=== PATIENT | male | born 1960 | race Caucasian/White ===

== ENCOUNTER 2019-06-30 16:23 | Emergency (ER) | payer MEDICARE, MEDICAID, SELFPAY ==
[2019-06-30 16:25] VITALS: BP 150/78; PULSE 73; RESP 16; TEMP 36.4; O2SAT 96; BMI 36.7
--- NOTE | 2019-06-30 16:35 | ED_ITS ---
Entered by Rodrigue Willis LPN, acting as scribe for Livia Dugan DO HPI - SOB/Dyspnea General: Chief Complaint: Shortness of Breath/Dyspnea Stated Complaint: SOB Time Seen by Provider: 06/30/19 16:34 Source: patient and family (spouse) Mode of arrival: ambulatory Limitations: no limitations History of Present Illness: HPI Narrative: 58 yo male with h/o Asthma presents with c/o SOB that started this am and has worsened. He does have an inhaler to use at home, without a spacer. Spouse could hear he was having increased sob when they were sitting at the table this afternoon. He also reports back pain in the mid to upper back this afternoon. He denies chest pain. Pt is Diabetic, has not checked his sugar today. MD elicited complaint: shortness of breath Pertinent past history: asthma Onset (ago): day(s) (onset today, this am) Timing: progressively worsening Exacerbating factors: exertion and talking Relieving factors: rest (some improvement with rest. ) Associated symptoms: Deny abdominal pain, chest pain, extremity pain, fever(s), hemoptysis, nausea, polydipsia, polyuria or vomiting Review of Systems Const: Denies: fever, chills, change in appetite or malaise Eyes: Denies: change in vision, blurry vision, eye discharge or eye redness ENMT: Denies: throat pain, uvular edema, painful swallowing, mouth pain, d ental pain, nasal congestion or facial/sinus pain Card: Denies: chest pain, irregular heart rhythm or leg pain with exertion Resp: Reports: shortness of breath; Denies: productive cough, wheezing or coughing up blood GI: Denies: abdominal pain, nausea, vomiting, diarrhea, constipation or fecal incontinence : Denies: flank pain, painful urination, urinary frequency, urinary urgency or urinary hesitancy Musc: Reports: back pain; Denies: neck pain, extremity pain or extremity swelling Skin/Breast: Denies: rash, itching, redness, yellow skin or dry skin Neuro: Denies: headache, numbness in extremities, weakness in extremities, changes in sensation, lack of coordination or difficulty walking Psych: Denies: anxiety, depression, mood swings, panic attacks, sleeping less, suicidal ideation or homicidal ideation Endo: Denies: excessive urination, excessive thirst or tired all the time Jose/Lymph: Denies: easy bruising, petechiae or enlarged lymph nodes All/Imm: Denies: hives, throat swelling, facial swelling, acute wheezing or seasonal allergies PFSH ED PFSH: Statuses (acute, chronic, etc) shown below reflect problem list status as previously entered and may not be historically accurate Social History Smoking and tobacco status: current every day smoker Physical Exam Const: COMMON NORMALS: no apparent distress, oriented x3, no limitations, healthy appearing, alert and well nourished GENERAL APPEARANCE: cooperative, comfortable, well kempt and well developed ORIENTATION/CONSCIOUSNESS: Yes awake, Yes oriented to person, Yes oriented to place and Yes oriented to time HENMT: COMMON NORMALS: normocephalic, head/scalp atraumatic, hearing grossly normal bilaterally, external ears normal, EAC's normal, TM's normal bilaterally, external nose normal, nasal mucous membranes and turbinates normal, moist oral mucous membranes, oropharynx normal, dentition normal and gingiva normal HEAD & SCALP: normal to inspection, normocephalic and atraumatic FACE & SINUS: normal facial exam NOSE: external nose normal and nasal mucous membranes and turbinates normal EXTERNAL EAR: Yes external ears normal EXTERNAL AUDITORY CANAL: EAC's normal TYMPANIC MEMBRANE: TM's normal bilaterally MOUTH: oral and palatal mucosa normal, lip normal and tongue normal THROAT: no uvular edema Eye: COMMON NORMALS: PERRL, EOMs intact bilaterally, conjunctivae normal, no scleral icterus and normal visual lawson by confrontation GENERAL EYE: normal appearance of both eyes and normal light reflex VISUAL ACUITY: Yes acuity normal ALIGNMENT: Yes alignment normal PERIORBITAL: periorbital findings normal EYELID: eyelids normal CONJUNCTIVA: Yes conjunctivae normal SCLERA: sclerae normal PUPIL: Yes PERRL and Yes accommodation reflex normal DIRECT OPHTHALMOSCOPY: Yes normal light reflex Neck/C-Spine: COMMON NORMALS: full ROM, no lymphadenopathy, supple, no meningeal signs and no JVD GENERAL: Yes normal visual inspection CAROTIDS: Yes normal carotid upstroke CERVICAL SPINE: Yes cervical ROM normal Lymph: LYMPHATIC: no lymphadenopathy noted Chest: COMMONS NORMALS: inspection of chest normal CHEST: Yes symmetrical chest wall rise Resp: COMMON NORMALS: normal respiratory effort, no retractions and no use of accessory muscles EFFORT & INSPECTION: Yes able to speak in complete sentences and Yes symmetric chest movement AUSCULTATION: no rales, no rhonchi, no wheezes and diminished lung sounds diffuse Cardio: COMMON NORMALS: no JVD, regular rate, regular rhythm, S1 normal heart sound, S2 normal heart sound, no murmurs and peripheral pulses 2+ throughout RATE: regular rate RHYTHM: regular rhythm HEART SOUNDS: S1 normal and S2 normal PERIPHERAL PULSES: pulses 2+ throughout GI: COMMON NORMALS: normal to inspection, nondistended, normoactive bowel sounds and non-tender : COMMON NORMALS: Yes no CVA tenderness BLADDER/KIDNEY EXAM: Yes no CVA tenderness Back/Pelvis: COMMON NORMALS: no CVA tenderness, thoracic and lumbar spine normal to inspection, no thoracic nor lumbar tenderness and thoraco-lumbar ROM normal Extremity: COMMON NORMALS: normal to inspection, full ROM, normal capillary refill, no calf tenderness and no pedal edema Neuro: COMMON NORMALS: oriented x3, CN's II-XII intact bilaterally, moves all extremities, no focal motor deficits, no sensory deficits noted and gait normal SENSORIUM/ORIENTATION: Yes alert, Yes oriented to person, Yes oriented to place and Yes oriented to time MENINGEAL SIGNS: Yes no meningeal signs SPEECH: speech normal GAIT: Yes normal gait MOTOR EXAM: strength 5/5 throughout, no pronator drift and no tremor noted Psych: COMMON NORMALS: mental status grossly normal, thought process normal, cooperative, affect normal, speech normal and activity/motor behavior normal APPEARANCE: Yes well kempt SPEECH: Yes normal speech THOUGHT PROCESS: normal thought process THOUGHT CONTENT: Yes normal thought content INSIGHT: insight good Skin: COMMON NORMALS: no rashes or lesions noted, no wounds, skin turgor normal and no jaundice GENERAL SKIN EXAM: no rashes or lesions noted and turgor normal Course ED course: Patient is feeling better after meds and mag. Ambulated around the department without issue. WIll provide aerochamber for MDI and dc home with short steroid burst due to DM history, and doxycycline, pt agrees, will follow up with PCP next week. Vital Signs: Vital signs: Vital Signs Temperature 97.6 F 06/30/19 16:25 Pulse Rate 72 06/30/19 17:13 Respiratory Rate 16 06/30/19 17:13 Blood Pressure 116/72 06/30/19 16:47 Pulse Oximetry 94 06/30/19 17:13 MDM - SOB/Dyspnea Lab Data: Labs: Lab Results 06/30/19 Range/Units 16:52 POC Glucose 143 (70-110) mg/dL Imaging Data^: CXR: Attestation: I personally reviewed and interpreted this imaging study as follows: My impression: nad EKG Data^: EKG 1: Computer Generated Interpretation: Measurements Intervals [place] Rate: 64 P: 39 DE: 227 QRS: 5 QRSD: 122 T: 29 QT: 404 QTc: 418 SINUS RHYTHM WITH FIRST DEGREE AV BLOCK INFERIOR MYOCARDIAL INFARCTION , PROBABLY OLD [40+ ms Q WAVE AND/OR ST/T AB ABNORMALITY IN II/aVF] No previous ECG available for comparison [id number] Dictated By:INTERFACE,USER Signed By:Signed Date/Time: DD/ 1705 Discharge Plan Discharge Patient Disposition: Home, Self-Care Clinical Impression: Acute exacerbation of chronic obstructive airways disease Condition: Stable Prescriptions: New doxycycline monohydrate 100 mg capsule 100 mg PO BID 7 Days Qty: 14 RF: 0 prednisone 50 mg tablet 50 mg PO DAILY 7 Days RF: 0 Discharge Diet: Usual diet Discharge Activity: Resume usual activity Patient Instructions: COPD Coding Level of Care Code ED Payment Rep for Chg Fwd Exam Problem Focused The documentation recorded by the Alba soliman Dani Elizabeth, LPN, accurately reflects the service I personally performed and the decisions made by Ritchie garrett Amanda, DO Jun 30, 2019 16:23
[2019-06-30 16:47] VITALS: BP 116/72; PULSE 72; RESP 17; O2SAT 94
--- NOTE | 2019-06-30 16:47 | ECG_ITS ---
Measurements Intervals [place] Rate: 64 P: 39 [place]: 227 QRS: 5 QRSD: 122 T: 29 QT: 404 QTc: 418 SINUS RHYTHM WITH FIRST DEGREE AV BLOCK INFERIOR MYOCARDIAL INFARCTION , PROBABLY OLD [40+ ms Q WAVE AND/OR ST/T AB ABNORMALITY IN II/aVF] No previous ECG available for comparison Electronically Signed On 07-01-2019 19:12:31 CAREER INFORMATION SPECIALIST by Senait Hartman M.D. [id number] f
--- NOTE | 2019-06-30 16:47 | XRR_ITS ---
PROCEDURE INFORMATION: Exam: XR Chest, 1 View Exam date and time: 06/30/2019 5:13 PM Age: 58 years old Clinical indication: Shortness of breath; Patient HX: PT denies HX of surgery, SOB increased last 2-3 days, PT is a current smoker; Additional info: SOA TECHNIQUE: Imaging protocol: XR of the chest Views: 1 view. COMPARISON: CR Chest 2 views* [id number] 08/07/2016 1:15 PM FINDINGS: Lungs: Unremarkable. No consolidation. Unchanged granulomas and mild fibrosis. Pleural space: Unremarkable. No pleural effusion. No pneumothorax. Heart/Mediastinum: Upper limits of normal. Bones/joints: Unremarkable. XR/XR chest 1V portable [id number] IMPRESSION: No acute findings.
[2019-06-30 16:55] LABS: Glucose Point of Care 143 mg/dL (70-110)
[2019-06-30] MEDS: magnesium sulfate premix 2 GM/50 ML PIGGYBACK IV (16:55)
[2019-06-30 17:05] VITALS: PULSE 74; RESP 16; O2SAT 94
[2019-06-30] MEDS: ipratropium-albuterol 3 mL Neb INHALATION (17:07)
[2019-06-30 17:13] VITALS: PULSE 72; RESP 16; O2SAT 94
[2019-06-30 18:28] VITALS: BP 132/76; PULSE 83; RESP 17; O2SAT 97
== END 2019-06-30 18:32 | disposition home or self-care (01) ==
PROVIDERS: Emergency Provider Emergency Medicine
DX: J44.1 Chronic obstructive pulmonary disease with (acute) exacerbation (principal); F17.210 Nicotine dependence, cigarettes, uncomplicated
CPT/HCPCS: 36416; 71045; 82962; 93005; 94640; 96365; 96374; 99282; J2930; J3475

== ENCOUNTER 2019-07-12 23:14 | Emergency (ER) | payer MEDICARE, MEDICAID, SELFPAY ==
[2019-07-12 23:19] VITALS: BP 135/88; PULSE 71; RESP 20; TEMP 36.4; O2SAT 99; BMI 36.7
--- NOTE | 2019-07-12 23:21 | ED_ITS ---
Entered by Priscilla Gerard, acting as scribe for Teresa Edwards Jul 12, 2019 23:14 HPI - SOB/Dyspnea General: Chief Complaint: Shortness of Breath/Dyspnea Stated Complaint: sob Time Seen by Provider: 07/12/19 23:17 History of Present Illness: HPI Narrative: 58 yo m came to the er pov with family for shortness of breath. Onset was tonight. Pt states that he has asthma and was having some chest tightness. Pt also states that he has a productive cough. MD elicited complaint: shortness of breath and cough Pertinent past history: asthma Onset (ago): day(s) (today) Timing: improved Severity: mild Exacerbating factors: nothing Relieving factors: nothing Associated symptoms: Reports cough; Deny abdominal pain, chest congestion, chest pain, diaphoresis, dizziness, e xtremity pain, fever(s), hemoptysis, nausea, orthopnea, palpitations, polydipsia, syncope or vomiting Treatment prior to arrival: none Review of Systems General: Reports: other (negative unless marked) Const: Denies: fever, chills, body aches, fatigue, malaise or diaphoresis Eyes: Denies: change in vision or blurry vision ENMT: Denies: throat pain, painful swallowing, hoarseness, ear pain, ear discharge, Change in hearing or nasal discharge Card: Denies: chest pain, palpitations, irregular heart rhythm, syncope, pre- syncope, shortness of breath on exertion or shortness of breath when lying down Resp: Reports: productive cough; Denies: shortness of breath, non-productive cough, wheezing, coughing up blood or chest congestion GI: Denies: abdominal pain, nausea, vomiting, vomiting blood, coffee grounds in vomit, diarrhea, constipation, cramping, blood in stool or black tarry stool : Denies: flank pain, difficulty urinating, painful urination, urinary frequency, urinary urgency, decreased urine ouput, urinary incontinence or blood in urine Musc: Denies: neck pain, back pain, extremity pain, extremity swelling, joint pain, joint swelling, joint warmth or joint stiffness Skin/Breast: Denies: rash, skin tenderness or yellow skin Neuro: Denies: headache, numbness in extremities, weakness in extremities, changes in sensation, lack of coordination, difficulty walking, dizziness, vertigo or confusion Endo: Denies: excessive thirst, tired all the time, cold intolerance, excessive sweating, flushing or hot flashes Jose/Lymph: Denies: easy bruising, easy bleeding, petechiae or enlarged lymph nodes All/Imm: Denies: acute wheezing PFSH ED PFSH: Statuses (acute, chronic, etc) shown below reflect problem list status as previously entered and may not be historically accurate Medical History (Updated 07/13/19 @ 01:29 by Teresa Edwards) Hypercholesteremia (Acute) Hypertension (Acute) Myocardial infarction (Acute) Social History Smoking and tobacco status: current every day smoker Physical Exam Const: COMMON NORMALS: no apparent distress, oriented x3, no limitations, healthy appearing and well nourished EXAM LIMITATIONS: no altered mental status GENERAL APPEARANCE: cooperative, well kempt and well developed ORIENTATION/CONSCIOUSNESS: Yes awake HENMT: COMMON NORMALS: normocephalic, head/scalp atraumatic, hearing grossly normal bilaterally, external ears normal, EAC's normal, external nose normal and moist oral mucous membranes HEAD & SCALP: normal to inspection, normocephalic and atraumatic FACE & SINUS: normal facial exam and face symmetric NOSE: external nose normal and nares normal EXTERNAL EAR: Yes external ears normal EXTERNAL AUDITORY CANAL: EAC's normal MOUTH: oral and palatal mucosa normal and tongue normal Eye: COMMON NORMALS: PERRL, EOMs intact bilaterally, conjunctivae normal and no scleral icterus GENERAL EYE: normal appearance of both eyes and normal light reflex CONJUNCTIVA: Yes conjunctivae normal SCLERA: sclerae normal CORNEA: Yes corneas normal PUPIL: Yes PERRL DIRECT OPHTHALMOSCOPY: Yes normal light reflex Neck/C-Spine: COMMON NORMALS: full ROM, no lymphadenopathy, supple, no meningeal signs and no JVD GENERAL: Yes normal visual inspection and Yes trachea midline CERVICAL SPINE: Yes cervical ROM normal Chest: COMMONS NORMALS: inspection of chest normal and palpation of chest normal Resp: COMMON NORMALS: normal respiratory effort, no retractions, no use of accessory muscles and clear to auscultation bilaterally EFFORT & INSPECTION: Yes able to speak in complete sentences AUSCULTATION: clear to auscultation bilaterally Cardio: COMMON NORMALS: no JVD, regular rate, regular rhythm, S1 normal heart sound, S2 normal heart sound, no gallops, no clicks, no murmurs and no rub JUGULAR VENOUS DISTENTION: no JVD RATE: regular rate RHYTHM: regular rhythm HEART SOUNDS: S1 normal and S2 normal GI: COMMON NORMALS: soft to palpation, non-tender, no hepatosplenomegaly and no masses INSPECTION: Yes normal to inspection PALPATION: Yes soft and Yes no hepatosplenomegaly : COMMON NORMALS: Yes no CVA tenderness BLADDER/KIDNEY EXAM: Yes no CVA tenderness Back/Pelvis: COMMON NORMALS: no CVA tenderness, thoracic and lumbar spine normal to inspection, no thoracic nor lumbar tenderness and thoraco-lumbar ROM normal Extremity: COMMON NORMALS: normal to inspection, full ROM, normal capillary refill, no joint enlargement, no clubbing, cyanosis or edema and no calf tenderness Neuro: COMMON NORMALS: oriented x3, CN's II-XII intact bilaterally, moves all extremities, no focal motor deficits and no sensory deficits noted MENINGEAL SIGNS: Yes no meningeal signs Psych: COMMON NORMALS: mental status grossly normal, thought process normal, cooperative, affect normal, speech normal and activity/motor behavior normal APPEARANCE: Yes well kempt SPEECH: Yes normal speech THOUGHT PROCESS: normal thought process Skin: COMMON NORMALS: no rashes or lesions noted, skin turgor normal, no jaundice, no petechiae and no mottling GENERAL SKIN EXAM: no rashes or lesions noted and turgor normal Course Vital Signs: Vital signs: Vital Signs Temperature 97.6 F 07/12/19 23:19 Pulse Rate 70 07/13/19 00:22 Respiratory Rate 18 07/13/19 00:04 Blood Pressure 118/84 07/13/19 00:33 Pulse Oximetry 94 07/13/19 00:22 MDM - SOB/Dyspnea MDM Narrative: Medical decision making narrative: Isiah comes in complaining of cough congestion but also chest tightness. There is questionable history whether he has had a heart attack in the past. He has had 3 EKGs here all of which have showed a sinus rhythm but no acute ST segment changes. His cough is productive of yellow and green sputum. He has had a subjective fever and chills. His flu is unremarkable and his chest x-ray is clear. He declined staying for any further cardiac evaluation. He does agree to return should his symptoms change or worsen but at this time he would like to be discharged. Lab Data: Attestation: I reviewed the patient's lab results. Labs: Lab Results 07/12/19 07/12/19 07/12/19 Range/Units 23:35 23:35 23:35 WBC 10.1 H (4.0-10.0) 10^3/ uL RBC 5.35 H (4.1-5.3) 10^6/u L Hgb 15.1 (11.7-16.6) g/dL Hct 46.8 (42.0-52.0) % MCV 87.5 (80-94) fL MCH 28.2 (28.0-34.0) pg MCHC 32.3 (30.0-36.0) g/dL RDW 13.0 (12.1-15.1) % Plt Count 348 (130-400) 10^3/c mm MPV 9.9 (7.4-10.4) fL Neut % (Auto) 60.7 % Lymph % (Auto) 27.1 % [place] % (Auto) 10.3 % Eos % (Auto) 1.0 % Baso % (Auto) 0.5 % Neut # (Auto) 6.1 (1.8-7.7) 10^3/u L Lymph # (Auto) 2.7 (0.8-4.8) 10^3/u L [place] # (Auto) 1.0 H (0.2-0.9) 10^3/u L Eos # (Auto) 0.1 (0.0-0.8) 10^3/u L Baso # (Auto) 0.1 (0.0-0.1) 10^3/u L Nucleated RBC % (a uto) 0 % Nucleated RBCs # 0.0 /100WBC D-Dimer (0-0.59) ug/mIFE U Sodium 137 (136-145) mmol/L Potassium 3.6 (3.5-5.1) mmol/L Chloride 97 L (98-107) mmol/L Carbon Dioxide 28 (22-29) mmol/L Anion Gap 15.6 (5-19) BUN 10 (6-20) mg/dL Creatinine 0.8 (0.7-1.2) mg/dL GFR Calculation 100.0 (90-130) mL/min Glucose 122 H (74-109) mg/dL Calcium 9.8 (8.5-10.5) mg/dL Total Bilirubin 0.9 (0.15-1.2) mg/dL AST 16 (0-40) U/L ALT 22 (0-41) U/L Alkaline Phosphata se 130 (40-130) IU/L Troponin T Baselin e 12 (0-15) ng/mL Troponin T 120 Min ree (0-15) ng/mL NT-Pro-B Natriuret Pep 29 (0-125) pg/mL Total Protein 6.7 (6.6-8.7) g/dL Albumin 4.1 (3.5-5.2) g/dL Globulin 2.6 (1.3-4.6) g/dL 07/13/19 07/13/19 Range/Units 00:00 01:30 WBC (4.0-10.0) 10^3/ uL RBC (4.1-5.3) 10^6/u L Hgb (11.7-16.6) g/dL Hct (42.0-52.0) % MCV (80-94) fL MCH (28.0-34.0) pg MCHC (30.0-36.0) g/dL RDW (12.1-15.1) % Plt Count (130-400) 10^3/c mm MPV (7.4-10.4) fL Neut % (Auto) % Lymph % (Auto) % [place] % (Auto) % Eos % (Auto) % Baso % (Auto) % Neut # (Auto) (1.8-7.7) 10^3/u L Lymph # (Auto) (0.8-4.8) 10^3/u L [place] # (Auto) (0.2-0.9) 10^3/u L Eos # (Auto) (0.0-0.8) 10^3/u L Baso # (Auto) (0.0-0.1) 10^3/u L Nucleated RBC % (a uto) % Nucleated RBCs # /100WBC D-Dimer 0.31 (0-0.59) ug/mIFE U Sodium (136-145) mmol/L Potassium (3.5-5.1) mmol/L Chloride (98-107) mmol/L Carbon Dioxide (22-29) mmol/L Anion Gap (5-19) BUN (6-20) mg/dL Creatinine (0.7-1.2) mg/dL GFR Calculation (90-130) mL/min Glucose (74-109) mg/dL Calcium (8.5-10.5) mg/dL Total Bilirubin (0.15-1.2) mg/dL AST (0-40) U/L ALT (0-41) U/L Alkaline Phosphata se (40-130) IU/L Troponin T Baselin e (0-15) ng/mL Troponin T 120 Min ree 11.96 (0-15) ng/mL NT-Pro-B Natriuret Pep (0-125) pg/mL Total Protein (6.6-8.7) g/dL Albumin (3.5-5.2) g/dL Globulin (1.3-4.6) g/dL Imaging Data^: CXR: My impression: No acute cardiopulmonary findings. Discharge Plan Discharge Patient Disposition: Home, Self-Care Clinical Impression: Bronchitis Asthma with exacerbation Qualifiers: Asthma severity: unspecified severity Asthma persistence: intermittent Qualified Code(s): J45.21 - Mild intermittent asthma with (acute) exacerbation Condition: Stable Prescriptions: New doxycycline hyclate 100 mg capsule 100 mg PO BID 10 Days Qty: 20 RF: 0 prednisone 10 mg tablets,dose pack See Rx Instructions .ROUTE .COMPLEX Qty: 21 RF: 0 doxycycline hyclate 100 mg tablet 100 mg PO BID 10 Days Qty: 20 RF: 0 albuterol sulfate 90 mcg/actuation HFA aerosol inhaler 2 inh INHALATION Q6H PRN (Reason: shortness of breath or wheezing) Qty: 6.7 RF: 0 Discharge Orders: Discharge Order (Routine); Ordered 07/13/19 Ordered By: Teresa Edwards Referrals: Emma Uribe DO [Referring] - 4-7 days Discharge Diet: Usual diet Discharge Activity: Increase activity as tolerated Patient Instructions: Acute Bronchitis (ED), Chronic Bronchitis (ED) Activity Restrictions/Additional Instructions: Please return to the ER immediately for any of the signs or symptoms listed on your discharge instruction sheets, worsening/changing of your symptoms, you are not getting better as quickly as expected, or for ANY other cause or concerns. Coding Level of Care Code ED Air Conditioning Coil Assembler for Eliana Boyce Exam Problem Focused The documentation recorded by the Moustapha soliman Stephanie Lyn, accurately reflects the service I personally performed and the decisions made by me, Teresa Edwards Jul 12, 2019 23:14
--- NOTE | 2019-07-12 23:25 | ECG_ITS ---
Measurements Intervals [place] Rate: 65 P: 40 [place]: 229 QRS: 3 QRSD: 122 T: 37 QT: 392 QTc: 410 SINUS RHYTHM WITH FIRST DEGREE AV BLOCK POSSIBLE RIGHT VENTRICULAR CONDUCTION DELAY [RSR (QR) IN V1/V2] MINIMAL VOLTAGE CRITERIA FOR LVH, CONSIDER NORMAL VARIANT [MEETS CRITERIA IN ONE OF: R(aVL), S(V1), R(V5), R(V5/V6)+S(V1)] POSSIBLE SEPTAL MYOCARDIAL INFARCTION , PROBABLY OLD [30 ms Q WAVE IN V1/V2] INFERIOR MYOCARDIAL INFARCTION , PROBABLY OLD [40+ ms Q WAVE AND/OR ST/T AB ABNORMALITY IN II/aVF] Compared to ECG 06/30/2019 17:05:35 No significant changes Electronically Signed On 07-13-2019 15:33:33 ENGINEER STEAM by Senait Hartman M.D. [id number]
--- NOTE | 2019-07-12 23:25 | XRR_ITS ---
PROCEDURE INFORMATION: Exam: XR Chest, 1 View Exam date and time: 07/13/2019 12:05 AM Age: 58 years old Clinical indication: Cough and shortness of breath; Additional info: Cough, shortness of breath, chest pain TECHNIQUE: Imaging protocol: XR of the chest Views: 1 view. COMPARISON: CR XR chest 1V portable [id number] 06/30/2019 5:04 PM FINDINGS: Lungs: The lungs are well expanded with no consolidation. Incidental note is again made of 10 mm calcified granuloma left lung base laterally. Pleural space: No pleural effusion or pneumothorax. Heart/Mediastinum: Unremarkable. No cardiomegaly. Bones/joints: Unremarkable. XR/XR chest 1V portable [id number] IMPRESSION: No acute findings.
[2019-07-12 23:47] LABS: Basophils # 0.1 10^3/uL (0.0-0.1); Basophils % 0.5 %; Eosinophils # 0.1 10^3/uL (0.0-0.8); Hematocrit 46.8 % (42.0-52.0); Hemoglobin 15.1 g/dL (11.7-16.6); Lymphocytes # 2.7 10^3/uL (0.8-4.8); Lymphocytes % 27.1 %; Mean Corpuscular HGB Conc 32.3 g/dL (30.0-36.0); Mean Corpuscular Hemoglobin 28.2 pg (28.0-34.0); Mean Corpuscular Volume 87.5 fL (80-94); Mean Platelet Volume 9.9 fL (7.4-10.4); Monocytes % 10.3 %; Neutrophils # 6.1 10^3/uL (1.8-7.7); Neutrophils % 60.7 %; Nucleated Red Blood Cells % 0 %; Platelet Count 348 10^3/cmm (130-400); Red Blood Count 5.35 10^6/uL (4.1-5.3); White Blood Count 10.1 10^3/uL (4.0-10.0)
[2019-07-13 00:03] LABS: Troponin(5th) Baseline 12 ng/mL (0-15)
[2019-07-13] MEDS: ipratropium-albuterol 3 mL Neb 9 ML INHALATION (00:03)
[2019-07-13 00:04] VITALS: PULSE 64; RESP 18; O2SAT 95
[2019-07-13 00:11] LABS: Alanine Aminotransferase 22 U/L (0-41); Albumin Level 4.1 g/dL (3.5-5.2); Alkaline Phosphatase 130 IU/L (40-130); Anion Gap 15.6 (5-19); Aspartate Amino Transferase 16 U/L (0-40); Blood Urea Nitrogen 10 mg/dL (6-20); Calcium 9.8 mg/dL (8.5-10.5); Carbon Dioxide 28 mmol/L (22-29); Chloride 97 mmol/L (98-107); Globulin 2.6 g/dL (1.3-4.6); Glucose 122 mg/dL (74-109); NT Pro B Type Natriuretic Pept 29 pg/mL (0-125); Potassium 3.6 mmol/L (3.5-5.1); Sodium 137 mmol/L (136-145); Total Bilirubin 0.9 mg/dL (0.15-1.2); Total Protein 6.7 g/dL (6.6-8.7)
[2019-07-13 00:22] VITALS: PULSE 70; O2SAT 94
[2019-07-13 00:33] VITALS: BP 118/84
[2019-07-13 00:57] LABS: D Dimer 0.31 ug/mIFEU (0-0.59)
--- NOTE | 2019-07-13 01:25 | ECG_ITS ---
Measurements Intervals [place] Rate: 67 P: 44 NM: 224 QRS: 7 QRSD: 117 T: 40 QT: 407 QTc: 431 SINUS RHYTHM WITH FIRST DEGREE AV BLOCK POSSIBLE INFERIOR MYOCARDIAL INFARCTION , PROBABLY OLD [30 ms Q WAVE IN II/aVF] Compared to ECG 06/30/2019 17:05:35 No significant changes Electronically Signed On 07-13-2019 15:36:52 IMPREGNATOR by Senait Hartman M.D. [id number]
[2019-07-13] MEDS: doxycycline 100 mg Tablet 200 MG PO (01:30)
[2019-07-13] MEDS: predniSONE 20 mg Tablet 60 MG PO (01:30)
[2019-07-13 01:53] LABS: Troponin 5 2HR 11.96 ng/mL (0-15)
[2019-07-13 01:56] VITALS: BP 149/88; O2SAT 94
[2019-07-13 02:00] LABS: Troponin 5 2HR Delta -0.04 ABS# (0-10)
[2019-07-13 02:00] LABS: Influenza A by IFA Negative (Negative); Influenza B by IFA Negative (Negative)
== END 2019-07-13 02:00 | disposition home or self-care (01) ==
PROVIDERS: Emergency Provider Emergency Medicine
DX: J45.21 Mild intermittent asthma with (acute) exacerbation (principal); J40 Bronchitis, not specified as acute or chronic; I10 Essential (primary) hypertension; I25.2 Old myocardial infarction; F17.210 Nicotine dependence, cigarettes, uncomplicated
CPT/HCPCS: 36415; 71045; 80053; 83880; 84484; 85025; 85378; 87040; 87804; 93005; 94640; 96374; 99282; J2930; J3535; J7512

== ENCOUNTER → 2019-07-24 12:57 | Outpatient (BNVA) | payer MEDICARE, MEDICAID, SELFPAY | PROVIDERS: Referring Provider Family Medicine; Visit Provider Otolaryngology | DX: J32.9 Chronic sinusitis, unspecified (principal); J34.2 Deviated nasal septum; J34.3 Hypertrophy of nasal turbinates; J34.89 Other specified disorders of nose and nasal sinuses; F17.210 Nicotine dependence, cigarettes, uncomplicated | CPT/HCPCS: 99203; 99214 ==

== ENCOUNTER 2019-07-26 19:13 | Emergency (ER) | payer MEDICARE, MEDICAID, SELFPAY ==
[2019-07-26 19:18] VITALS: BP 159/74; PULSE 67; RESP 18; TEMP 36.9; O2SAT 96; BMI 35.6
--- NOTE | 2019-07-26 19:22 | ED_ITS ---
HPI - SOB/Dyspnea General: Chief Complaint: Shortness of Breath/Dyspnea Stated Complaint: sob Time Seen by Provider: 07/26/19 19:22 Source: patient and family Mode of arrival: ambulatory Limitations: no limitations History of Present Illness: HPI Narrative: Patient is a 58-year-old male who presents to ED today with complaints of shortness of breath that has been present for approximately 2 months now. Patient has been seen here at our facility twice as well as by his PCP. Patient is an every day smoker. He tells me he has been diagnosed with asthma previously but denies history of COPD/emphysema. Patient reports he is supposed to be taking 3 separate inhalers however is only been doing his rescue inhaler. He was recently placed on prednisone and Levaquin through primary care. He also has a complaint of chronic sinusitis. Patient was recently diagnosed with ENT Dr. Richardson who is scheduling patient for an outpatient CT sinus for further examination. Patient does not complain of chest pain or productive cough. Denies hemoptysis. No fever/chills. Patient tells me symptoms today are the same as they have been previously. MD elicited complaint: shortness of breath Pertinent past history: asthma Onset (ago): month(s) Timing: constant Relieving factors: nothing Known history of: asthma Associated symptoms: Reports no associated symptoms; Deny abdominal pain, chest congestion, chest pain, fever(s), hemoptysis, lightheadedness, nausea, orthopnea, palpitations, syncope or vomiting Treatment prior to arrival: other (Prednisone, Levaquin) Review of Systems Const: Denies: fever, chills, body aches or fatigue Eyes: Denies: change in vision or blurry vision ENMT: Reports: nasal congestion and facial/sinus pain; Denies: throat pain, enlarged tonsils or painful swallowing Card: Reports: shortness of breath on exertion; Denies: chest pain, palpitations, irregular heart rhythm, edema, swelling of feet/ankles, lightheadedness, syncope, pre-syncope or shortness of breath when lying down Resp: Reports: shortness of breath; Denies: productive cough, non-productive cough, wheezing, pain on inspiration, change in phlegm color, coughing up blood or chest congestion GI: Denies: abdominal pain, nausea, vomiting, heartburn/indigestion or diarrhea : Denies: difficulty urinating or painful urination Musc: Denies: neck pain, back pain or joint pain Skin/Breast: Denies: rash PFSH ED PFSH: Statuses (acute, chronic, etc) shown below reflect problem list status as previously entered and may not be historically accurate Medical History (Updated 07/26/19 @ 21:20 by SHAY Smith) Chronic sinusitis (Acute) Hypercholesteremia (Acute) Hypertension (Acute) Myocardial infarction (Acute) Nasal obstruction (Acute) Nasal septal deformity (Acute) Nasal turbinate hypertrophy (Acute) Surgical History (Updated 07/25/19 @ 09:59 by Carlo Richardson MD) H/O sinus surgery (Acute) Social History Smoking and tobacco status: current every day smoker Physical Exam Const: COMMON NORMALS: no apparent distress, oriented x3, no limitations and alert NUTRITIONAL APPEARANCE: obese HENMT: COMMON NORMALS: normocephalic, head/scalp atraumatic, EAC's normal and TM's normal bilaterally HEAD & SCALP: normocephalic and atraumatic EXTERNAL AUDITORY CANAL: EAC's normal TYMPANIC MEMBRANE: TM's normal bilaterally Eye: COMMON NORMALS: PERRL and EOMs intact bilaterally PUPIL: Yes PERRL Chest: COMMONS NORMALS: inspection of chest normal and palpation of chest normal Resp: COMMON NORMALS: normal respiratory effort and clear to auscultation bilaterally AUSCULTATION: clear to auscultation bilaterally Cardio: COMMON NORMALS: regular rate and regular rhythm RATE: regular rate RHYTHM: regular rhythm Neuro: COMMON NORMALS: oriented x3 SENSORIUM/ORIENTATION: Yes alert Skin: COMMON NORMALS: no rashes or lesions noted GENERAL SKIN EXAM: no rashes or lesions noted Course ED course: pt reports feeling better after duoneb tx Vital Signs: Vital signs: Vital Signs Temperature 98.4 F 07/26/19 19:18 Pulse Rate 78 07/26/19 21:33 Respiratory Rate 18 07/26/19 21:33 Blood Pressure 139/81 07/26/19 21:33 Pulse Oximetry 96 07/26/19 21:33 MDM - SOB/Dyspnea MDM Narrative: Medical decision making narrative: Patient has been an every day smoker since the age of 15. I do suspect he has a component of COPD instead of the asthma that he states he has been diagnosed with. He needs to begin using his maintenance inhalers as prescribed. I will have case management set him up with Dr. Lopez/pulmonology for further evaluation. Patient's vitals have been completely stable throughout his stay. Lab Data: Labs: Lab Results 07/26/19 07/26/19 Range/Units 20:05 20:05 WBC 12.4 H (4.0-10.0) 10^3/ uL RBC 5.66 H (4.1-5.3) 10^6/u L Hgb 16.5 (11.7-16.6) g/dL Hct 50.5 (42.0-52.0) % MCV 89.2 (80-94) fL MCH 29.2 (28.0-34.0) pg MCHC 32.7 (30.0-36.0) g/dL RDW 13.4 (12.1-15.1) % Plt Count 334 (130-400) 10^3/c mm MPV 9.7 (7.4-10.4) fL Neut % (Auto) 66.9 % Lymph % (Auto) 24.1 % [place] % (Auto) 7.4 % Eos % (Auto) 0.6 % Baso % (Auto) 0.4 % Neut # (Auto) 8.3 H (1.8-7.7) 10^3/u L Lymph # (Auto) 3.0 (0.8-4.8) 10^3/u L [place] # (Auto) 0.9 (0.2-0.9) 10^3/u L Eos # (Auto) 0.1 (0.0-0.8) 10^3/u L Baso # (Auto) 0.1 (0.0-0.1) 10^3/u L Nucleated RBC % (a uto) 0 % Nucleated RBCs # 0.0 /100WBC Sodium 138 (136-145) mmol/L Potassium 3.6 (3.5-5.1) mmol/L Chloride 100 (98-107) mmol/L Carbon Dioxide 26 (22-29) mmol/L Anion Gap 15.6 (5-19) BUN 15 (6-20) mg/dL Creatinine 1.0 (0.7-1.2) mg/dL GFR Calculation 77.3 L (90-130) mL/min Glucose 187 H (65-115) mg/dL Calcium 9.7 (8.5-10.5) mg/dL Total Bilirubin 0.5 (0.15-1.2) mg/dL AST 16 (0-40) U/L ALT 21 (0-41) U/L Alkaline Phosphata se 138 H (40-130) IU/L NT-Pro-B Natriuret Pep 41 (0-125) pg/mL Total Protein 7.2 (6.6-8.7) g/dL Albumin 4.1 (3.5-5.2) g/dL Globulin 3.1 (1.3-4.6) g/dL Imaging Data^: CXR: My impression: NAD Discharge Plan Discharge Patient Disposition: Home, Self-Care Clinical Impression: COPD (chronic obstructive pulmonary disease) Qualifiers: COPD type: chronic bronchitis Chronic bronchitis type: unspecified Qualified Code(s): J42 - Unspecified chronic bronchitis Condition: Stable Prescriptions: No Action atorvastatin 40 mg tablet 40 mg PO DAILY RF: 0 montelukast 10 mg tablet 10 mg PO DAILY RF: 0 allopurinol 300 mg tablet 150 mg PO DAILY RF: 0 hydrochlorothiazide 25 mg tablet 25 mg PO DAILY RF: 0 benazepril 20 mg tablet 20 mg PO DAILY RF: 0 amlodipine 10 mg tablet 10 mg PO DAILY RF: 0 metformin 500 mg tablet 250 mg PO DAILY RF: 0 metoprolol succinate 100 mg capsule,sprinkle,ER 24hr 100 mg PO .twice daily RF: 0 omeprazole 20 mg capsule,delayed release(DR/EC) 20 mg PO DAILY RF: 0 prednisone 10 mg tablets,dose pack See Rx Instructions .ROUTE .COMPLEX Qty: 21 RF: 0 albuterol sulfate 90 mcg/actuation HFA aerosol inhaler 2 inh INHALATION Q6H PRN (Reason: shortness of breath or wheezing) Qty: 6.7 RF: 0 Discharge Orders: Discharge Order (Routine); Ordered 07/26/19 Ordered By: Jinny Tovar Discharge Diet: Usual diet Discharge Activity: Increase activity as tolerated Activity Restrictions/Additional Instructions: As discussed begin taking your maintenance inhalers as prescribed. Continue your current course of steroids and Levaquin. You should be hearing from case management tomorrow or Tuesday to have your appointment with Dr. Lopez/pulmonology set up. Discharge Date/Time: 07/26/19 21:31 Coding Level of Care Code ED Coremaking Machine Setter for Eliana Boyce
--- NOTE | 2019-07-26 19:38 | XR_ITS ---
WS: [id number] Portable AP upright chest, 07/26/2019 Clinical Data: cough/congestion Comparison: Portable chest, 07/12/2019 Findings: No nodules, masses or effusions are seen. The heart is normal. The pulmonary vascularity is not increased. No pneumonia or pneumothorax is seen. The left lateral lung granuloma is noted again. XR/XR chest 1V portable [id number] Impression: Negative chest.
[2019-07-26 20:06] VITALS: BP 123/89; PULSE 71; RESP 16; O2SAT 93
[2019-07-26 20:14] LABS: Basophils # 0.1 10^3/uL (0.0-0.1); Basophils % 0.4 %; Eosinophils # 0.1 10^3/uL (0.0-0.8); Eosinophils % 0.6 %; Hematocrit 50.5 % (42.0-52.0); Hemoglobin 16.5 g/dL (11.7-16.6); Lymphocytes % 24.1 %; Mean Corpuscular HGB Conc 32.7 g/dL (30.0-36.0); Mean Corpuscular Hemoglobin 29.2 pg (28.0-34.0); Mean Corpuscular Volume 89.2 fL (80-94); Mean Platelet Volume 9.7 fL (7.4-10.4); Monocytes # 0.9 10^3/uL (0.2-0.9); Monocytes % 7.4 %; Neutrophils # 8.3 10^3/uL (1.8-7.7); Neutrophils % 66.9 %; Nucleated Red Blood Cells % 0 %; Platelet Count 334 10^3/cmm (130-400); Red Blood Count 5.66 10^6/uL (4.1-5.3); Red Cell Distribution Width 13.4 % (12.1-15.1); White Blood Count 12.4 10^3/uL (4.0-10.0)
[2019-07-26 20:35] VITALS: PULSE 87; RESP 18; O2SAT 95
[2019-07-26] MEDS: ipratropium-albuterol 3 mL Neb INHALATION (20:35)
[2019-07-26 20:42] VITALS: PULSE 82; O2SAT 98
[2019-07-26 20:45] LABS: Alanine Aminotransferase 21 U/L (0-41); Albumin Level 4.1 g/dL (3.5-5.2); Alkaline Phosphatase 138 IU/L (40-130); Anion Gap 15.6 (5-19); Aspartate Amino Transferase 16 U/L (0-40); Blood Urea Nitrogen 15 mg/dL (6-20); Calcium 9.7 mg/dL (8.5-10.5); Carbon Dioxide 26 mmol/L (22-29); Chloride 100 mmol/L (98-107); Globulin 3.1 g/dL (1.3-4.6); Glomerular Filtration Rate 77.3 mL/min (90-130); Glucose 187 mg/dL (65-115); NT Pro B Type Natriuretic Pept 41 pg/mL (0-125); Potassium 3.6 mmol/L (3.5-5.1); Sodium 138 mmol/L (136-145); Total Bilirubin 0.5 mg/dL (0.15-1.2); Total Protein 7.2 g/dL (6.6-8.7)
[2019-07-26 21:33] VITALS: BP 139/81; PULSE 78; RESP 18; O2SAT 96
--- NOTE | 2019-07-30 09:34 | DCPLANNER ---
civil engineering project manager had message to scheduled a follow up appointment for patient at [facility], with Dr. Lopez. civil engineering project manager called [facility], spoke with Ela a follow up appointment is scheduled for patient for Wednesday, August 14, 2019 at 9:[address] Lopez. Clinic will call patient with appointment information.
--- NOTE | 2019-08-28 14:22 | DCPLANNER ---
Patient did attend appointment scheduled for 08.09.19 with [facility].
== END 2019-07-26 21:31 | disposition home or self-care (01) ==
PROVIDERS: Emergency Provider Physician Assistant
DX: J44.9 Chronic obstructive pulmonary disease, unspecified (principal); E78.00 Pure hypercholesterolemia, unspecified; I10 Essential (primary) hypertension; I25.2 Old myocardial infarction; F17.200 Nicotine dependence, unspecified, uncomplicated
CPT/HCPCS: 71045; 80053; 83880; 85025; 94640; 99281; 99283

== ENCOUNTER 2019-08-09 14:02 | Outpatient (CLI) | payer MEDICARE, MEDICAID, SELFPAY ==
--- NOTE | 2019-08-09 14:30 | CT_ITS ---
WS: [id number] CT SINUSES TECHNIQUE: Noncontrast CT of the paranasal sinuses with coronal and sagittal reformatted images. CLINICAL INFORMATION: sinuses COMPARISON: None. DLP: 566.[address] scans at [facility] use at least one of these dose optimization techniques: automat ed exposure control; mA and/or kV adjustment per patient size (includes targeted exams where dose is matched to clinical indication); or iterative reconstruction. FINDINGS: Prior extensive postoperative changes endoscopic sinus surgery. Postoperative changes bilateral maxil nick antrostomies with uncinectomies. Bilateral turbinate reduction. Ethmoidectomies. Septoplasty wit h minimal nasal septal deviation. Complete opacification of the left frontal sinus with inspissated secretions. Opacification left fron toethmoidal recess with fluid in the left anterior ethmoid air cells. Right frontal sinus is well aer ated. Findings compatible with sinusitis. Maxillary sinuses are well aerated. Ethmoid air cells are otherwise well aerated with trace mucosal t hickening. Sphenoid sinuses are well aerated. Opacification of the right greater than left sphenoid s inus ostia with mucosal thickening. Right sphenoid sinus ostia is occluded. Partially visualized mastoid air cells appear well aerated. Normal posterior nasopharynx. Normal para pharyngeal fat. Partially visualized intracranial contents are unremarkable. CT/CT sinus wo con* [id number] IMPRESSION: 1. Prior extensive postoperative changes sinus surgery with bilateral maxillar y antrostomies and uncinectomies. Bilateral turbinate reduction with ethmoidect omies. 2. Complete opacification of the left frontal sinus and frontal ethmoidal rece ss consistent with sinusitis. Right frontal sinus is well aerated. 3. Sphenoid sinuses are well aerated with occlusion of the right sphenoid sinu s ostia. 4. Maxillary sinuses are well aerated. Trace mucosal thickening in the ethmoid air cells. 5. Visualized mastoid air cells well aerated. 6. Minimal residual nasal septal deviation post septoplasty.
== END 2019-08-09 14:03 | disposition home or self-care (01) ==
LOC: CT 14:07
PROVIDERS: PCP Family Medicine; Visit Provider Otolaryngology
DX: J32.9 Chronic sinusitis, unspecified (principal)
CPT/HCPCS: 70486

== ENCOUNTER 2019-08-17 01:26 | Emergency (ER) | payer MEDICARE, MEDICAID, SELFPAY ==
[2019-08-17 01:41] VITALS: BP 140/81; PULSE 69; RESP 16; TEMP 36.6; O2SAT 97; BMI 34.5
[2019-08-17 01:43] VITALS: BP 138/88; PULSE 69; RESP 18; O2SAT 95
--- NOTE | 2019-08-17 01:48 | XRR_ITS ---
PROCEDURE INFORMATION: Exam: XR Chest, 1 View Exam date and time: 08/17/2019 3:21 AM Age: 58 years old Clinical indication: Shortness of breath; Additional info: SOB TECHNIQUE: Imaging protocol: XR of the chest Views: 1 view. COMPARISON: CR XR chest 1V portable [id number] 07/26/2019 8:29 PM FINDINGS: Lungs: Calcified granuloma left lower lobe. Lungs are well aerated without a focal area of consolidation. Pleural space: Unremarkable. No pleural effusion. No pneumothorax. Heart/Mediastinum: Unremarkable. No cardiomegaly. Bones/joints: Unremarkable. XR/XR chest 1V portable [id number] IMPRESSION: Lungs are well aerated without a focal area of consolidation.
--- NOTE | 2019-08-17 01:48 | ECG_ITS ---
Measurements Intervals [place] Rate: 65 P: 46 AR: 245 QRS: 8 QRSD: 118 T: 45 QT: 398 QTc: 415 SINUS RHYTHM WITH FIRST DEGREE AV BLOCK POSSIBLE INFERIOR MYOCARDIAL INFARCTION , OF INDETERMINATE AGE [30 ms Q WAVE IN II/aVF] Compared to ECG 07/13/2019 00:58:13 No significant changes Electronically Signed On 08-17-2019 11:10:07 BUSINESS AFFAIRS MANAGER by Pearl Connelly M.D. [email or web address]
--- NOTE | 2019-08-17 01:49 | ED_ITS ---
HPI - General Adult General: Chief complaint: Shortness of Breath/Dyspnea Stated complaint: shortness of breath Time Seen by Provider: 08/17/19 01:39 History of Present Illness: HPI narrative: Patient complains about shortness of breath started this morning. Denies chest pain. Is currently being treated for a sinus infection start antibiotics today. Was supposed get a nebulizer from the pharmacy this morning. Inhaler was changed by ordnance handler here than last week. Patient has cough. MD complaint: Cough and shortness of breath Onset (ago): hour(s) Associated symptoms: Reports cough and dyspnea; Deny chest pain, fevers/chills, headache(s), nausea, rash or vomiting Review of Systems Const: Denies: fever, chills or body aches Eyes: Denies: change in vision or blurry vision ENMT: Reports: nasal congestion; Denies: throat pain Card: Denies: chest pain Resp: Reports: shortness of breath and non-productive cough; Denies: productive cough GI: Denies: abdominal pain, nausea or vomiting : Denies: difficulty urinating Musc: Denies: extremity pain Skin/Breast: Denies: rash Neuro: Denies: headache Psych: Denies: anxiety or depression Jose/Lymph: Denies: easy bruising PFSH ED PFSH: Social History Smoking and tobacco status: current every day smoker cigarettes Packs smoked per day: 1 Years cigarettes smoked: 40 Quit status (tobacco): considering quitting Smoking risk assessment/counseling performed?: Yes Alcohol intake: current Alcohol intake frequency: holidays/special occasions only Lives independently: Yes Household members: significant other Marital status: Single Current occupational status: disabled History of recent travel: No Current gender identity: Male Physical Exam Const: COMMON NORMALS: no apparent distress, average body habitus and oriented x3 HENMT: COMMON NORMALS: normocephalic HEAD & SCALP: normal to inspection and normocephalic FACE & SINUS: normal facial exam Eye: COMMON NORMALS: conjunctivae normal GENERAL EYE: normal appearance of both eyes CONJUNCTIVA: Yes conjunctivae normal Neck/C-Spine: COMMON NORMALS: no JVD Chest: COMMONS NORMALS: inspection of chest normal Resp: COMMON NORMALS: normal respiratory effort and clear to auscultation bilaterally EFFORT & INSPECTION: Yes able to speak in complete sentences AUSCULTATION: clear to auscultation bilaterally OTHER: Has mild wheezing scattered throughout Cardio: COMMON NORMALS: no JVD, regular rate and regular rhythm RATE: regular rate RHYTHM: regular rhythm GI: COMMON NORMALS: normal to inspection, nondistended, normoactive bowel sounds Extremity: COMMON NORMALS: normal to inspection and full ROM Neuro: COMMON NORMALS: oriented x3 Course Vital Signs: Vital signs: Vital Signs Temperature 97.8 F 08/17/19 01:41 Pulse Rate 69 08/17/19 02:14 Respiratory Rate 18 08/17/19 02:14 Blood Pressure 128/79 08/17/19 02:14 Pulse Oximetry 96 08/17/19 02:14 MDM - General Adult MDM Narrative: Medical decision making narrative: xray no infiltrates Patient has had no shortness of breath since being here he does come complain about sinus congestion and drainage coming down he just had a CT done yesterday showed large amount of sinusitis. Breathing treatment has helped him he states feels much better EKG Data^: EKG 1: EKG interpretation date: 08/17/19 EKG interpretation time: 02:12 Interpretation: NSR with 1st degree av block, 65 bpm, pr 245ms Discharge Plan Discharge Patient Disposition: Home, Self-Care Clinical Impression: COPD exacerbation Sinusitis Qualifiers: Sinusitis location: maxillary Chronicity: acute Recurrence: non-recurrent Qualified Code(s): J01.00 - Acute maxillary sinusitis, unspecified Condition: Stable Prescriptions: New Medrol (Cameron) 4 mg tablets,dose pack See Rx Instructions .ROUTE .COMPLEX Qty: 21 RF: 0 No Action aspirin [Adult Aspirin Regimen] 81 mg tablet,delayed release (DR/EC) 81 mg PO DAILY RF: 0 Trelegy Ellipta 100-62.5-25 mcg blister with device 1 inh INHALATION Q24H 60 Days Qty: 60 RF: 2 azelastine 137 mcg (0.1 %) aerosol,spray 2 spray INTRANASAL BID 60 Days Qty: 30 RF: 2 fluticasone propionate [Flonase Allergy Relief] 50 mcg/actuation spray,suspension 1 spray INTRANASAL BID 60 Days Qty: 18.2 RF: 3 atorvastatin 40 mg tablet 40 mg PO DAILY RF: 0 allopurinol 300 mg tablet 150 mg PO DAILY RF: 0 hydrochlorothiazide 25 mg tablet 25 mg PO DAILY RF: 0 benazepril 20 mg tablet 20 mg PO DAILY RF: 0 amlodipine 10 mg tablet 10 mg PO DAILY RF: 0 metformin 500 mg tablet 250 mg PO DAILY RF: 0 metoprolol succinate 100 mg capsule,sprinkle,ER 24hr 100 mg PO .twice daily RF: 0 omeprazole 20 mg capsule,delayed release(DR/EC) 20 mg PO DAILY RF: 0 albuterol sulfate 90 mcg/actuation HFA aerosol inhaler 2 inh INHALATION Q6H PRN (Reason: shortness of breath or wheezing) Qty: 6.7 RF: 0 Discharge Orders: Discharge Order (Routine); Ordered 08/17/19 Ordered By: Ross Hernandez Referrals: Emma Uribe DO [Primary Care Provider] - Discharge Diet: Usual diet Discharge Activity: Increase activity as tolerated Patient Instructions: Sinusitis (ED), Chronic Obstructive Pulmonary Disease (ED) Activity Restrictions/Additional Instructions: Follow-up with medical provider as directed. Take medications as prescribed. Return to the ER or your medical provider if condition worsens. Please read and understand discharge instructions. If any questions ask please. Coding Level of Care Code ED Ncqa Specialist for Eliana 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
--- NOTE | 2019-08-17 02:10 | PC.NURSE ---
Introduced self to patient and initiated vital signs. Patient presents A&O x 4. NAD, ABCs intact, MAEW and agreeable to treatment. Respirations are even and unlabored. Pt states medications taken before coming to ER was albuterol to no avail. Pt states that the chief complaint for the ER visit today is due to shortness of breath. Pt denies any vision disturbances or lightheadedness. Bed left in lowest position in semi-fowlers with side rails up.Reassured patient of needs and will continue to monitor.
[2019-08-17 02:14] VITALS: BP 128/79; PULSE 69; RESP 18; O2SAT 96
[2019-08-17] MEDS: ipratropium-albuterol 3 mL Neb INHALATION (02:24)
[2019-08-17 02:25] VITALS: PULSE 63; RESP 17; O2SAT 95
[2019-08-17 02:30] VITALS: PULSE 66; O2SAT 94
[2019-08-17 03:55] VITALS: BP 125/72; PULSE 67; RESP 16; O2SAT 16
== END 2019-08-17 03:57 | disposition home or self-care (01) ==
PROVIDERS: Emergency Provider Nurse Practitioner Family; PCP Family Medicine
DX: J44.1 Chronic obstructive pulmonary disease with (acute) exacerbation (principal); J32.9 Chronic sinusitis, unspecified; F17.210 Nicotine dependence, cigarettes, uncomplicated; Z79.51 Long term (current) use of inhaled steroids
CPT/HCPCS: 71045; 93005; 94640; 96374; 99283; J2930

== ENCOUNTER → 2019-08-21 14:26 | Outpatient (BNVA) | payer MEDICARE, MEDICAID, SELFPAY | PROVIDERS: PCP Family Medicine; Visit Provider Otolaryngology | DX: J32.9 Chronic sinusitis, unspecified (principal); J34.2 Deviated nasal septum; J34.3 Hypertrophy of nasal turbinates; J34.89 Other specified disorders of nose and nasal sinuses; F17.210 Nicotine dependence, cigarettes, uncomplicated | CPT/HCPCS: 99213; 99214 ==

== ENCOUNTER 2019-08-27 14:51 | Outpatient (CLI) | payer MEDICARE, MEDICAID, SELFPAY ==
--- NOTE | 2019-08-27 15:25 | PFTS_ITS ---
Date of Study:08/27/2019 Date of Dictation: MECHANICS: Forced vital capacity (FVC) is normal. Forced expiratory volume in one second (FEV1) is normal. FEV1/FVC is normal. FLOW VOLUME LOOP: Normal. LUNG VOLUMES: Normal inspiratory capacity and reduced expiratory reserve volume. DIFFUSING CAPACITY FOR CARBON MONOXIDE: Normal. INTERPRETATION: The pulmonary function tests are normal. Gas exchange (DLCO) is normal. MTDD
== END 2019-08-27 14:52 | disposition home or self-care (01) ==
LOC: RT 14:56
PROVIDERS: PCP Family Medicine; Visit Provider Internal Medicine Critical Care Medicine
DX: J44.9 Chronic obstructive pulmonary disease, unspecified (principal)
CPT/HCPCS: 94010; 94729

== ENCOUNTER 2019-08-29 09:25 | Outpatient (CLI) | payer MEDICARE, MEDICAID, SELFPAY ==
--- NOTE | 2019-08-29 09:29 | CT_ITS ---
WS: [id number] LDCT LUNG CANCER SCREENING TECHNIQUE: Noncontrast CT of the chest with coronal and sagittal reformatted images. CLINICAL INFORMATION: NICOTINE DEPENDENCE,CIGARETTES,UNCOMPLICATED COMPARISON: None. DLP: 82.35 mGy.cm DIvol: 2.[address] scans at [facility] use at least one of these dose optimization techniques: automat ed exposure control; mA and/or kV adjustment per patient size (includes targeted exams where dose is matched to clinical indication); or iterative reconstruction. FINDINGS: Calcified granuloma left lower lobe. No suspicious pulmonary opacities. No noncalcified pulmonary nod ules. No acute pulmonary infiltrates. Aortic calcification. Coronary calcification. Calcified hilar nodes. Adrenal glands are normal. Small esophageal hiatal hernia. OTHER FINDINGS (S MODIFIER): None. CT/CT lung screening [id number] IMPRESSION: LUNG-RADS: 1-Negative FOLLOW UP: 12 Month: Continue annual screening with LDCT
== END 2019-08-29 09:26 | disposition home or self-care (01) ==
LOC: CT 09:26
PROVIDERS: Family Provider Family Medicine; PCP Family Medicine; Visit Provider Internal Medicine Critical Care Medicine
DX: Z12.2 Encounter for screening for malignant neoplasm of respiratory organs (principal); F17.210 Nicotine dependence, cigarettes, uncomplicated
CPT/HCPCS: G0297

== ENCOUNTER → 2019-10-11 09:28 | Outpatient (BNVA) | payer MEDICARE, MEDICAID, SELFPAY | PROVIDERS: PCP Family Medicine; Visit Provider Internal Medicine Critical Care Medicine | DX: R06.02 Shortness of breath (principal); J30.9 Allergic rhinitis, unspecified; J42 Unspecified chronic bronchitis; F17.200 Nicotine dependence, unspecified, uncomplicated | CPT/HCPCS: 36415; 82785; 86003 ==

== ENCOUNTER 2019-10-17 16:20 | Outpatient (CLI) | payer MEDICARE, MEDICAID, SELFPAY ==
--- NOTE | 2019-10-17 16:30 | USCV_ITS ---
Isiah Knowles Age: 58 Gender: M : 1960 Exam Date: 10/17/2019 16:22 Ordering Phys: Jenelle Lopez MD Technologist: Deb Demarco Exam Location: [facility] [place] Indication: SOB BP: 120 / 80 HR: 59 Rhythm: Sinus Technical Quality: Adequate MEASUREMENTS (Male / Female) Normal Values 2D ECHO LV Diastolic Diameter PLAX 4.9 cm 4.2 - 5.9 / 3.9 - 5.3 cm LV Systolic Diameter PLAX 3.6 cm LV Chamber Size 4.0 cm IVS Diastolic Thickness 1.5 cm 0.6 - 1.0 / 0.6 - 0.9 cm IVS Systolic Thickness 2.1 cm LVPW Diastolic Thickness 1.4 cm 0.6 - 1.0 / 0.6 - 0.9 cm LVPW Systolic Thickness 1.9 cm RV Chamber Size 3.2 cm LVOT Diameter 2.1 cm LV Ejection Fraction 2D Teich 51.3 % LV Ejection Fraction MOD 2C 55.9 % LV Ejection Fraction 2C AL 57.1 % LA Diameter 3.9 cm LA Width 3.1 cm LA Height 3.8 cm RA Width 3.5 cm RA Height 4.2 cm Aorta at Sinotubular Diameter 2.9 cm M-MODE LV Diastolic Diameter MM 5.6 cm 4.2 - 5.9 / 3.9 - 5.3 cm LV Systolic Diameter MM 4.0 cm LV Ejection Fraction MM Teich 54.0 % IVS Diastolic Thickness MM 1.3 cm 0.6 - 1.0 / 0.6 - 0.9 cm IVS Systolic Thickness MM 1.4 cm LVPW Diastolic Thickness MM 1.5 cm 0.6 - 1.0 / 0.6 - 0.9 cm LVPW Systolic Thickness MM 1.9 cm RV Diastolic Diameter MM 1.5 cm Aortic Annulus Diameter 3.6 cm LA Ao Ratio MM 1.1 MV E Point Septal Separation 0.9 cm DOPPLER AV Peak Velocity 121.0 cm/s LVOT Peak Velocity 93.0 cm/s AV Area Cont Eq vti 2.6 cm squared AV Area Cont Eq pk 2.8 cm squared MV Area PHT 3.4 cm squared Mitral E to A Ratio 0.9 MV E' Velocity 10.0 cm/s Mitral E to MV E' Ratio 7.4 Mitral E to LV E' Lateral Ratio 6.3 Mitral E to LV E' Septal Ratio 9.1 TR Peak Velocity 113.8 cm/s TR Peak Gradient 5.2 mmHg TR Mean Velocity 75.5 cm/s TR Mean Gradient 2.6 mmHg TR Velocity Time Integral 29.9 cm TV Peak E Velocity 60.0 cm/s Right Atrial Pressure 3.0 mmHg Pulmonary Artery Systolic Pressu 8.2 mmHg PV Peak Velocity 63.0 cm/s RV Acceleration Time 0.1 s RV Ejection Time 0.3 s RV AcT/ET 0.5 FINDINGS Left Ventricle Normal left ventricular cavity size. Normal left ventricular systolic function. No regional wall motion abnormalities. Left ventricular ejection fraction is estimated at 55 %. Normal diastolic function. Right Ventricle The right ventricle is normal in size and function. Right Atrium The right atrium is normal in size. Left Atrium The left atrium is normal in size. Mitral Valve Structurally normal mitral valve without significant stenosis or prolapse. There is no mitral regurgitation. Aortic Valve Mild aortic valve calcification. No aortic valve stenosis. No aortic valve regurgitation. Tricuspid Valve Mild tricuspid valve regurgitation. Pulmonic Valve Structurally normal pulmonic valve without significant stenosis. There is no pulmonic regurgitation. Pericardium Normal pericardium without effusion. Aorta Normal ascending aorta dimension. CONCLUSIONS 1-Normal left ventricular cavity size. Normal left ventricular systolic function. No regional wall motion abnormalities. Left ventricular ejection fraction is estimated at 55 %. Normal diastolic function. 2-Mild aortic valve calcification. No aortic valve stenosis. No aortic valve regurgitation. 3-Structurally normal mitral valve without significant stenosis or prolapse. There is no mitral regurgitation. 4-Mild tricuspid valve regurgitation. 5-There is no pericardial effusion. 6-Right atrial pressure is around 5 mm of mercury. 7-There are no prior echocardiogram studies to compare. Andrzej Ng MD (Electronically Signed) Final Date: 17 October 2019 17:38 S
== END 2019-10-17 16:21 | disposition home or self-care (01) ==
LOC: RAD 16:26
PROVIDERS: Family Provider Family Medicine; PCP Family Medicine; Visit Provider Internal Medicine Critical Care Medicine
DX: R06.02 Shortness of breath (principal); I70.0 Atherosclerosis of aorta; I07.1 Rheumatic tricuspid insufficiency
CPT/HCPCS: 93306

== ENCOUNTER 2020-01-06 02:54 | Emergency (ER) | payer MEDICARE, MEDICAID, SELFPAY ==
--- NOTE | 2020-01-06 02:58 | XRR_ITS ---
PROCEDURE INFORMATION: Exam: XR Chest, 1 View Exam date and time: 01/06/2020 2:59 AM Age: 59 years old Clinical indication: Cough TECHNIQUE: Imaging protocol: XR of the chest Views: 1 view. COMPARISON: CR XR chest 1V portable [id number] 08/17/2019 3:12 AM FINDINGS: Lungs: The lungs are clear bilaterally. Pulmonary vasculature within normal limits. Pleural space: No visible pneumothorax or pleural effusion. Heart/Mediastinum: Cardiomediastinal silhouette contour within normal limits. Bones/joints: No emergent findings identified. XR/XR chest 1V portable [id number] IMPRESSION: 1. No radiographic findings of acute cardiopulmonary disease.
[2020-01-06 03:14] VITALS: BP 143/84; PULSE 94; RESP 17; TEMP 36.4; O2SAT 94; BMI 36.8
--- NOTE | 2020-01-06 03:23 | W.ED.URI ---
HPI - URI/Sore Throat General: Chief Complaint: Upper Respiratory Infection Stated Complaint: coughing Time Seen by Provider: 01/06/20 03:13 Source: patient Mode of arrival: ambulatory Limitations: no limitations History of Present Illness: HPI Narrative: 59-year-old male he states he had a cough along with nasal congestion and sinus pain for last month. He states he has a difficulty time sleeping sick he is having a very large amount of a postnasal drip. He denies any fever. He states [facility] and stated he does not have COPD or any pulmonary issues. He denies any shortness of breath. He denies any fever. Denies any worsening or improving factors. Associated symptoms: Reports nasal congestion; Deny abdominal pain, chills, chest pain, diarrhea, fever(s), headache(s), nausea or vomiting Review of Systems Const: Denies: fever(s), chills, body aches or change in appetite Eyes: Denies: blurry vision or eye discomfort ENMT: Reports: nasal discharge, nasal congestion and post nasal drip Card: Denies: chest pain Resp: Reports: non-productive cough GI: Denies: abdominal pain, nausea, vomiting or diarrhea : Denies: dysuria Musc: Denies: neck pain or back pain Skin/Breast: Denies: rash Neuro: Denies: headache(s) Psych: Denies: depression Jose/Lymph: Denies: easy bruising All/Imm: Denies: urticaria PFSH ED PFSH: Medical History (Updated 01/06/20 @ 03:42 by Mariah Simmons MD) Chronic sinusitis Hypercholesteremia Hypertension Myocardial infarction Nasal obstruction Nasal septal deformity Nasal turbinate hypertrophy Surgical History H/O sinus surgery Family History Brother , Age 51 Heart attack Social History Smoking and tobacco status: current every day smoker cigarettes Packs smoked per day: 1 Years cigarettes smoked: 40 Smoking risk assessment/counseling performed?: Yes Alcohol intake: current Alcohol intake frequency: holidays/special occasions only Lives independently: Yes Household members: significant other Marital status: Single Current occupational status: disabled History of recent travel: No Current gender identity: Male Physical Exam Const: COMMON NORMALS: no acute distress, patient oriented x3 and healthy appearing HENMT: COMMON NORMALS: normocephalic and atraumatic HEAD & SCALP: normocephalic and atraumatic Eye: COMMON NORMALS: Equal, round and reactive pupils present and EOMs intact bilaterally PUPIL: Yes Equal, round and reactive pupils present Neck/C-Spine: COMMON NORMALS: full ROM and supple Chest: COMMONS NORMALS: normal inspection of the chest and normal palpation of entire chest wall Resp: COMMON NORMALS: normal respiratory effort, No retractions, No use of accessory muscles and clear to auscultation bilaterally AUSCULTATION: clear to auscultation bilaterally Cardio: COMMON NORMALS: regular rate, regular rhythm and No murmurs present (Cardio) RATE: regular rate RHYTHM: regular rhythm GI: COMMON NORMALS: Normal to inspection, nondistended, normoactive bowel sounds present, Soft to palpation, non-tender and no masses PALPATION: Yes Soft to palpation Extremity: COMMON NORMALS: normal to inspection and full ROM Neuro: COMMON NORMALS: patient oriented x3, moves all extremities and no focal motor deficits Psych: COMMON NORMALS: mental status grossly normal, Normal thought process present and cooperative THOUGHT PROCESS: Normal thought process present Skin: COMMON NORMALS: no rashes or lesions noted and no wounds GENERAL SKIN EXAM: no rashes or lesions noted Course Vital Signs: Vital signs: Vital Signs Temperature 97.5 F L 01/06/20 03:14 Pulse Rate 94 01/06/20 03:14 Respiratory Rate 17 01/06/20 03:14 Blood Pressure 143/84 01/06/20 03:14 Pulse Oximetry 94 01/06/20 03:14 MDM - URI/Sore Throat MDM Narrative: Medical decision making narrative: Patient presents with chronic cough along with sinusitis. Did instruct him to stop smoking. Patient is also to take a decongestant will place him on amoxicillin. He has no signs of pneumonia. Patient is stable for discharge is to follow-up with his primary care doctor in 3 to 5 days return if worsening. Imaging Data^: CXR: Attestation: I personally reviewed and interpreted this imaging study as follows: My impression: No acute abnormality Discharge Plan Discharge Patient Disposition: Home, Self-Care Clinical Impression: Sinusitis Qualifiers: Sinusitis location: unspecified location Chronicity: acute Recurrence: recurrent Qualified Code(s): J01.91 - Acute recurrent sinusitis, unspecified Condition: Stable Prescriptions: New amoxicillin 875 mg tablet 875 mg PO Q12H Qty: 20 RF: 0 No Action aspirin [Adult Aspirin Regimen] 81 mg tablet,delayed release (DR/EC) 81 mg PO DAILY RF: 0 azelastine 137 mcg (0.1 %) aerosol,spray 2 spray INTRANASAL BID 60 Days Qty: 30 RF: 2 atorvastatin 40 mg tablet 40 mg PO DAILY RF: 0 allopurinol 300 mg tablet 150 mg PO DAILY RF: 0 hydrochlorothiazide 25 mg tablet 25 mg PO DAILY RF: 0 benazepril 20 mg tablet 20 mg PO DAILY RF: 0 amlodipine 10 mg tablet 10 mg PO DAILY RF: 0 metformin 500 mg tablet 250 mg PO DAILY RF: 0 metoprolol succinate 100 mg capsule,sprinkle,ER 24hr 100 mg PO .twice daily RF: 0 omeprazole 20 mg capsule,delayed release(DR/EC) 20 mg PO DAILY RF: 0 albuterol sulfate 90 mcg/actuation HFA aerosol inhaler 2 inh INHALATION Q6H PRN (Reason: shortness of breath or wheezing) Qty: 6.7 RF: 0 Discharge Orders: Discharge Order (Routine); Ordered 01/06/20 Ordered By: Mariah Simmons Referrals: Emma Uribe DO [Primary Care Provider] - 4-7 days Discharge Diet: Advance as tolerated Discharge Activity: Resume usual activity Patient Instructions: Sinusitis (ED) Coding Level of Care Code 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
[2020-01-06] MEDS: dexamethasone 10 mg/mL INJ IM (03:37)
[2020-01-06 04:00] VITALS: BP 150/85; PULSE 88; RESP 22; O2SAT 94
--- NOTE | 2020-01-06 04:09 | PC.NURSE ---
assessment reviewed and agreed with
== END 2020-01-06 04:00 | disposition home or self-care (01) ==
PROVIDERS: Emergency Provider Emergency Medicine; PCP Family Medicine
DX: J01.91 Acute recurrent sinusitis, unspecified (principal); Z79.82 Long term (current) use of aspirin; I10 Essential (primary) hypertension; I25.2 Old myocardial infarction; F17.210 Nicotine dependence, cigarettes, uncomplicated
CPT/HCPCS: 12345; 71045; 96372; 99281; 99283; J1100

== ENCOUNTER 2020-01-09 15:38 | Emergency (ER) | payer MEDICARE, MEDICAID, SELFPAY ==
[2020-01-09 15:44] VITALS: BP 131/79; PULSE 73; RESP 18; TEMP 36.6; O2SAT 96; BMI 38.0
[2020-01-09 17:47] VITALS: RESP 18
--- NOTE | 2020-01-09 17:48 | XR_ITS ---
WS: [id number] LEFT RIBS, MULTIPLE VIEWS WITH PA CHEST HISTORY: fall from ladder COMPARISON: 01/06/2020 Lungs and mediastinum: Benign granuloma LEFT lower lung field measures 10 mm. Otherwise lungs are subhash ar. Normal vasculature. Ribs: No rib fractures or bone destruction identified. XR/XR ribs LT mn 3V w CXR1V [id number] IMPRESSION: No LEFT rib fractures identified.
--- NOTE | 2020-01-09 17:48 | XR_ITS ---
WS: [id number] LEFT KNEE: 3 VIEW(S) TECHNIQUE: AP, oblique(s) and lateral. HISTORY: fall from ladder COMPARISON: None available. No fracture or dislocation. No joint space narrowing or osteophytes. Enthesopathy at the quadriceps tendon attachment to the sanders lla. No joint effusion. No soft tissue abnormality. XR/XR knee LT 3V* [id number] IMPRESSION: Normal LEFT knee.
--- NOTE | 2020-01-09 18:25 | XR_ITS ---
WS: [id number] LEFT WRIST: 3 VIEW(S) TECHNIQUE: PA, oblique and lateral. HISTORY: trauma COMPARISON: None available. Acute avulsion fracture along the dorsal surface of the wrist. May be from the triquetrum. Scaphoid a ppears to be intact. No joint space abnormality. Significant soft tissue edema around the wrist. XR/XR wrist LT min 3V* [id number] IMPRESSION: Avulsion fracture from the dorsal wrist, probably from the triquetrum.
--- NOTE | 2020-01-09 18:25 | XR_ITS ---
WS: [id number] RIGHT KNEE: 3 VIEW(S) TECHNIQUE: AP, oblique(s) and lateral. HISTORY: fall COMPARISON: None available. No fracture or dislocation. No joint space narrowing or osteophytes. No joint effusion. No soft tissue abnormality. XR/XR knee RT 3V* [id number] IMPRESSION: Normal RIGHT knee.
--- NOTE | 2020-01-09 18:28 | W.ED.FALL ---
HPI - Fall General: Chief Complaint: Fall Stated Complaint: fell 20 feet from ladder Time Seen by Provider: 01/09/20 18:20 History of Present Illness: HPI Narrative: Patient complains about a fall from a ladder from about 6 to 8 foot line on a plywood floor. Has pain left rib area both knees and his left wrist. This happened about 2 hours ago.Said he landed flat on top of a ladder. MD complaint: fall Onset (ago): hour(s) Fall from: from height (distance) (8 foot) Fall witnessed: yes, by family Place fall occurred: home Loss of consciousness: None Symptoms prior to fall: none Location of injury: chest and other Location of injury - extremities: Left: forearm and Right: knee Severity: moderate Severity scale (1-10): 5 Quality: aching Associated symptoms-after fall: Reports no associated symptoms; Denies abdominal pain, chest pain or headache(s) Review of Systems Const: Denies: fever(s), chills or body aches Eyes: Denies: change in vision or blurry vision ENMT: Denies: throat pain or nasal congestion Card: Denies: chest pain or dyspnea on exertion Resp: Denies: dyspnea, productive cough or non-productive cough GI: Denies: abdominal pain, nausea or vomiting : Denies: difficulty urinating Musc: Reports: extremity pain (Bilateral knees left wrist and left-sided chest a fall off a ladder today) Skin/Breast: Denies: rash Neuro: Denies: headache(s) Psych: Denies: anxiety or depression Jose/Lymph: Denies: easy bruising PFS ED PFSH: Medical History (Updated 01/09/20 @ 18:54 by BELEM Stone) Chronic sinusitis Hypercholesteremia Hypertension Myocardial infarction Nasal obstruction Nasal septal deformity Nasal turbinate hypertrophy Surgical History H/O sinus surgery Family History Brother , Age 51 Heart attack Social History Smoking and tobacco status: current every day smoker cigarettes Packs smoked per day: 1 Years cigarettes smoked: 40 Smoking risk assessment/counseling performed?: Yes Alcohol intake: current Alcohol intake frequency: holidays/special occasions only Lives independently: Yes Household members: significant other Marital status: Single Current occupational status: disabled History of recent travel: No Current gender identity: Male Physical Exam Const: COMMON NORMALS: no acute distress, average body habitus and patient oriented x3 HENMT: COMMON NORMALS: normocephalic HEAD & SCALP: normal to inspection and normocephalic FACE & SINUS: normal facial exam Eye: COMMON NORMALS: conjunctivae normal GENERAL EYE: appearance normal, both eyes and all related structures CONJUNCTIVA: Yes conjunctivae normal Neck/C-Spine: COMMON NORMALS: full ROM and no JVD Chest: OTHER: Tenderness left side upper chest near the armpit no bruising swelling noted. Resp: COMMON NORMALS: normal respiratory effort and clear to auscultation bilaterally AUSCULTATION: clear to auscultation bilaterally Cardio: COMMON NORMALS: no JVD, regular rate and regular rhythm RATE: regular rate RHYTHM: regular rhythm GI: COMMON NORMALS: Normal to inspection, nondistended, normoactive bowel sounds present Extremity: COMMON NORMALS: normal to inspection and full ROM LEFT UPPER EXTREMITY: Yes wrist (Tender with range of motion mild swelling distal neuro intact) Neuro: COMMON NORMALS: patient oriented x3 Skin: NARRATIVE SKIN EXAM: No bruising noted to the chest area does have 2 abrasions to his knees each knee. Course Vital Signs: Vital signs: Vital Signs Temperature 97.9 F 01/09/20 15:44 Pulse Rate 73 01/09/20 15:44 Respiratory Rate 18 01/09/20 17:47 Blood Pressure 131/79 01/09/20 15:44 Pulse Oximetry 96 01/09/20 15:44 MDM - Fall MDM Narrative: Medical decision making narrative: Discussed wrist x-ray with Dr. Dixon. Treat patient for left wrist contusion rib contusion left side and bilateral knee contusion and abrasion. Discharge Plan Discharge Patient Disposition: Home, Self-Care Clinical Impression: Fall (on) (from) other stairs and steps, initial encounter Condition: Stable Prescriptions: No Action aspirin [Adult Aspirin Regimen] 81 mg tablet,delayed release (DR/EC) 81 mg PO DAILY RF: 0 azelastine 137 mcg (0.1 %) aerosol,spray 2 spray INTRANASAL BID 60 Days Qty: 30 RF: 2 atorvastatin 40 mg tablet 40 mg PO DAILY RF: 0 allopurinol 300 mg tablet 150 mg PO DAILY RF: 0 hydrochlorothiazide 25 mg tablet 25 mg PO DAILY RF: 0 benazepril 20 mg tablet 20 mg PO DAILY RF: 0 amlodipine 10 mg tablet 10 mg PO DAILY RF: 0 metformin 500 mg tablet 250 mg PO DAILY RF: 0 metoprolol succinate 100 mg capsule,sprinkle,ER 24hr 100 mg PO .twice daily RF: 0 omeprazole 20 mg capsule,delayed release(DR/EC) 20 mg PO DAILY RF: 0 albuterol sulfate 90 mcg/actuation HFA aerosol inhaler 2 inh INHALATION Q6H PRN (Reason: shortness of breath or wheezing) Qty: 6.7 RF: 0 amoxicillin 875 mg tablet 875 mg PO Q12H Qty: 20 RF: 0 Discharge Orders: Discharge Order (Routine); Ordered 01/09/20 Ordered By: Simba Hernandez Referrals: Emma Uribe DO [Primary Care Provider] - Discharge Diet: Usual diet Discharge Activity: Increase activity as tolerated Patient Instructions: Contusion in Adults (ED) Activity Restrictions/Additional Instructions: Wear splint for next few days. Can ice areas that hurt. Can take Tylenol or ibuprofen for discomfort. If wrist is not better in a week follow-up with your family medical provider. 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
[2020-01-09 19:00] VITALS: RESP 18
[2020-01-09 19:02] VITALS: RESP 18
--- NOTE | 2020-01-14 10:08 | PC.SOCIAL ---
Spoke with Pat at [facility] regarding referral. She will review with provider and follow up with patient or this nurse if unable to schedule.
--- NOTE | 2020-01-23 10:38 | DCPLANNER ---
Patient had a follow up appointment scheduled for 01.16.20 at the ortho clinic with Dr. Hamilton. Patient did attend the appointment.
== END 2020-01-09 19:03 | disposition home or self-care (01) ==
PROVIDERS: Emergency Provider Nurse Practitioner Family; PCP Family Medicine
DX: R07.81 Pleurodynia (principal); W11.XXXA Fall on and from ladder, initial encounter; Z79.82 Long term (current) use of aspirin; F17.210 Nicotine dependence, cigarettes, uncomplicated; I10 Essential (primary) hypertension; I25.2 Old myocardial infarction
CPT/HCPCS: 12345; 29125; 71101; 73110; 73562; 99281; 99283

== ENCOUNTER → 2020-01-16 08:07 | Outpatient (BNVA) | payer MEDICARE, MEDICAID, SELFPAY | PROVIDERS: PCP Family Medicine; Referring Provider Nurse Practitioner Family; Visit Provider Specialist | DX: S62.102A Fracture of unspecified carpal bone, left wrist, initial encounter for closed fracture (principal); X58.XXXA Exposure to other specified factors, initial encounter | CPT/HCPCS: 73110 ==

== ENCOUNTER 2020-01-16 11:03 | Outpatient (CLI) | payer MEDICARE, MEDICAID, SELFPAY | END 2020-01-16 11:04 | disposition home or self-care (01) | LOC: SPT 11:04 | PROVIDERS: PCP Family Medicine; Visit Provider Specialist | DX: Z46.89 Encounter for fitting and adjustment of other specified devices (principal); S62.112D Displaced fracture of triquetrum [cuneiform] bone, left wrist, subsequent encounter for fracture with routine healing; X58.XXXD Exposure to other specified factors, subsequent encounter; S62.102A Fracture of unspecified carpal bone, left wrist, initial encounter for closed fracture; X58.XXXA Exposure to other specified factors, initial encounter | CPT/HCPCS: 73110; 97760; L3984 ==

== ENCOUNTER → 2020-02-06 08:27 | Outpatient (BNVA) | payer MEDICARE, MEDICAID, SELFPAY | PROVIDERS: PCP Family Medicine; Visit Provider Specialist | DX: S62.102D Fracture of unspecified carpal bone, left wrist, subsequent encounter for fracture with routine healing (principal); S62.112D Displaced fracture of triquetrum [cuneiform] bone, left wrist, subsequent encounter for fracture with routine healing; X58.XXXD Exposure to other specified factors, subsequent encounter | CPT/HCPCS: 73110 ==

== ENCOUNTER 2020-02-11 16:17 | Outpatient (RCR) | payer MEDICARE, MEDICAID, SELFPAY | END 2020-02-18 23:59 | disposition home or self-care (01) | LOC: MOT 16:17 | PROVIDERS: PCP Family Medicine; Referring Provider Specialist; Visit Provider Specialist | DX: S62.122D Displaced fracture of lunate [semilunar], left wrist, subsequent encounter for fracture with routine healing (principal) | CPT/HCPCS: 97110; 97140; 97165 ==

== ENCOUNTER 2020-08-19 06:26 | Emergency (ER) | payer MEDICARE, MEDICAID, SELFPAY ==
[2020-08-19 06:32] VITALS: BP 143/86; PULSE 69; RESP 18; TEMP 36.8; O2SAT 97; BMI 36.7
[2020-08-19 06:36] VITALS: BP 143/86; PULSE 69; RESP 17; O2SAT 96
--- NOTE | 2020-08-19 07:05 | ED_ITS ---
HPI - URI/Sore Throat General: Chief Complaint: Upper Respiratory Infection Stated Complaint: Nasal Drainage Time Seen by Provider: 08/19/20 06:36 History of Present Illness: HPI Narrative: 59-year-old male presents complaining of sinus drainage which has been chronic for the last several months. He seen his primary care doctor he is also seen pulmonology. He states been worse the last 5 days he was seen for this as well and is currently on Claritin Levaquin and fluticasone nasal spray. MD elicited complaint: rhinorrhea Onset (ago): week(s) Consistency: constant and progressively worsening Description of mucous: clear and watery Exacerbating factors: supine positioning Relieving factors: nothing Associated symptoms: Reports congestion, nasal congestion and rhinorrhea; Deny abdominal pain, change in voice, chills, chest pain, cough, diarrhea, epistaxis, ear or mastoid pain, fever(s), headache(s), myalgias, nausea, rash, short of breath, sinus pain, stiffness, sore throat or vomiting Treatments prior to arrival: none Review of Systems Const: Denies: fever(s) or chills ENMT: Reports: nasal congestion; Denies: ear or mastoid pain, epistaxis or sinus pain Card: Denies: chest pain Resp: Denies: dyspnea, productive cough or non-productive cough GI: Denies: abdominal pain, nausea, vomiting or diarrhea : Denies: flank pain, dysuria, urinary frequency or urinary urgency Skin/Breast: Denies: rash or pruritus Neuro: Denies: headache(s) PFSH ED PFSH: Medical History Chronic sinusitis Hypercholesteremia Hypertension Myocardial infarction Nasal obstruction Nasal septal deformity Nasal turbinate hypertrophy Surgical History H/O sinus surgery Family History Brother , Age 51 Heart attack Social History Smoking and tobacco status: current every day smoker cigarettes Packs smoked per day: 1 Years cigarettes smoked: 40 Smoking risk assessment/counseling performed?: Yes Alcohol intake: current Alcohol intake frequency: holidays/special occasions only Lives independently: Yes Household members: significant other Marital status: Single Current occupational status: disabled History of recent travel: No Current gender identity: Male Physical Exam Const: COMMON NORMALS: no acute distress GENERAL APPEARANCE: cooperative and comfortable ORIENTATION/CONSCIOUSNESS: Yes awake, Yes oriented to person, Yes oriented to place and Yes oriented to time HENMT: COMMON NORMALS: normocephalic, atraumatic, hearing grossly normal bilaterally, external ears normal, EAC's normal, TM's normal bilaterally, Normal nasal mucous membranes and turbinates present, moist oral mucous membranes and oropharynx normal HEAD & SCALP: normocephalic and atraumatic NOSE: Normal nasal mucous membranes and turbinates present EXTERNAL EAR: Yes external ears normal EXTERNAL AUDITORY CANAL: EAC's normal TYMPANIC MEMBRANE: TM's normal bilaterally Eye: COMMON NORMALS: Equal, round and reactive pupils present, EOMs intact bilaterally, conjunctivae normal and no scleral icterus CONJUNCTIVA: Yes conjunctivae normal PUPIL: Yes Equal, round and reactive pupils present Neck/C-Spine: COMMON NORMALS: full ROM, no lymphadenopathy, supple and no JVD Lymph: LYMPHATIC: no lymphadenopathy noted and no lymphedema noted Resp: COMMON NORMALS: normal respiratory effort, No retractions, No use of accessory muscles and clear to auscultation bilaterally AUSCULTATION: clear to auscultation bilaterally Cardio: COMMON NORMALS: no JVD, regular rate, regular rhythm and No murmurs present (Cardio) RATE: regular rate RHYTHM: regular rhythm Neuro: SENSORIUM/ORIENTATION: Yes oriented to person, Yes oriented to place and Yes oriented to time Skin: COMMON NORMALS: no rashes or lesions noted GENERAL SKIN EXAM: no rashes or lesions noted Course Vital Signs: Vital signs: Vital Signs Temperature 98.2 F 08/19/20 06:32 Pulse Rate 69 08/19/20 06:36 Respiratory Rate 17 08/19/20 06:36 Blood Pressure 143/86 08/19/20 06:36 Pulse Oximetry 96 08/19/20 06:36 MDM - URI/Sore Throat MDM Narrative: Medical decision making narrative: DC loratadine instead use fexofenadine. Increase fluticasone to 2 sprays twice daily. Continue Levaquin. Follow-up with ENT which will arrange for through case management. Discharge Plan Discharge Patient Disposition: Home Clinical Impression: Chronic rhinitis Condition: Stable Prescriptions: New Litzy Allergy 180 mg tablet 180 mg PO DAILY Qty: 30 RF: 0 Changed Flonase Allergy Relief 50 mcg/actuation spray,suspension 2 spray INTRANASAL BID 30 Days Qty: 16 RF: 3 No Action aspirin [Adult Aspirin Regimen] 81 mg tablet,delayed release (DR/EC) 81 mg PO DAILY RF: 0 budesonide-formoterol [Symbicort] 80-4.5 mcg/actuation HFA aerosol inhaler 2 puff INHALATION Q12H 30 Days Qty: 10.2 RF: 3 Spiriva Respimat 1.25 mcg/actuation mist 2 puff inhalation DAILY 30 Days Qty: 4 RF: 4 azelastine 137 mcg (0.1 %) aerosol,spray 2 spray INTRANASAL BID 60 Days Qty: 30 RF: 2 azelastine 137 mcg (0.1 %) aerosol,spray 2 spray INTRANASAL BID 60 Days Qty: 30 RF: 3 fluticasone propionate [Flonase Allergy Relief] 50 mcg/actuation spray,suspension 1 spray INTRANASAL BID 30 Days Qty: 16 RF: 3 atorvastatin 40 mg tablet 40 mg PO DAILY RF: 0 allopurinol 300 mg tablet 150 mg PO DAILY RF: 0 hydrochlorothiazide 25 mg tablet 25 mg PO DAILY RF: 0 benazepril 20 mg tablet 20 mg PO DAILY RF: 0 amlodipine 10 mg tablet 10 mg PO DAILY RF: 0 metformin 500 mg tablet 250 mg PO DAILY RF: 0 metoprolol succinate 100 mg capsule,sprinkle,ER 24hr 100 mg PO .twice daily RF: 0 omeprazole 20 mg capsule,delayed release(DR/EC) 20 mg PO DAILY RF: 0 (DME) Fast Form Cock up Splint See Rx Instructions .ROUTE .MEDSUPPLY Qty: 1 RF: 0 albuterol sulfate 90 mcg/actuation HFA aerosol inhaler 2 inh INHALATION Q6H PRN (Reason: shortness of breath or wheezing) Qty: 6.7 RF: 0 Discharge Orders: Discharge ED (Routine); Ordered 08/19/20 Ordered By: Kranthi Madrid Referrals: Emma Uribe DO [Primary Care Provider] - Discharge Diet: Usual diet Discharge Activity: Resume usual activity Patient Instructions: Opioid Safety Activity Restrictions/Additional Instructions: Stop loratadine, take fexofenadine instead. Increase fluticasone nasal spray to 2 sprays twice daily. Case management will call with a appointment for the survey research center director. 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
--- NOTE | 2020-08-19 11:00 | DCPLANNER ---
commercial construction project manager had message to schedule a follow up appointment for patient with ENT. commercial construction project manager emailed patients information to both Praveena and Judy at [facility] General Surgery. Patients information will be printed and reviewed. Clinic will call patient with appointment information.
--- NOTE | 2020-08-21 11:39 | DCPLANNER ---
Patient has a follow up appointment scheduled for Saturday, August 22, 2020 at 3:[address] Cummins. Clinic will call patient with appointment information.
--- NOTE | 2020-09-04 14:34 | DCPLANNER ---
Patient had a follow up appointment scheduled for 08.22.[address] Ding at [facility] ENT - patient did attend appointment.
== END 2020-08-19 07:05 | disposition home or self-care (01) ==
PROVIDERS: Emergency Provider Family Medicine; PCP Family Medicine
DX: J31.0 Chronic rhinitis (principal); Z79.82 Long term (current) use of aspirin; Z79.84 Long term (current) use of oral hypoglycemic drugs; I10 Essential (primary) hypertension; I25.2 Old myocardial infarction; F17.210 Nicotine dependence, cigarettes, uncomplicated
CPT/HCPCS: 99281

== ENCOUNTER 2020-09-15 13:37 | Outpatient (CLI) | payer MEDICARE, MEDICAID, SELFPAY ==
--- NOTE | 2020-09-15 14:45 | CT_ITS ---
WS: [id number] CT SINUSES TECHNIQUE: Noncontrast CT of the paranasal sinuses with coronal and sagittal reformatted images. CLINICAL INFORMATION: CHRONIC SINUSITIS COMPARISON: CT August 09, 2019 DLP: 361.[address] scans at [facility] use at least one of these dose optimization techniques: automat ed exposure control; mA and/or kV adjustment per patient size (includes targeted exams where dose is matched to clinical indication); or iterative reconstruction. FINDINGS: Prior extensive postoperative changes sinus surgery with bilateral maxillary antrostomies and uncinec tomies. Bilateral turbinate reduction with ethmoidectomies. Minimal residual nasal septal deviation p ost septoplasty. Complete opacification left frontal sinus and frontal ethmoidal recess. Right frontal sinus is well a erated. Mild mucosal thickening ethmoid air cells. Maxillary sinuses are well aerated. Normal sphenoi d sinus. Mucosal thickening with narrowing of the sphenoid sinus ostia. 7 mm retention cyst right max illary sinus. Mild mucosal thickening in the mastoid tips bilaterally. CT/CT sinus wo con* [id number] IMPRESSION: 1. Paranasal sinus opacification similar to previous 2. Complete opacification left frontal sinus and frontoethmoidal recess is unc hanged. 3. Mild mucosal thickening in the ethmoid air cells and sphenoid sinus ostia. 4. Small right maxillary retention cyst measuring 7 mm. 5. Mild mucosal thickening mastoid tips. 6. Minimal residual nasal septal deviation post septoplasty. 7. Prior extensive postoperative changes sinus surgery with bilateral maxillar y antrostomies and uncinectomies. Bilateral turbinate reduction with ethmoidect omies.
== END 2020-09-15 13:38 | disposition home or self-care (01) ==
LOC: RADWPI 13:45
PROVIDERS: PCP Family Medicine; Visit Provider Otolaryngology
DX: J32.9 Chronic sinusitis, unspecified (principal); M27.40 Unspecified cyst of jaw; J34.2 Deviated nasal septum
CPT/HCPCS: 70486

== ENCOUNTER → 2020-11-20 09:50 | Outpatient (BNVA) | payer MEDICARE, MEDICAID, SELFPAY | PROVIDERS: PCP Family Medicine; Visit Provider Otolaryngology | DX: J32.1 Chronic frontal sinusitis (principal) | CPT/HCPCS: 87635 ==

== ENCOUNTER 2020-11-26 07:03 | Day surgery (SDC) | payer MEDICARE, MEDICAID, SELFPAY ==
[2020-11-25 13:19] VITALS: BMI 37.3
[2020-11-26] VITALS (8 sets, daily range): BP systolic 130–160; BP diastolic 75–107; PULSE 59–76; RESP 15–20; TEMP 36.2–36.9; O2SAT 95–97
--- NOTE | 2020-11-26 07:25 | ECG_ITS ---
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 Measurements Intervals [place] Rate: 61 P: 40 NC: 220 QRS: 8 QRSD: 120 T: 37 QT: 410 QTc: 415 Interpretive Statements SINUS RHYTHM WITH FIRST DEGREE AV BLOCK INFERIOR MYOCARDIAL INFARCTION [40+ ms Q WAVE AND/OR ST/T ABNORMALITY IN II/aVF], PROBABLY OLD Compared to ECG 08/17/2019 02:12:22 No significant changes Electronically Signed On 11-26-2020 16:33:24 CDT by Pearl Connelly M.D. [id number]
[2020-11-26 07:39] LABS: Glucose Point of Care 120 mg/dL (70-110)
[2020-11-26] MEDS: sodium chloride 0.9% 1,000 ML 30 ML IV (07:41)
--- NOTE | 2020-11-26 08:04 | ANES.PREANE2 ---
Pre-Anesthetic Assessment Pre-Anesthetic Assessment: Height/Weight: Height 1.78 m Weight 117.934 kg Temp Pulse Resp BP Pulse Ox 98.4 F 73 18 151/92 97 11/26/20 07:17 11/26/20 07:17 11/26/20 07:17 11/26/20 07:17 11/26/20 07:17 Preop Diagnosis: Chronic left frontal sinusitis Proposed Procedure: Operation Date: 11/26/20 08:40 Proposed Procedures p left frontal sinusectomy with endoscopic approach 39048 J32.1(Left) - Stephan Cummins MD Familial anesthetic complications: None Was Beta Yaneth taken within 24 hours: Yes Was Clonidine taken within 24 hours: N/A Last intake: Intake Last Liquid Date 11/26/20 Last Liquid Time 06:45 Last Solid Date 11/25/20 Last Solid Time 17:00 Social: Social History: Tobacco and No alcohol Exam: Pre-Anes Outpt Exam: alert, oriented x 3, clear to auscultation bilaterally and regular rate & rhythm Airway: Cervical ROM: WNL MP: 3 Dentition: False Pulmonary: Pulmonary: Asthma, COPD, Cough (d/t sinus drainage (chronic)) and Sleep apnea CV/HEM: CV/HEM: HTN and CO Comments: 10/07 echo EF 55%, otherwise normal. Able to achieve > 4 METS Metabolic: Metabolic: DM, Hyperlipidemia and Morbid obesity Anesthetic Plan: ASA status: 3 Anesthesia: General Risk of > 500 ml blood loss (7ml/kg in children): No Meds/Allergies Current Medications: Current Medications Generic Name Dose Route Start Last Admin Trade Name Freq PRN Reason Stop Dose Admin Sodium Chloride 1,000 mls @ 30 ml s/hr 11/26/20 07:15 11/26/20 07:41 Sodium Chloride 0.9% IV 11/27/20 07:14 30 mls/hr .Q24H JORY Administration PFSH Anesthesia PFSH: Medical History Chronic sinusitis Hypercholesteremia Hypertension Myocardial infarction Nasal obstruction Nasal septal deformity Nasal turbinate hypertrophy Surgical History H/O sinus surgery Family History Brother , Age 51 Heart attack Social History Smoking and tobacco status: current every day smoker cigarettes Packs smoked per day: 1 Years cigarettes smoked: 40 Smoking risk assessment/counseling performed?: Yes Alcohol intake: current Alcohol intake frequency: holidays/special occasions only Lives independently: Yes Household members: significant other Marital status: Single Current occupational status: disabled History of recent travel: No Current gender identity: Male Data Anesthesia Other Labs: Laboratory Results - last 48 hr 11/26/20 07:35 POC Glucose 120 H Cardiac Studies: No Data to Display
--- NOTE | 2020-11-26 08:09 | W.PM.OPSUD ---
Surgery/Procedure H&P Update DATE OF PROCEDURE: November 26, 2020 DATE H&P PERFORMED: 10/24/20 H&P UPDATE INFORMATION: I have reviewed H&P completed within last 30 days, I have examined patient prior to procedure and No changes to prior documentation CHANGES TO PREVIOUS DOCUMENTATION: None PREOP DIAGNOSIS: Chronic left frontal sinusitis PRIMARY INDICATION FOR PROCEDURE: Chronic left frontal sinusitis PLANNED PROCEDURE: Operation Date: 11/26/20 08:40 Proposed Procedures p left frontal sinusectomy with endoscopic approach 52691 J32.1(Left) - Stephan Cummins MD
[2020-11-26] MEDS: oxymetazoline 0.05% Nasal Spray 15 mL 15 SPRAY XX (09:00)
[2020-11-26] MEDS: neomycin-poly-bacitracin oint 28 gm 2 APPLIC TOPICAL (09:45)
--- NOTE | 2020-11-26 09:45 | P.OP_ITS ---
Operative Report Date of procedure: November 26, 2020 Pre-op Diagnosis: Chronic left frontal sinusitis Post-op diagnosis: same Post-op Findings: Purulent material flushed from left frontal sinus. No solid material in sinus. Procedure Done: Endoscopic left frontal sinusotomy with removal of contents of frontal sinus Pathology: none sent Surgeon: Stephan Cummins Anesthesia: General and Local Estimated blood loss (mL): 25 Complications: No complications Findings: Thick mucopurulent material flushed from left frontal sinus. Condition: stable Disposition: PACU Brief History: 60-year-old male patient has had chronic sinusitis for many years in the past. He has had previous nasal and sinus surgery. However he continues to have left frontal region headache pain and on CT scan was found to have an opacified frontal sinus. This was refractory to time and medical therapy antibiotics and steroid sprays. As result he is being brought to the operating room to undergo an endoscopic left frontal sinusotomy with removal of frontal sinus contents. The procedure risks and complications were explained in detail to the patient in the office setting. These risks included bleeding infection numbness scarring swelling bruising recurrence need for additional treatment potential injury to orbit and orbital contents including loss of vision or blurred vision potential injury to the frontal sinus posterior wall creating possible CSF leak meningitis brain abscess heart attack stroke or not surviving the surgery. With these things understood informed consent was granted. Procedure: Description of procedure: The patient was placed on the operating table in the supine position. Adequate general endotracheal tube anesthesia was obtained. He was repositioned into a semirecumbent position. He previously received Ancef IV for prophylaxis. His nose was packed with cottonoids bilaterally soaked in Afrin. Nasal hairs were trimmed with scissors bilaterally. The Afrin packs removed from the left side of the nose and the superior region of the nose on the left side was infiltrated with local. This included the anterior face of the ethmoid region the middle meatus the middle turbinate and the superior septum as well as inferior turbinate. A total of 6 mL of 2% Xylocaine with 1-100,000 epinephrine was utilized. Afrin packs were reapplied to the nose and the patient was prepped and draped in usual fashion. Timeout was accomplished identifying the patient date of plan procedure allergies fire risk and medications given. With all in agreement procedure continued. The Afrin cottonoids were once again removed from both sides of the nose. Viewing with direct and endoscopic visualization the middle meatus area the middle turbinate and the anterior ethmoid region was identified. The middle turbinate was infractured with a Hallie elevator. The patient had had a previous anterior and posterior ethmoidectomy. There was soft tissue however obstructing the anterior ethmoid area and the frontal recess. This was removed with up-bit ing through-cutting forceps. Then a small sinus seeker was passed finding the frontal recess up into the frontal sinus with ease. This was done under direct visualization with the endoscope. Then a larger size seeker was passed dilating the area. Then the curved suction tip with the largest bulbous tip was passed and fracturing of the frontal recess and ostia was accomplished. This was done only anteriorly. Then suctioning was accomplished. Frontal sinus cup forceps were passed through this created opening and repeated attempts to take specimens from this area that would be solid such as polyps or edematous tissue came out empty. Then I placed the irrigation tip back into the frontal sinus and irrigated with copious amounts of saline. Initially it came out as purulent and mucoid secretions. I did his repeatedly until it returned clear. Once that was accomplished the cottonoids were placed back into that region for a few minutes. They were then removed. There was still a little bit of ooze from that area and therefore I felt it best to pack that area. I used Telfa with Neosporin ointment on it packed up into the middle meatus and ethmoid area and the frontal sinus region. I did not pack the frontal recess. After that there was no further bleeding evident. The mouth and oropharynx were irrigated and suctioned. The face was cleansed. Drip pad was applied. The patient was then returned to the anesthesiologist for wake-up and extubation. The patient tolerated the procedure well had an estimated blood loss of 25 mL
--- NOTE | 2020-11-26 15:34 | ANE.PACU2 ---
Inpatient post-anesthesia follow up: Airway intact: Yes Vital signs: Temperature 97.8 F Pulse Rate 65 Respiratory Rate 18 Blood Pressure 160/93 Pulse Oximetry 96 Oxygen Delivery Me thod Room Air Oxygen Flow Rate 6 Fraction of Inspir ed Oxygen Hydration adequate: Yes Nausea and vomiting: No Pain level: 2 Mental status: Baseline
== END 2020-11-26 11:24 | disposition home or self-care (01) ==
PROVIDERS: PCP Family Medicine; Visit Provider Otolaryngology
PROC: (CPT 31231; principal; 2020-11-26 08:30)
DX: J32.1 Chronic frontal sinusitis (principal); J44.9 Chronic obstructive pulmonary disease, unspecified; G47.30 Sleep apnea, unspecified; I10 Essential (primary) hypertension; I25.2 Old myocardial infarction; E11.9 Type 2 diabetes mellitus without complications; E78.5 Hyperlipidemia, unspecified; E66.01 Morbid (severe) obesity due to excess calories; Z68.37 Body mass index [BMI] 37.0-37.9, adult; E78.00 Pure hypercholesterolemia, unspecified; F17.210 Nicotine dependence, cigarettes, uncomplicated
CPT/HCPCS: 31276; 36416; 82962; 93005; J0690; J1100; J2250; J2405; J2704; J2710; J3010; J3490; J7030

== ENCOUNTER 2021-01-16 10:03 | Outpatient (CLI) | payer MEDICARE, MEDICAID, SELFPAY ==
--- NOTE | 2021-01-16 10:15 | CT_ITS ---
WS: [id number] LDCT LUNG CANCER SCREENING TECHNIQUE: Noncontrast CT of the chest with coronal and sagittal reformatted images. CLINICAL INFORMATION: Nicotine Dependence COMPARISON: CT August 29, 2019 . DLP: 60.13 mGy.cm DIvol: 1.[address] scans at [facility] use at least one of these dose optimization techniques: automat ed exposure control; mA and/or kV adjustment per patient size (includes targeted exams where dose is matched to clinical indication); or iterative reconstruction. FINDINGS: Calcific granuloma left lower lobe is unchanged. No new suspicious pulmonary parenchymal opacities. N o acute pulmonary infiltrates. No focal pneumonia or pleural fluid. Calcified hilar nodes. Prominent anterior mediastinal and peribronchial lymph nodes nonspecific but l ikely reactive slightly progressed from previous. Largest lymph node measures 10 mm. Some of these ar e calcified. Adrenal glands are normal. Small esophageal hiatal hernia. Calcified granuloma left hepatic lobe. No axillary lymphadenopathy. Aortic calcification. Coronary calcification CT/CT lung screening [id number] IMPRESSION: LUNG-RADS: 2-Benign Appearance or Behavior FOLLOW UP: 12 Month: Continue annual screening with LDCT
== END 2021-01-16 10:04 | disposition home or self-care (01) ==
PROVIDERS: PCP Family Medicine; Visit Provider Internal Medicine Critical Care Medicine
DX: Z12.2 Encounter for screening for malignant neoplasm of respiratory organs (principal); F17.210 Nicotine dependence, cigarettes, uncomplicated
CPT/HCPCS: 71271

== ENCOUNTER 2021-01-17 12:53 | Observation (INO) | payer MEDICARE, MEDICAID, SELFPAY ==
[2021-01-17] VITALS (9 sets, daily range): BP systolic 121–148; BP diastolic 68–93; PULSE 60–74; RESP 10–19; TEMP 36.7; O2SAT 95–96; BMI 37.7
--- NOTE | 2021-01-17 13:03 | XRR_ITS ---
PROCEDURE INFORMATION: Exam: XR Chest Exam date and time: 01/17/2021 1:03 PM Age: 60 years old Clinical indication: Chest wall pain pain. Chest pain. TECHNIQUE: Imaging protocol: XR of the chest. Views: 1 view. COMPARISON: CR XR ribs LT mn 3V w CXR1V [id number] 01/09/2020 6:36 PM FINDINGS: Lungs: A calcified granuloma is noted in the lower lateral left chest. No pulmonary consolidation. Pleural spaces: No pleural effusion.; No pneumothorax. Heart/Mediastinum: The cardiac silhouette appears slightly more prominent than on the prior study; this may reflect differences in pulmonary inflation/positioning. No gross evidence of pneumomediastinum. Diaphragm: Elevation of the right hemidiaphragm. Bones/joints: No gross fracture. XR/XR chest 1V portable [id number] IMPRESSION: The cardiac silhouette appears slightly more prominent than on the prior study; this may reflect differences in pulmonary inflation/positioning.
--- NOTE | 2021-01-17 14:32 | ED_ITS ---
HPI - Chest Pain General: Chief Complaint: Chest Pain Stated Complaint: chest pain Time Seen by Provider: 01/17/21 14:12 History of Present Illness: MD complaint: chest pain Onset (ago): hour(s) (4.5) Timing of current episode: constant Prior episodes: No Onset: during rest Pain location: left chest Pain radiation: none Severity: mild Quality: tightness and heaviness Relieving factors: nothing Exacerbating factors: nothing Associated symptoms: Deny abdominal pain, diaphoresis, dyspnea, fever(s), leg edema, nausea, palpitations, sense of impending doom, syncope or vomiting Treatment prior to arrival: none Review of Systems Const: Denies: fever(s) or diaphoresis ENMT: Denies: throat pain, ear or mastoid pain, nasal discharge or nasal congestion Card: Denies: palpitations or syncope Resp: Denies: dyspnea GI: Denies: abdominal pain, nausea or vomiting : Denies: flank pain, dysuria, urinary frequency or urinary urgency Skin/Breast: Denies: rash or pruritus PFSH ED PFSH: Medical History (Updated 01/19/21 @ 08:04 by Kranthi Madrid DO) Allergic rhinosinusitis Allergic rhinosinusitis Chronic bronchitis Chronic frontal sinusitis Chronic sinusitis Chronic vasomotor rhinitis Fracture of triquetrum of left wrist Hypercholesteremia Hypertension Nasal obstruction Nasal septal deformity Nasal turbinate hypertrophy Nicotine addiction Obstructive sleep apnea Type 2 diabetes mellitus Surgical History (Updated 01/17/21 @ 18:50 by Twan Baxter MD) H/O sinus surgery History of sinus surgery Family History Brother , Age 51 Heart attack Social History Smoking and tobacco status: current every day smoker cigarettes Packs smoked per day: 0.5 Years cigarettes smoked: 40 [ Other cigarette details: Hx of 1 PPD x 40 years ] Smoking risk assessment/counseling performed?: Yes Alcohol intake: current Alcohol intake frequency: holidays/special occasions only Lives independently: Yes Household members: significant other Marital status: Single Current occupational status: disabled History of recent travel: No Current gender identity: Male Physical Exam Const: COMMON NORMALS: no acute distress GENERAL APPEARANCE: cooperative and comfortable ORIENTATION/CONSCIOUSNESS: Yes awake, Yes oriented to person, Yes oriented to place and Yes oriented to time Neck/C-Spine: COMMON NORMALS: no JVD Resp: COMMON NORMALS: normal respiratory effort, No retractions, No use of accessory muscles and clear to auscultation bilaterally AUSCULTATION: clear to auscultation bilaterally Cardio: COMMON NORMALS: no JVD, regular rate, regular rhythm and No murmurs present (Cardio) RATE: regular rate RHYTHM: regular rhythm GI: COMMON NORMALS: Soft to palpation and No hepatosplenomegaly present AUSCULTATION: Yes normoactive bowel sounds PALPATION: Yes Soft to palpation, No Tenderness to palpation present (GI), No Guarding due to palpation present (GI) and Yes No hepatosplenomegaly present Extremity: COMMON NORMALS: normal to inspection, capillary refill normal, no clubbing, cyanosis or edema, no calf tenderness and no pedal edema Neuro: SENSORIUM/ORIENTATION: Yes oriented to person, Yes oriented to place and Yes oriented to time Skin: COMMON NORMALS: no rashes or lesions noted GENERAL SKIN EXAM: no rashes or lesions noted Course Vital Signs: Vital signs: Vital Signs Temperature 97.9 F 01/18/21 12:00 Pulse Rate 74 01/18/21 14:46 Respiratory Rate 18 01/18/21 14:46 Blood Pressure 138/82 01/18/21 14:46 Pulse Oximetry 96 01/18/21 14:46 MDM - Chest Pain MDM Narrative: Medical decision making narrative: Patient continues to have chest pain has multiple comorbidities. Will place on observation consult c ardiology Lab Data: Labs: Lab Results 01/17/21 01/17/21 01/17/21 Range/Units 14:30 14:30 14:30 WBC 8.9 (4.0-10.0) 10^3/ uL RBC 5.50 H (4.1-5.3) 10^6/u L Hgb 16.1 (11.7-16.6) g/dL Hct 49.4 (42.0-52.0) % MCV 89.8 (80-94) fL MCH 29.3 (28.0-34.0) pg MCHC 32.6 (30.0-36.0) g/dL RDW 13.1 (12.1-15.1) % Plt Count 343 (130-400) 10^3/c mm MPV 10.3 (7.4-10.4) fL Neut % (Auto) 65.8 % Lymph % (Auto) 23.7 % [place] % (Auto) 8.7 % Eos % (Auto) 1.1 % Baso % (Auto) 0.4 % Neut # (Auto) 5.87 (1.8-7.7) 10^3/u L Lymph # (Auto) 2.1 (0.8-4.8) 10^3/u L [place] # (Auto) 0.8 (0.2-0.9) 10^3/u L Eos # (Auto) 0.1 (0.0-0.8) 10^3/u L Baso # (Auto) 0.0 (0.0-0.1) 10^3/u L Nucleated RBC % (a uto) 0 % Nucleated RBCs # 0.0 /100WBC Sodium 142 (136-145) mmol/L Potassium 3.6 (3.5-5.1) mmol/L Chloride 103 (98-107) mmol/L Carbon Dioxide 29 (22-29) mmol/L Anion Gap 13.6 (5-19) BUN 6 (6-20) mg/dL Creatinine 0.7 (0.7-1.2) mg/dL GFR Calculation 115.8 (90-130) mL/min Glucose 138 H (65-115) mg/dL Calculated Osmolal ity 294 (285-295) mOsm/k g Calcium 8.7 (8.5-10.5) mg/dL Iron (59-158) ug/dL TIBC mcg/dl % Saturation (20-50) % Unsat Iron Binding (112-347) ug/dL Total Bilirubin 0.6 (0.15-1.2) mg/dL AST 15 (0-40) U/L ALT 18 (0-41) U/L Alkaline Phosphata se 149 H (40-130) IU/L Troponin T Baselin e 12 (0-15) ng/L Troponin T 120 Min [place] (0-15) ng/L Delta Troponin T (0-10) ABS# NT-Pro-B Natriuret Pep (0-125) pg/mL Total Protein 6.1 L (6.6-8.7) g/dL Albumin 3.9 (3.5-5.2) g/dL Globulin 2.2 (1.3-4.6) g/dL Procalcitonin (0-0.5) ng/mL TSH (0.27-4.20) uIU/ mL 01/17/21 01/17/21 01/17/21 Range/Units 14:30 14:30 16:03 WBC (4.0-10.0) 10^3/ uL RBC (4.1-5.3) 10^6/u L Hgb (11.7-16.6) g/dL Hct (42.0-52.0) % MCV (80-94) fL MCH (28.0-34.0) pg MCHC (30.0-36.0) g/dL RDW (12.1-15.1) % Plt Count (130-400) 10^3/c mm MPV (7.4-10.4) fL Neut % (Auto) % Lymph % (Auto) % [place] % (Auto) % Eos % (Auto) % Baso % (Auto) % Neut # (Auto) (1.8-7.7) 10^3/u L Lymph # (Auto) (0.8-4.8) 10^3/u L [place] # (Auto) (0.2-0.9) 10^3/u L Eos # (Auto) (0.0-0.8) 10^3/u L Baso # (Auto) (0.0-0.1) 10^3/u L Nucleated RBC % (a uto) % Nucleated RBCs # /100WBC Sodium (136-145) mmol/L Potassium (3.5-5.1) mmol/L Chloride (98-107) mmol/L Carbon Dioxide (22-29) mmol/L Anion Gap (5-19) BUN (6-20) mg/dL Creatinine (0.7-1.2) mg/dL GFR Calculation (90-130) mL/min Glucose (65-115) mg/dL Calculated Osmolal ity (285-295) mOsm/k g Calcium (8.5-10.5) mg/dL Iron 57 L (59-158) ug/dL TIBC 235 mcg/dl % Saturation 24.2 (20-50) % Unsat Iron Binding 178 (112-347) ug/dL Total Bilirubin (0.15-1.2) mg/dL AST (0-40) U/L ALT (0-41) U/L Alkaline Phosphata se (40-130) IU/L Troponin T Baselin e (0-15) ng/L Troponin T 120 Min [place] 10.85 (0-15) ng/L Delta Troponin T -1.15 L (0-10) ABS# NT-Pro-B Natriuret Pep 66 (0-125) pg/mL Total Protein (6.6-8.7) g/dL Albumin (3.5-5.2) g/dL Globulin (1.3-4.6) g/dL Procalcitonin 0.04 (0-0.5) ng/mL TSH 0.79 (0.27-4.20) uIU/ mL Discharge Plan Discharge Patient Disposition: Admitted As Inpatient Admit Provider: Twan Baxter Clinical Impression: Chest pain Condition: Stable Discharge Diet: Cardiac, Low Salt and Low Cholesterol Discharge Activity: Increase activity as tolerated Coding Level of Care Code ED Fashion Buyer for Chg Fwd Exam Detailed
--- NOTE | 2021-01-17 15:03 | ECG_ITS ---
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
[2021-01-17 15:13] LABS: Alanine Aminotransferase 18 U/L (0-41); Albumin Level 3.9 g/dL (3.5-5.2); Alkaline Phosphatase 149 IU/L (40-130); Anion Gap 13.6 (5-19); Aspartate Amino Transferase 15 U/L (0-40); Basophils % 0.4 %; Blood Urea Nitrogen 6 mg/dL (6-20); Calcium 8.7 mg/dL (8.5-10.5); Carbon Dioxide 29 mmol/L (22-29); Chloride 103 mmol/L (98-107); Creatinine Clr Calc Pharmacy 148.8983; Eosinophils # 0.1 10^3/uL (0.0-0.8); Eosinophils % 1.1 %; Globulin 2.2 g/dL (1.3-4.6); Glomerular Filtration Rate 115.8 mL/min (90-130); Glucose 138 mg/dL (65-115); Hematocrit 49.4 % (42.0-52.0); Hemoglobin 16.1 g/dL (11.7-16.6); Lymphocytes # 2.1 10^3/uL (0.8-4.8); Lymphocytes % 23.7 %; Mean Corpuscular HGB Conc 32.6 g/dL (30.0-36.0); Mean Corpuscular Hemoglobin 29.3 pg (28.0-34.0); Mean Corpuscular Volume 89.8 fL (80-94); Mean Platelet Volume 10.3 fL (7.4-10.4); Monocytes # 0.8 10^3/uL (0.2-0.9); Monocytes % 8.7 %; Neutrophils # 5.87 10^3/uL (1.8-7.7); Neutrophils % 65.8 %; Nucleated Red Blood Cells % 0 %; Osmolality Calculated 294 mOsm/kg (285-295); Platelet Count 343 10^3/cmm (130-400); Potassium 3.6 mmol/L (3.5-5.1); Red Cell Distribution Width 13.1 % (12.1-15.1); Sodium 142 mmol/L (136-145); Total Bilirubin 0.6 mg/dL (0.15-1.2); Total Protein 6.1 g/dL (6.6-8.7); White Blood Count 8.9 10^3/uL (4.0-10.0)
[2021-01-17 15:23] LABS: Troponin(5th) Baseline 12 ng/L (0-15)
--- NOTE | 2021-01-17 15:30 | PC.PHAR ---
PT STATES HE TAKES CARE OF HIS OWN MEDICATIONS-PT STATES HE THINKS HIS METOPROLOL IS TARTRATE-[facility] IS CLOSED NO WAY TO VERIFY-PTS IS IN [address] AND DOESNT HAVE THE BOTTLE AND IS UNSURE WHICH ONE IT IS-PT STATES HE TAKES BENAZEPRIL,HCTZ, PHARMACY NOT OPEN TO VERIFY DOESNT SHOW IN EXT MED HISTORY-NOTES ARE MADE IN THE PHARMACY COMMENTS
[2021-01-17 17:16] LABS: Troponin 5 2HR 10.85 ng/L (0-15)
[2021-01-17 17:28] LABS: Troponin 5 2HR Delta -1.15 ABS# (0-10)
[2021-01-17] MEDS: aspirin 325 mg Tablet PO (18:17)
[2021-01-17] MEDS: nitroglycerin 1 gm/inch oint Pkt 1 INCH TOPICAL (18:17)
--- NOTE | 2021-01-17 18:38 | P.HP_ITS ---
Providers/Chief Complaint Admitting Physician: Twan Baxter MD Primary Care Provider: Emma Uribe DO Chief Complaint: chest pain History of Present Illness Isiah Knowles is a 60 year old male with past medical history significant for hypertension, hyperlipidemia, obesity, smoking, + faily history for CAD presented with worsening of chest pain upon exertion and now at rest with shortness of breath for the past 3 to 4 days. When chest pain became more consistent he decided to come to the ER. Troponins negative, no acute ST-T changes. Given significant comorbidities and significant symptoms, will consult cardiology Review of Systems General: Reports: 10 or more systems reviewed and unremarkable except in HPI and below Const: Denies: fever(s), chills, body aches, change in appetite, change in weight, malaise, night sweats, diaphoresis, change in sleep pattern, daytime sleepiness or snoring Eyes: Denies: change in vision, blurry vision, photophobia, eye discomfort or eye discharge ENMT: Denies: throat pain, enlarged tonsils, hoarseness, mouth pain, oral sores, dry mouth, tinnitus, nasal congestion or post nasal drip Card: Denies: chest pain, palpitations, irregular heart rhythm, edema, swelling of feet/ankles, lightheadedness, syncope, pre-syncope, dyspnea on exertion, orthopnea, leg pain with exertion or acrocyanosis Resp: Denies: dyspnea, productive cough, non-productive cough, wheezing, stridor, pain on inspiration, change in phlegm color, hemoptysis or chest congestion GI: Denies: abdominal pain, nausea, vomiting, hematemesis, coffee ground emesis, dysphagia, heartburn, diarrhea, constipation, bloating, GI cramping, change in bowel habits, pain on defecation, hematochezia or melena : Denies: flank pain, difficulty urinating, dysuria, urinary frequency, urinary urgency, urinary hesitancy, urinary dribbling, difficulty starting urination, change in urine stream, nocturia or hematuria Musc: Denies: neck pain, back pain, extremity pain, joint pain, joint swelling, joint redness, joint stiffness or limited range of motion Neuro: Denies: headache(s), numbness in extremities, weakness in extremities, sensory changes, lack of coordination, difficulty walking, frequent falls, dizziness, vertigo, confusion, Slurred speech present, difficulty communicating thoughts or seizure-like activity Psych: Denies: anxiety, depression, mood swings, panic attacks, hopelessness or irritability Endo: Denies: polyuria, polydipsia, tired all the time, cold intolerance, excessive sweating, flushing or heat intolerance Jose/Lymph: Denies: easy bruising or easy bleeding All/Imm: Denies: tongue swelling, facial swelling or acute wheezing Medications/Allergies Home Medications Medication Instructions Recorded Confirmed Last Taken Type albuterol sulfate 2 inh INHALATION Q6H PRN #6.7 gm 07/13/19 01/17/21 11/25/20 Rx allopurinol 300 mg tablet 300 mg PO QAM 07/24/19 01/17/21 01/17/21 09:00 History atorvastatin 40 mg tablet 40 mg PO BEDTIME 07/24/19 01/17/21 01/16/21 History benazepril 20 mg tablet 20 mg PO DAILY 07/24/19 01/17/21 11/25/20 History hydrochlorothiazide 25 mg tablet 25 mg PO DAILY 07/24/19 01/17/21 11/25/20 History metformin 500 mg tablet 250 mg PO BID tab 07/24/19 01/17/21 01/17/21 09:00 History omeprazole 20 mg capsule,delayed 20 mg PO DAILY 07/24/19 01/17/21 11/25/20 History release aspirin 81 mg tablet,delayed 81 mg PO QAM 08/14/19 01/17/21 01/17/21 09:00 History release budesonide-formoterol HFA 80 2 puff INHALATION Q12H 30 Days 01/10/20 01/17/21 11/25/20 Rx mcg-4.5 mcg/actuation aerosol #10.2 gm inhaler Fast Form Cock up Splint #1 each 01/16/20 01/17/21 Unknown Rx tiotropium bromide 1.25 2 puff INHALATION DAILY 30 Days #4 05/19/20 01/17/21 11/25/20 Rx mcg/actuation mist for inhalation g Flonase Allergy Relief 2 spray INTRANASAL BID PRN 01/17/21 01/17/21 Unknown History amlodipine 10 mg PO QAM 01/17/21 01/17/21 01/17/21 09:00 History azelastine 2 spray INTRANASAL BID PRN 01/17/21 01/17/21 Unknown History ipratropium bromide 2 spray INTRANASAL QID PRN 01/17/21 01/17/21 Unknown History loratadine 10 mg PO DAILY 01/17/21 01/17/21 01/17/21 History metoprolol tartrate 100 mg PO BID 01/17/21 01/17/21 Unknown History Allergies Allergy/AdvReac Type Severity Reaction Status Date / Time No Known Allergies Allergy Verified 01/17/21 15:24 PFSH Acute PFSH: Medical History (Updated 01/17/21 @ 22:53 by Twan Baxter MD) Allergic rhinosinusitis Chronic bronchitis Chronic sinusitis Fracture of triquetrum of left wrist Hypercholesteremia Hypertension Myocardial infarction Nasal obstruction Nasal septal deformity Nasal turbinate hypertrophy Obstructive sleep apnea Type 2 diabetes mellitus Surgical History (Updated 01/17/21 @ 18:50 by Twan Baxter MD) H/O sinus surgery History of sinus surgery Family History Brother , Age 51 Heart attack Social History Smoking and tobacco status: current every day smoker cigarettes Packs smoked per day: 0.5 Years cigarettes smoked: 40 [ Other cigarette details: Hx of 1 PPD x 40 years ] Smoking risk assessment/counseling performed?: Yes Alcohol intake: current Alcohol intake frequency: holidays/special occasions only Lives independently: Yes Household members: significant other Marital status: Single Current occupational status: disabled History of recent travel: No Current gender identity: Male Vitals/I&O/Wt Last Vital Signs Temp 98.0 F 01/17/21 13:20 Pulse 68 01/17/21 16:21 Resp 18 01/17/21 16:21 BP 136/93 01/17/21 16:43 Pulse Ox 96 01/17/21 16:21 Weight last 48 hrs Weight 119.295 kg Physical Exam Narrative: EXAM NARRATIVE: General: No acute distress, AO x3 HEENT: PERRLA, pupils bilaterally equal and reactive Chest: Normal vesicular breath sounds, no added sounds, equal good air entry bilaterally CVS: S1-S2 regular, no murmurs, no tachycardia, no gallops, no rubs Abdomen: Soft, nontender, no organomegaly, bowel sounds present Neuro: No focal deficits, no facial deformity, AO x3, power 5/5 in all limbs Data : 01/17/21 14:30 01/17/21 14:30 A&P Assessment and plan (1) Unstable angina: trop negative, EKG without acute changes COncerning symptoms, multiple comorbidities Cardiology consult to assess for stress vs angiogram continue ASA, atorvastatin, lisinopril, metoprolol telemetry monitoring 2D echocardiogram Status: Acute (2) Chest pain: Status: Acute (3) Hypertension: Status: Acute (4) Hypercholesteremia: Status: Acute (5) Type 2 diabetes mellitus: Status: Acute Attestations Medical Necessity Statement*: Observation admission for above defined care Coding Level of Care Code Acute Short Order Cook for [facility] Fwd Diagnoses Unstable angina I20.0 Chest pain R07.9 Hypertension I10 Hypercholesteremia E78.00 Type 2 diabetes mellitus E11.9
--- NOTE | 2021-01-17 19:03 | ECG_ITS ---
[facility] Test Date: 2021-01-17 Pat Name: Isiah Knowles Department: Room: 107 Gender: Male Retention Manager: : 1960 Requested By: Jinny Tovar Order Number: [id number] Reading MD: SEYMOUR WILCOX Measurements Intervals [place] Rate: 63 P: 51 IN: 221 QRS: 16 QRSD: 116 T: 32 QT: 403 QTc: 415 Interpretive Statements SINUS RHYTHM WITH FIRST DEGREE AV BLOCK MODERATE INTRAVENTRICULAR CONDUCTION DELAY [110+ ms QRS DURATION] NONSPECIFIC T-WAVE ABNORMALITY Compared to ECG 11/26/2020 07:56:13 Intraventricular conduction delay now present T-wave abnormality now present Myocardial infarct finding no longer present Electronically Signed On 01-17-2021 20:30:40 CDT by SEYMOUR WILCOX [email or web address]
[2021-01-17 19:56] LABS: NT Pro B Type Natriuretic Pept 66 pg/mL (0-125); Procalcitonin 0.04 ng/mL (0-0.5)
[2021-01-17 19:57] LABS: Thyroid Stimulating Hormone 0.79 uIU/mL (0.27-4.20)
[2021-01-17 20:07] LABS: Iron 57 ug/dL (59-158); Percent Saturation 24.2 % (20-50); Total Iron Binding Capacity 235 mcg/dl; Unsaturated Iron Binding 178 ug/dL (112-347)
--- NOTE | 2021-01-17 20:14 | PM.CONSULT ---
Providers/Reason For Consult Consulting Physician/Specialty*: Cardiology Reason for Consult*: Chest pain suspicious for angina Attending Physician: Twan Baxter MD Primary Care Provider: Emma Uribe DO History of Present Illness History of Present Illness Isiah Knowles is a 60 year old male past medical history significant for hypertension hyperlipidemia obesity 14-[id number]-[id number] of tobacco abuse, strong family history of coronary artery disease brother at the age of 51 with massive heart attack presented with worsening of chest pain upon exertion and now at rest with shortness of breath for the past 3 to 4 days. When chest pain became more consistent he decided to come to the ER. He was ruled out for acute coronary syndrome. I have been asked to assist in his care. Patient is very high risk for acute coronary syndrome. His presentation is consistent with unstable angina I would therefore proceed with left heart cath in the morning. I have detailed discussion with the patient regarding all risk benefit and alternative for the procedure. He has been explained the risk for stroke major minor bleed urgent emergent vascular or bypass surgery hematoma bruising and fistulous. He understood it and would like to proceed with it. Review of Systems Const: Denies: fever(s) or diaphoresis ENMT: Denies: throat pain, enlarged tonsils, ear or mastoid pain, nasal discharge or nasal congestion Card: Denies: palpitations or syncope Resp: Denies: dyspnea GI: Denies: abdominal pain, nausea or vomiting : Denies: flank pain, dysuria, urinary frequency or urinary urgency Musc: Denies: joint warmth Skin/Breast: Denies: rash or pruritus All/Imm: Denies: acute wheezing Meds/Allergies Home Medications and Allergies Home Medications Medication Instructions Recorded Confirmed Last Taken Type albuterol sulfate 2 inh INHALATION Q6H PRN #6.7 gm 07/13/19 01/17/21 11/25/20 Rx allopurinol 300 mg tablet 300 mg PO QAM 07/24/19 01/17/21 01/17/21 09:00 History atorvastatin 40 mg tablet 40 mg PO BEDTIME 07/24/19 01/17/21 01/16/21 History benazepril 20 mg tablet 20 mg PO DAILY 07/24/19 01/17/21 11/25/20 History hydrochlorothiazide 25 mg tablet 25 mg PO DAILY 07/24/19 01/17/21 11/25/20 History metformin 500 mg tablet 250 mg PO BID tab 07/24/19 01/17/21 01/17/21 09:00 History omeprazole 20 mg capsule,delayed 20 mg PO DAILY 07/24/19 01/17/21 11/25/20 History release aspirin 81 mg tablet,delayed 81 mg PO QAM 08/14/19 01/17/21 01/17/21 09:00 History release budesonide-formoterol HFA 80 2 puff INHALATION Q12H 30 Days 01/10/20 01/17/21 11/25/20 Rx mcg-4.5 mcg/actuation aerosol #10.2 gm inhaler Fast Form Cock up Splint #1 each 01/16/20 01/17/21 Unknown Rx tiotropium bromide 1.25 2 puff INHALATION DAILY 30 Days #4 05/19/20 01/17/21 11/25/20 Rx mcg/actuation mist for inhalation g Flonase Allergy Relief 2 spray INTRANASAL BID PRN 01/17/21 01/17/21 Unknown History amlodipine 10 mg PO QAM 01/17/21 01/17/21 01/17/21 09:00 History azelastine 2 spray INTRANASAL BID PRN 01/17/21 01/17/21 Unknown History ipratropium bromide 2 spray INTRANASAL QID PRN 01/17/21 01/17/21 Unknown History loratadine 10 mg PO DAILY 01/17/21 01/17/21 01/17/21 History metoprolol tartrate 100 mg PO BID 01/17/21 01/17/21 Unknown History Allergies Allergy/AdvReac Type Severity Reaction Status Date / Time No Known Allergies Allergy Verified 01/17/21 15:24 PFSH Acute PFSH: Medical History (Updated 01/17/21 @ 21:27 by Andrzej Ng MD) Allergic rhinosinusitis Chronic bronchitis Chronic sinusitis Fracture of triquetrum of left wrist Hypercholesteremia Hypertension Myocardial infarction Nasal obstruction Nasal septal deformity Nasal turbinate hypertrophy Obstructive sleep apnea Type 2 diabetes mellitus Surgical History (Updated 01/17/21 @ 18:50 by Twan Baxter MD) H/O sinus surgery History of sinus surgery Family History Brother , Age 51 Heart attack Social History Smoking and tobacco status: current every day smoker cigarettes Packs smoked per day: 0.5 Years cigarettes smoked: 40 [ Other cigarette details: Hx of 1 PPD x 40 years ] Smoking risk assessment/counseling performed?: Yes Alcohol intake: current Alcohol intake frequency: holidays/special occasions only Lives independently: Yes Household members: significant other Marital status: Single Current occupational status: disabled History of recent travel: No Current gender identity: Male Dietary Habits: Current diet type/program: regular Caffeine: Yes Caffeine intake frequency: carbonated beverages Number of carbonated beverage servings: 12 and coffee Number of coffee servings: 2 During the past year weight has: decreased > 10 lbs Vitals/I&O/Wt Last Vital Signs Temp 98.0 F 01/17/21 13:20 Pulse 60 01/17/21 20:10 Resp 16 01/17/21 20:10 BP 136/93 01/17/21 16:43 Pulse Ox 96 01/17/21 20:10 Weight last 48 hrs Weight 263 lb Physical Exam Narrative: EXAM NARRATIVE: GENERAL: Patient is alert, awake and oriented x3. NECK: No jugular vein distension. HEENT: No cyanosis. No icterus. No pallor. HEART: Regular S1 and S2. No murmur, rub or gallop. LUNGS: Clear to auscultate bilaterally. ABDOMEN: Soft, nontender and nondistended. Positive bowel sounds. No guarding, rebound or tenderness. CENTRAL NERVOUS SYSTEM: Grossly nonfocal. EXTREMITIES: Lower extremities without edema bilaterally. Tattoos on the arms and legs A&P Assessment and plan (1) Chest pain: As defined above chest pain suspicious for angina. We will proceed with left heart cath in the morning continue aspirin statin beta-ajit nitroglycerin and anticoagulation hold Lovenox before the cath tomorrow at 830. Patient has been consented by myself as above Status: Acute Qualifiers: Chest pain type: precordial pain Qualified Code(s): R07.2 - Precordial pain (2) Hypertension: Well-controlled continue current regimen Status: Acute Qualifiers: Hypertension type: essential hypertension Qualified Code(s): I10 - Essential (primary) hypertension (3) Hypercholesteremia: Continue statin. Status: Acute Consult Attestations Medical Necessity Statement: Patient require continuation hospitalization for above defined care. Coding Level of Care Code New Pt Acute Director Of Special Education for Chg Fwd Patient Type New History Comprehensive Exam Comprehensive Medical Decision Making Moderate Complexity Diagnoses Chest pain R07.2 Chest pain type: precordial pain Hypertension I10 Hypertension type: essential hypertension Hypercholesteremia E78.00
[2021-01-17 20:21] LABS: D Dimer 0.54 ug/mIFEU (0-0.59)
--- NOTE | 2021-01-17 21:00 | PC.NURSE ---
Dr Ng in to see patient. Received verbal orders to schedule Left Heart catheterization for 01/18 at 0830. Also to give Plavix 600mg PO once.
[2021-01-17] MEDS: atorvastatin 40 mg Tablet PO (21:58)
[2021-01-17] MEDS: clopidogrel 300 mg Tablet 600 MG PO (21:58)
[2021-01-17] MEDS: enoxaparin 40 mg/0.4 mL Syringe SUBCUT (21:59)
[2021-01-17 23:00] LABS: SARS Covid-2 Antigen Negative (Negative)
[2021-01-17] MEDS: morphine 4 mg/mL SDV 1 mL 2 MG IVP (23:12)
[2021-01-17] MEDS: pantoprazole DR 40 mg Tablet PO (23:13)
[2021-01-17] MEDS: nitroglycerin 1 gm/inch oint Pkt 0.5 INCH TOPICAL (23:13)
[2021-01-18] VITALS (25 sets, daily range): BP systolic 104–152; BP diastolic 71–102; PULSE 59–95; RESP 17–30; TEMP 36.4–36.6; O2SAT 91–97
--- NOTE | 2021-01-18 | XACV_ITS ---
: 1960 Exam Priority: Routine Procedure(s): Procedure Description: Diagnostic procedure Procedure Description: Left Heart Catheterization Procedure Description: Left ventriculography Procedure Description: Coronary Angiography Procedure Description: Pressure Wire Diagnostic Cath Status: Urgent Diagnostic Findings * Left Main has no disease. * Circumflex has no disease. * Right Coronary Artery has no disease. * Mid Left Anterior Descending: mild 40% stenosis, KENNY: 3 flow. * Coronary angiography shows right dominance. PCI Status: Elective Conclusions 1. FFR: After equalizing the distal and proximal pressure of FFR wire proximal to the lesion, mid LAD lesion was crossed with FFR wire. IV adenosine at rate of 140 mcg/min was started. Patient did not compliant of any symptoms, at then end of two minutes FFR was recorded as 0.91, which is not significant . 2. There is mild coronary artery disease with one vessel disease. 3. Normal left ventricular systolic function. Ejection fraction of 55%. Recommendations * Continue current medical management and risk factor modification. Diagnostic RX Recommendation: medical therapy and/or counseling Ventriculography Ejection Fraction: 55.0 % Pressures Phase:Rest AO : 134 / 71 ( 98 ) @ 8:31:00 AM 135 / 40 ( 80 ) @ 8:31:00 AM LV : 139 / -1 / 8 @ 8:30:00 AM 140 / -8 / 15 @ 8:31:00 AM 141 / -7 / 15 @ 8:31:00 AM Valves Phase:DefaultPhase AV : 4.0 @ 10:11:54 AM 4.0 @ 10:11:54 AM AV Mean Gradient: 17.0 @ 10:11:54 AM Clinical Evaluation EBL: 5mL-10mL Procedural Details Pre-Procedure Time Out. Procedure started. Procedure Consent Obtained. Physician arrived. Admit Source: In Patient. Current Diagnosis : Unstable angina. Identified patient by full name and date of as verbalized by the patient/guarantor. Does the consent match the physician's order: Yes. Accurate & Complete Informed Consent: Yes. Inpatient/Outpatient History & Physical on Chart: Yes. If H&P is completed, is and addenduem needed: Yes; If yes, is the addendum complete: N/A. Visualize and Verify Site with Patient/Guarantor: N/A. Relevant Radiology Images available: N/A. The risks, benefits, and alternatives of sedation and/or procedure were discussed by physician. The patient agrees to continue. [facility] Clinical Fraility Score: 3: Managing Well. Director Of Premium Seat Sales Indications: New Onset Angina. Chest Pain Symptom Assessment: Typical Angina Symptoms. Cardiovascular Instability: No. Correct patient, site and procedure confirmed by cath team. Current diagnosis: Unstable angina. Physician scubbed in. SHANDRA. Strong, equal hand fiber optics supervisor bilaterally. Lungs clear x 5 lobes. IV Site on Arrival: 20 gauge in the left anticubital. IV Fluids: 0.9% NaCl at KVO. 600 mL infused prior to clinical lab technologist. Pre Procedural Pulses: bilateral radial was 3+. Pre Procedural Pulses: bilateral posterior tibial was 3+. Pre Procedural Pulses: bilateral dorsalis pedis was 3+. Oxygen started at 2liters/min via nasal canula. right radial was prepped with chloroprep then draped in the usual sterile fashion. right groin was prepped with chloroprep then draped in the usual sterile fashion. Baseline sample Acquired. HR: 70 BPM. Immediate Pre-Procedure Time Out. Correct Patient: Yes; Correct Procedure: Yes; Correct Site: Yes; Correct Patient Position: Yes; Correct Supplies: Yes; Dried Flammable Prep: Yes; Blood Products Available: N/A;. Lidocaine 1% infiltrated to the right radial. Arterial access obtained. A 5 lithuanian TIG catheter in over wire. Multiple views taken of right coronary artery. Catheter redirected to the LCA. Unable to seat the catheter in the LCA. Removed over the exchange wire. A 5 lithuanian SAVAGE catheter in over wire. Catheter seated in the LCA. Multiple views taken of left coronary artery. Catheter removed over the exchange wire. A 5 lithuanian Angled Pig catheter in over wire. EDP Sample taken: LV 139/-2,8; HR: 79 BPM; SpO2: 97%. LV gram performed in SOSA @ 10 mL/second for a total of 30 mL. Patient EF: Normal. EDP Sample taken: LV 140/-9,15; HR: 83 BPM; SpO2: 96%. Pullback taken: LV 141/-8,15; AO 134/71(98); Mean: 17mmHg, Peak to Peak: 4mmHg, SEP: 8sec/min; HR: 78 BPM; SpO2: 96%. Catheter removed over the wire. Physician review of films. Physican scrubbed out. Physician scrubbed in to FFR possible LAD lesion. Inventory is CRD 6 FR XB 3.5 GUIDE. Equipment: 6F - Radial. Cardiac Cath Pack. [employer] Manifold Kit Model BT 2000. Heparinized Saline (2 units/mL), 1000 mL bag. 6 lithuanian XB 3.5 guide catheter was inserted over the wire. Removed over the wire. Unable to advance. 6 lithuanian XB 3.5 guide catheter was inserted over the wire. Guide seated in the LCS. FFR guidewire was advanced through the guide catheter to lesion in the mid LAD. FFR wire advanced down the LAD. An FFR value of 0.91 was obtained for a lesion located at Mid LAD. Fractional flow reserve measurements obtained. FFR WIRE OUT. Angiography performed. Catheter removed over the wire. Physician review of films. Physician scrubbed out. A TR Band was successful obtaining hemostatsis at the Right Radial artery insertion site. TR band placed. Hemostasis obtained. Post Procedure: Pulses reassessed and unchanged. PERRLA. Strong, equal hand fiber optics supervisor bilaterally. No VTE prophylaxis required. Medication's Wasted: Lidocaine 1% = 14 mL. Medication's Wasted: Nitro = 49.6 mg. Medication's Wasted: Versed = 1 mg. Medication's Wasted: Heparin = 3000 units. Medication's Wasted: Adenosine = 49 mg. Total IV fluids: mL. Total IV fluids: 100 mL. Fluoro: 17:06. Contrast type used: Omnipaque 300 mgI/mL, 500 mL bottle. Omnipaque 228 ml. Post-op diagnosis: Non Obstructive CAD. Complications: None. Estimated blood loss: 5mL-10mL. Procedure completed. Patient transferred by wheelchair to ICU. Vital chart was stopped. Access Site Site: Right Radial artery Sheath Size: 6 Fr Hemostasis Method: TR Band Hemostasis Success: Successful Procedure Medications Start: 9:01 AM Stop: 9:01 AM Medication: Versed Amount: 1 mg Route: I.V. Start: 9:01 AM Stop: 9:01 AM Medication: Fentanyl Amount: 50 mcg Route: I.V. Start: 9:06 AM Stop: 9:06 AM Medication: Versed Amount: 1 mg Route: I.V. Start: 9:12 AM Stop: 9:12 AM Medication: Nitrogylcerin Amount: 200 mcg Route: I.A. Start: 9:14 AM Stop: 9:14 AM Medication: Heparin Amount: 5000 units Route: I.V. Start: 9:43 AM Stop: 9:43 AM Medication: Nitrogylcerin Amount: 200 mcg Route: I.A. Start: 9:52 AM Stop: 9:52 AM Medication: Heparin Amount: 2000 units Route: I.V. Start: 9:40 AM Stop: 9:40 AM Medication: Fentanyl Amount: 50 mcg Route: I.V. Start: 9:57 AM Stop: 9:57 AM Medication: Adenosine (Adenocard) Amount: 899 Start: 10:00 AM Stop: 10:00 AM Medication: Adenosine (Adenocard) Start: 9:40 AM Stop: 9:40 AM Medication: Versed Amount: 1 mg Route: I.V. I, the attending physician, have reviewed and verified all procedure medications. Yes, all medications given per verbal order Report Signatures Finalized by Andrzej gN MD on 02/01/2021 04:43 PM
[2021-01-18 01:20] LABS: Amphetamines Screen Urine Negative (Negative); Barbiturates Screen Urine Negative (Negative); Benzodiazepines Screen Urine Negative (Negative); Cocaine Screen Urine Negative (Negative); Opiate Screen Urine Positive (Negative); PCP Screen Urine Negative (Negative); THC Screen Urine Negative (Negative)
--- NOTE | 2021-01-18 03:34 | PC.NURSE ---
Patient c/o feeling dehydrated. Patient has only produced 200ml of dark carlitos urine. Informed Dr Ng and received telephone order for NS at 100ml/hr to begin now.
[2021-01-18] MEDS: nitroglycerin 1 gm/inch oint Pkt 0.5 INCH TOPICAL (03:42)
[2021-01-18] MEDS: sodium chloride 0.9% 1,000 ML 100 ML IV ×2 (03:43→12:34)
[2021-01-18] MEDS: allopurinol 300 mg Tablet PO (05:40)
[2021-01-18] MEDS: amlodipine 10 mg Tablet PO (05:40)
[2021-01-18] MEDS: aspirin 81 mg EC Tablet PO (05:40)
[2021-01-18] MEDS: morphine 4 mg/mL SDV 1 mL 2 MG IVP (05:43)
[2021-01-18 08:34] LABS: Basophils # 0.1 10^3/uL (0.0-0.1); Basophils % 0.5 %; Eosinophils # 0.1 10^3/uL (0.0-0.8); Eosinophils % 0.6 %; Hematocrit 46.3 % (42.0-52.0); Hemoglobin 15.1 g/dL (11.7-16.6); Lymphocytes # 2.7 10^3/uL (0.8-4.8); Lymphocytes % 26.7 %; Mean Corpuscular HGB Conc 32.6 g/dL (30.0-36.0); Mean Corpuscular Hemoglobin 28.8 pg (28.0-34.0); Mean Corpuscular Volume 88.2 fL (80-94); Mean Platelet Volume 9.9 fL (7.4-10.4); Monocytes # 0.8 10^3/uL (0.2-0.9); Monocytes % 8.3 %; Neutrophils # 6.45 10^3/uL (1.8-7.7); Neutrophils % 63.6 %; Nucleated Red Blood Cells % 0 %; Platelet Count 340 10^3/cmm (130-400); Red Blood Count 5.25 10^6/uL (4.1-5.3); White Blood Count 10.1 10^3/uL (4.0-10.0)
[2021-01-18 08:45] LABS: Alanine Aminotransferase 18 U/L (0-41); Albumin Level 3.7 g/dL (3.5-5.2); Alkaline Phosphatase 130 IU/L (40-130); Anion Gap 13.4 (5-19); Aspartate Amino Transferase 16 U/L (0-40); Blood Urea Nitrogen 8 mg/dL (6-20); Calcium 8.6 mg/dL (8.5-10.5); Carbon Dioxide 28 mmol/L (22-29); Chloride 99 mmol/L (98-107); Globulin 2.1 g/dL (1.3-4.6); Glomerular Filtration Rate 138.4 mL/min (90-130); Glucose 119 mg/dL (65-115); Osmolality Calculated 283 mOsm/kg (285-295); Potassium 3.4 mmol/L (3.5-5.1); Sodium 137 mmol/L (136-145); Total Bilirubin 0.9 mg/dL (0.15-1.2); Total Protein 5.8 g/dL (6.6-8.7)
[2021-01-18 08:46] LABS: Cholesterol 144 mg/dL (0-200); HDL Cholesterol 24 mg/dL (60-100); LDL Cholesterol Calculated 81 mg/dL (50-129); Triglycerides 196 mg/dL (0-150); VLDL Cholestrol Calculation 39 mg/dL (0-30)
--- NOTE | 2021-01-18 09:00 | W.PM.OPSUD ---
Surgery/Procedure H&P Update DATE OF PROCEDURE: January 18, 2021 DATE H&P PERFORMED: 01/17/21 H&P UPDATE INFORMATION: I have reviewed H&P completed within last 30 days, I have examined patient prior to procedure and No changes to prior documentation PREOP DIAGNOSIS: Unstable angina PLANNED PROCEDURE: Operation Date: 01/18/21 08:30 Proposed Procedures p Cardiac Catheterization(Left) - Andrzej Ng MD PATIENT REASSESSED PRIOR TO SEDATION, WITH NO CHANGE NOTED: Yes PHYSICAL EXAM: alert, oriented x 3 and clear to auscultation bilaterally AIRWAY EVAL/ANESTHESIA PLAN: ASA II, Risks, benefits & alternatives of sedation and/or procedure discussed and Patient agrees to continue as planned
--- NOTE | 2021-01-18 10:19 | PM.PN ---
Subjective Subjective: Interval history: Patient underwent left heart cath. He was noted to have 40 to 50% mid eccentric LAD stenosis. It was further assessed with FFR for ischemia burden which comes out to be not significant therefore PCI is not indicated Vitals/I&O/Wt Last Vital Signs Temp 97.6 F 01/18/21 07:36 Pulse 68 01/18/21 07:36 Resp 20 H 01/18/21 07:36 BP 132/83 01/18/21 07:36 Pulse Ox 95 01/18/21 07:36 01/17/21 01/18/21 01/18/21 22:59 06:59 14:59 Intake Total 240 / 240 0 / 240 Output Total 200 / 200 Balance 240 / 240 -200 / 40 Weight last 48 hrs Weight 237 lb 8 oz Weight 263 lb Physical Exam Narrative: EXAM NARRATIVE: GENERAL: Patient is alert, awake and oriented x3. NECK: No jugular vein distension. HEENT: No cyanosis. No icterus. No pallor. HEART: Regular S1 and S2. No murmur, rub or gallop. LUNGS: Clear to auscultate bilaterally. ABDOMEN: Soft, nontender and nondistended. Positive bowel sounds. No guarding, rebound or tenderness. CENTRAL NERVOUS SYSTEM: Grossly nonfocal. EXTREMITIES: Lower extremities without edema bilaterally. Tattoos on the arms and legs Const: COMMON NORMALS: alert Resp: COMMON NORMALS: clear to auscultation bilaterally AUSCULTATION: clear to auscultation bilaterally Neuro: SENSORIUM/ORIENTATION: Yes alert Data : 01/18/21 08:03 01/18/21 08:03 A&P Assessment and plan (1) Chest pain: Most likely due to noncardiac origin. Patient was noted to have mid LAD 50% eccentric stenosis which could also represent myocardial bridge due to his waxing and waning pattern. FFR was performed which turned out to be nonsignificant at 0.90, recommend adding isosorbide mononitrate 30 mg at time of discharge. Once patient complete bedrest in 3 to 4-hour he can be discharged home. Follow-up with Letty Berkowitzcardiology PODIATRIST ASSISTANT in 7 to 10 days follow-up with Dr. Ng in 2 to 3 months. Continue rest of the medicine including beta-ajit and amlodipine. Advised quitting smoking. Advised lifestyle modification losing weight continue statin. Status: Acute Qualifiers: Chest pain type: precordial pain Qualified Code(s): R07.2 - Precordial pain (2) Hypertension: Well-controlled continue current regimen Status: Acute Qualifiers: Hypertension type: essential hypertension Qualified Code(s): I10 - Essential (primary) hypertension (3) Hypercholesteremia: Continue statin. Status: Acute (4) Needs smoking cessation education: Discussed and advised quitting smoking. Status: Acute Attestations Medical Necessity Statement*: From a cardiovascular perspective patient can be discharged home. Coding Level of Care Code Established Pt Acute Accounts Payable Representative for Chg Fwd Patient Type Established History Detailed Exam Detailed Medical Decision Making Moderate Complexity Diagnoses Chest pain R07.2 Chest pain type: precordial pain Hypertension I10 Hypertension type: essential hypertension Hypercholesteremia E78.00 Needs smoking cessation education F17.200
--- NOTE | 2021-01-18 10:30 | PC.NURSE ---
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 No hematoma or excess bleeding noted. Pt had no c/o pain or discomfort at the present time. Call light in reach.
[2021-01-18 10:49] LABS: Estmated Average Glucose 134; Hemoglobin A1C 6.3 % (4.0-6.0)
[2021-01-18] MEDS: pantoprazole DR 40 mg Tablet PO (12:16)
[2021-01-18] MEDS: metoprolol tartrate 50 mg Tablet 100 MG PO (12:17)
[2021-01-18] MEDS: lisinopril 20 mg Tablet PO (12:17)
[2021-01-18] MEDS: sodium chloride 0.9% 1,000 ML 50 ML IV (12:25)
[2021-01-18] MEDS: loratadine 10 mg Tablet PO (12:40)
--- NOTE | 2021-01-18 13:20 | P.DS_ITS ---
Discharge Providers Date of Admission: 01/17/21 18:26 Date of Discharge: January 18, 2021 Attending Provider at Admission: Twan Baxter MD Attending Provider at Discharge: Twan Baxter MD Primary Care Provider: Emma Uribe DO Diagnoses at Discharge Discharge Diagnosis (1) Chest pain: Status: Acute Qualifiers: Chest pain type: precordial pain Qualified Code(s): R07.2 - Precordial pain (2) Hypertension: Status: Acute Qualifiers: Hypertension type: essential hypertension Qualified Code(s): I10 - Essential (primary) hypertension (3) Hypercholesteremia: Status: Acute (4) Needs smoking cessation education: Status: Acute Reason for Visit Reason for Visit: chest pain Hospital Course Hospital Course Isiah Knowles is a 60 year old male with past medical history significant for hypertension, hyperlipidemia, obesity, smoking, + faily history for CAD presented with worsening of chest pain upon exertion and now at rest with shortness of breath for the past 3 to 4 days. When chest pain became more consistent he decided to come to the ER. Troponins negative, no acute ST-T changes. Given significant comorbidities and significant symptoms cardiology was consulted and he underwent left heart cath on January 18. Left heart cath showed mid LAD 50% eccentric stenosis which could also represent myocardial bridge due to his waxing and waning pattern. FFR was performed which turned out to be nonsignificant at 0.90. Patient is been discharged hemodynamically stable condition with advised to f ollow-up with his primary care provider within next 1 week, Letty Berkowitzcardiology ORCHESTRA MUSICIAN in 7 to 10 days follow-up with Dr. Ng in 2 to 3 month Physical Exam Narrative: EXAM NARRATIVE: General: No acute distress, AO x3 HEENT: PERRLA, pupils bilaterally equal and reactive Chest: Normal vesicular breath sounds, no added sounds, equal good air entry bilaterally CVS: S1-S2 regular, no murmurs, no tachycardia, no gallops, no rubs Abdomen: Soft, nontender, no organomegaly, bowel sounds present Neuro: No focal deficits, no facial deformity, AO x3, power 5/5 in all limbs Discharge Data Data Completed and Pending: Completed Studies During Hospitalization Category Date Time Status XR chest 1V [place] [id number] Urgent Exams 01/17/21 13:03 Completed Pending at discharge Category Date Time Status SQUEEGEER AND FORMER request for service Routin e Exams 01/18/21 Ordered CV. echo complete * [id number] Routine Ultrasound 01/18/21 18:48 Taken Labs from last 24 hours 01/18/21 01/18/21 01/18/21 08:03 08:03 08:03 WBC 10.1 H RBC 5.25 Hgb 15.1 Hct 46.3 MCV 88.2 MCH 28.8 MCHC 32.6 RDW 13.0 Plt Count 340 MPV 9.9 Neut % (Auto) 63.6 Lymph % (Auto) 26.7 [place] % (Auto) 8.3 Eos % (Auto) 0.6 Baso % (Auto) 0.5 Neut # (Auto) 6.45 Lymph # (Auto) 2.7 [place] # (Auto) 0.8 Eos # (Auto) 0.1 Baso # (Auto) 0.1 Nucleated RBC % (a uto) 0 Nucleated RBCs # 0.0 D-Dimer Sodium 137 Potassium 3.4 L Chloride 99 Carbon Dioxide 28 Anion Gap 13.4 BUN 8 Creatinine 0.6 L GFR Calculation 138.4 H Glucose 119 H Estimat Average Gl ucose Hemoglobin A1c Calculated Osmolal ity 283 L Calcium 8.6 Iron TIBC % Saturation Unsat Iron Binding Total Bilirubin 0.9 AST 16 ALT 18 Alkaline Phosphata se 130 Troponin T Baselin e Troponin T 120 Min [place] Delta Troponin T Troponin T Hi Sens 6Hr Troponin T Hi Sens 6Hr Delta NT-Pro-B Natriuret Pep Total Protein 5.8 L Albumin 3.7 Globulin 2.1 Triglycerides 196 H Cholesterol 144 LDL Cholesterol, C alc 81 Total VLDL Cholest shaista 39 H HDL Cholesterol 24 L Cholesterol/HDL Ra emma 6.00 H Procalcitonin TSH Urine Opiates Scre en Ur Barbiturates Sc reen Ur Phencyclidine S crn Ur Amphetamines Sc reen U Benzodiazepines Scrn Urine Cocaine Scre en U Marijuana (THC) Screen SARS-CoV-2 Ag (Rap id) 01/18/21 01/18/21 01/17/21 08:03 00:50 22:00 WBC RBC Hgb Hct MCV MCH MCHC RDW Plt Count MPV Neut % (Auto) Lymph % (Auto) [place] % (Auto) Eos % (Auto) Baso % (Auto) Neut # (Auto) Lymph # (Auto) [place] # (Auto) Eos # (Auto) Baso # (Auto) Nucleated RBC % (a uto) Nucleated RBCs # D-Dimer Sodium Potassium Chloride Carbon Dioxide Anion Gap BUN Creatinine GFR Calculation Glucose Estimat Average Gl ucose 134 Hemoglobin A1c 6.3 H Calculated Osmolal ity Calcium Iron TIBC % Saturation Unsat Iron Binding Total Bilirubin AST ALT Alkaline Phosphata se Troponin T Baselin e Troponin T 120 Min [place] Delta Troponin T Troponin T Hi Sens 6Hr Troponin T Hi Sens 6Hr Delta NT-Pro-B Natriuret Pep Total Protein Albumin Globulin Triglycerides Cholesterol LDL Cholesterol, C alc Total VLDL Cholest shaista HDL Cholesterol Cholesterol/HDL Ra emma Procalcitonin TSH Urine Opiates Scre en Positive H Ur Barbiturates Sc reen Negative Ur Phencyclidine S crn Negative Ur Amphetamines Sc reen Negative U Benzodiazepines Scrn Negative Urine Cocaine Scre en Negative U Marijuana (THC) Screen Negative SARS-CoV-2 Ag (Rap id) Negative 01/17/21 01/17/21 01/17/21 19:56 19:56 16:03 WBC RBC Hgb Hct MCV MCH MCHC RDW Plt Count MPV Neut % (Auto) Lymph % (Auto) [place] % (Auto) Eos % (Auto) Baso % (Auto) Neut # (Auto) Lymph # (Auto) [place] # (Auto) Eos # (Auto) Baso # (Auto) Nucleated RBC % (a uto) Nucleated RBCs # D-Dimer 0.54 Sodium Potassium Chloride Carbon Dioxide Anion Gap BUN Creatinine GFR Calculation Glucose Estimat Average Gl ucose Hemoglobin A1c Calculated Osmolal ity Calcium Iron TIBC % Saturation Unsat Iron Binding Total Bilirubin AST ALT Alkaline Phosphata se Troponin T Baselin e Troponin T 120 Min [place] 10.85 Delta Troponin T -1.15 L Troponin T Hi Sens 6Hr 10.90 Troponin T Hi Sens 6Hr Delta -1.10 L NT-Pro-B Natriuret Pep Total Protein Albumin Globulin Triglycerides Cholesterol LDL Cholesterol, C alc Total VLDL Cholest shaista HDL Cholesterol Cholesterol/HDL Ra emma Procalcitonin TSH Urine Opiates Scre en Ur Barbiturates Sc reen Ur Phencyclidine S crn Ur Amphetamines Sc reen U Benzodiazepines Scrn Urine Cocaine Scre en U Marijuana (THC) Screen SARS-CoV-2 Ag (Rap id) 01/17/21 01/17/21 01/17/21 14:30 14:30 14:30 WBC RBC Hgb Hct MCV MCH MCHC RDW Plt Count MPV Neut % (Auto) Lymph % (Auto) [place] % (Auto) Eos % (Auto) Baso % (Auto) Neut # (Auto) Lymph # (Auto) [place] # (Auto) Eos # (Auto) Baso # (Auto) Nucleated RBC % (a uto) Nucleated RBCs # D-Dimer Sodium Potassium Chloride Carbon Dioxide Anion Gap BUN Creatinine GFR Calculation Glucose Estimat Average Gl ucose Hemoglobin A1c Calculated Osmolal ity Calcium Iron 57 L TIBC 235 % Saturation 24.2 Unsat Iron Binding 178 Total Bilirubin AST ALT Alkaline Phosphata se Troponin T Baselin e 12 Troponin T 120 Min [place] Delta Troponin T Troponin T Hi Sens 6Hr Troponin T Hi Sens 6Hr Delta NT-Pro-B Natriuret Pep 66 Total Protein Albumin Globulin Triglycerides Cholesterol LDL Cholesterol, C alc Total VLDL Cholest shaista HDL Cholesterol Cholesterol/HDL Ra emma Procalcitonin 0.04 TSH 0.79 Urine Opiates Scre en Ur Barbiturates Sc reen Ur Phencyclidine S crn Ur Amphetamines Sc reen U Benzodiazepines Scrn Urine Cocaine Scre en U Marijuana (THC) Screen SARS-CoV-2 Ag (Rap id) 01/17/21 01/17/21 14:30 14:30 WBC 8.9 RBC 5.50 H Hgb 16.1 Hct 49.4 MCV 89.8 MCH 29.3 MCHC 32.6 RDW 13.1 Plt Count 343 MPV 10.3 Neut % (Auto) 65.8 Lymph % (Auto) 23.7 [place] % (Auto) 8.7 Eos % (Auto) 1.1 Baso % (Auto) 0.4 Neut # (Auto) 5.87 Lymph # (Auto) 2.1 [place] # (Auto) 0.8 Eos # (Auto) 0.1 Baso # (Auto) 0.0 Nucleated RBC % (a uto) 0 Nucleated RBCs # 0.0 D-Dimer Sodium 142 Potassium 3.6 Chloride 103 Carbon Dioxide 29 Anion Gap 13.6 BUN 6 Creatinine 0.7 GFR Calculation 115.8 Glucose 138 H Estimat Average Gl ucose Hemoglobin A1c Calculated Osmolal ity 294 Calcium 8.7 Iron TIBC % Saturation Unsat Iron Binding Total Bilirubin 0.6 AST 15 ALT 18 Alkaline Phosphata se 149 H Troponin T Baselin e Troponin T 120 Min [place] Troponin T Troponin T Hi Sens 6Hr Troponin T Hi Sens 6Hr Delta NT-Pro-B Natriuret Pep Total Protein 6.1 L Albumin 3.9 Globulin 2.2 Triglycerides Cholesterol LDL Cholesterol, C alc Total VLDL Cholest shaista HDL Cholesterol Cholesterol/HDL Ra emma Procalcitonin TSH Urine Opiates Scre en Ur Barbiturates Sc reen Ur Phencyclidine S crn Ur Amphetamines Sc reen U Benzodiazepines Scrn Urine Cocaine Scre en U Marijuana (THC) Screen SARS-CoV-2 Ag (Rap id) Addt'l Data from Hospital Stay: Laboratory Results WBC 10.1 10^3/uL (4.0 -10.0) H 01/18/21 08:03 RBC 5.25 10^6/uL (4.1 -5.3) 01/18/21 08:03 Hgb 15.1 g/dL (11.7-1 6.6) 01/18/21 08:03 Hct 46.3 % (42.0-52.0 ) 01/18/21 08:03 MCV 88.2 fL (80-94) 01/18/21 08:03 MCH 28.8 pg (28.0-34. 0) 01/18/21 08:03 MCHC 32.6 g/dL (30.0-3 6.0) 01/18/21 08:03 RDW 13.0 % (12.1-15.1 ) 01/18/21 08:03 Plt Count 340 10^3/cmm (130 -400) 01/18/21 08:03 MPV 9.9 fL (7.4-10.4) 01/18/21 08:03 Neut % (Auto) 63.6 % 01/18/21 08:03 Lymph % (Auto) 26.7 % 01/18/21 08:03 [place] % (Auto) 8.3 % 01/18/21 08:03 Eos % (Auto) 0.6 % 01/18/21 08:03 Baso % (Auto) 0.5 % 01/18/21 08:03 Neut # (Auto) 6.45 10^3/uL (1.8 -7.7) 01/18/21 08:03 Lymph # (Auto) 2.7 10^3/uL (0.8- 4.8) 01/18/21 08:03 [place] # (Auto) 0.8 10^3/uL (0.2- 0.9) 01/18/21 08:03 Eos # (Auto) 0.1 10^3/uL (0.0- 0.8) 01/18/21 08:03 Baso # (Auto) 0.1 10^3/uL (0.0- 0.1) 01/18/21 08:03 Nucleated RBC % (a uto) 0 % 01/18/21 08:03 Nucleated RBCs # 0.0 /100WBC 01/18/21 08:03 D-Dimer 0.54 ug/mIFEU (0- 0.59) 01/17/21 19:56 Sodium 137 mmol/L (136-1 45) 01/18/21 08:03 Potassium 3.4 mmol/L (3.5-5 .1) L 01/18/21 08:03 Chloride 99 mmol/L (98-107 ) 01/18/21 08:03 Carbon Dioxide 28 mmol/L (22-29) 01/18/21 08:03 Anion Gap 13.4 (5-19) 01/18/21 08:03 BUN 8 mg/dL (6-20) 01/18/21 08:03 Creatinine 0.6 mg/dL (0.7-1. 2) L 01/18/21 08:03 GFR Calculation 138.4 mL/min (90- 130) H 01/18/21 08:03 Glucose 119 mg/dL (65-115 ) H 01/18/21 08:03 Estimat Average Gl ucose 134 01/18/21 08:03 Hemoglobin A1c 6.3 % (4.0-6.0) H 01/18/21 08:03 Calculated Osmolal ity 283 mOsm/kg (285- 295) L 01/18/21 08:03 Calcium 8.6 mg/dL (8.5-10 .5) 01/18/21 08:03 Iron 57 ug/dL (59-158) L 01/17/21 14:30 TIBC 235 mcg/dl 01/17/21 14:30 % Saturation 24.2 % (20-50) 01/17/21 14:30 Unsat Iron Binding 178 ug/dL (112-34 7) 01/17/21 14:30 Total Bilirubin 0.9 mg/dL (0.15-1 .2) 01/18/21 08:03 AST 16 U/L (0-40) 01/18/21 08:03 ALT 18 U/L (0-41) 01/18/21 08:03 Alkaline Phosphata se 130 IU/L (40-130) 01/18/21 08:03 Troponin T Baselin e 12 ng/L (0-15) 01/17/21 14:30 Troponin T 120 Min [place] 10.85 ng/L (0-15) 01/17/21 16:03 Delta Troponin T -1.15 ABS# (0-10) L 01/17/21 16:03 Troponin T Hi Sens 6Hr 10.90 ng/L (0-15) 01/17/21 19:56 Troponin T Hi Sens 6Hr Delta -1.10 ng/L (0-12) L 01/17/21 19:56 NT-Pro-B Natriuret Pep 66 pg/mL (0-125) 01/17/21 14:30 Total Protein 5.8 g/dL (6.6-8.7 ) L 01/18/21 08:03 Albumin 3.7 g/dL (3.5-5.2 ) 01/18/21 08:03 Globulin 2.1 g/dL (1.3-4.6 ) 01/18/21 08:03 Triglycerides 196 mg/dL (0-150) H 01/18/21 08:03 Cholesterol 144 mg/dL (0-200) 01/18/21 08:03 LDL Cholesterol, C alc 81 mg/dL (50-129) 01/18/21 08:03 Total VLDL Cholest shaista 39 mg/dL (0-30) H 01/18/21 08:03 HDL Cholesterol 24 mg/dL (60-100) L 01/18/21 08:03 Cholesterol/HDL Ra emma 6.00 mg/dL (1.0-5 .00) H 01/18/21 08:03 Procalcitonin 0.04 ng/mL (0-0.5 ) 01/17/21 14:30 TSH 0.79 uIU/mL (0.27 -4.20) 01/17/21 14:30 Urine Opiates Scre en Positive ng/mL (N egative) H 01/18/21 00:50 Ur Barbiturates Sc reen Negative ng/mL (N egative) 01/18/21 00:50 Ur Phencyclidine S crn Negative ng/mL (N egative) 01/18/21 00:50 Ur Amphetamines Sc reen Negative ng/mL (N egative) 01/18/21 00:50 U Benzodiazepines Scrn Negative ng/mL (N egative) 01/18/21 00:50 Urine Cocaine Scre en Negative ng/mL (N egative) 01/18/21 00:50 U Marijuana (THC) Screen Negative ng/mL (N egative) 01/18/21 00:50 SARS-CoV-2 Ag (Rap id) Negative (Negati ve) 01/17/21 22:00 Impressions Chest X-Ray 01/17/21 13:03 IMPRESSION: The cardiac silhouette appears slightly more prominent than on the prior study; this may reflect differences in pulmonary inflation/positioning. Vitals: Last Vital Signs Temp 97.9 F 01/18/21 12:00 Pulse 84 01/18/21 12:00 Resp 22 H 01/18/21 12:00 BP 134/83 01/18/21 12:00 Pulse Ox 94 01/18/21 12:00 Discharge Plan Discharge Patient Disposition: Home Condition: Stable Prescriptions: New isosorbide mononitrate 30 mg tablet extended release 24 hr 30 mg PO DAILY Qty: 30 RF: 5 Protonix 40 mg tablet,delayed release (DR/EC) 40 mg PO DAILY Qty: 30 RF: 3 nitroglycerin 0.4 mg tablet, sublingual 0.4 mg sublingual Q5M PRN (Reason: chest pain) Qty: 30 RF: 3 Continued aspirin [Adult Aspirin Regimen] 81 mg tablet,delayed release (DR/EC) 81 mg PO QAM RF: 0 budesonide-formoterol [Symbicort] 80-4.5 mcg/actuation HFA aerosol inhaler 2 puff INHALATION Q12H 30 Days Qty: 10.2 RF: 3 Spiriva Respimat 1.25 mcg/actuation mist 2 puff inhalation DAILY 30 Days Qty: 4 RF: 4 atorvastatin 40 mg tablet 40 mg PO BEDTIME RF: 0 allopurinol 300 mg tablet 300 mg PO QAM RF: 0 hydrochlorothiazide 25 mg tablet 25 mg PO DAILY RF: 0 benazepril 20 mg tablet 20 mg PO DAILY RF: 0 (DME) Fast Form Cock up Splint See Rx Instructions .ROUTE .MEDSUPPLY Qty: 1 RF: 0 albuterol sulfate 90 mcg/actuation HFA aerosol inhaler 2 inh INHALATION Q6H PRN (Reason: shortness of breath or wheezing) Qty: 6.7 RF: 0 metoprolol tartrate 100 mg Tablet 100 mg PO BID RF: 0 amlodipine 10 mg tablet 10 mg PO QAM RF: 0 loratadine 10 mg tablet 10 mg PO DAILY RF: 0 azelastine 137 mcg (0.1 %) aerosol,spray 2 spray INTRANASAL BID PRN (Reason: UNKNOWN) RF: 0 ipratropium bromide 42 mcg (0.06 %) spray,non-aerosol 2 spray intranasal QID PRN (Reason: UNKNOWN) RF: 0 Flonase Allergy Relief 50 mcg/actuation spray,suspension 2 spray INTRANASAL BID PRN (Reason: Allergy Symptoms) RF: 0 Changed metformin 500 mg tablet 500 mg PO BID Qty: 0 RF: 0 Discontinued omeprazole 20 mg capsule,delayed release(DR/EC) 20 mg PO DAILY RF: 0 Discharge Orders: Discharge Order (Routine); Ordered 01/18/21 Ordered By: Andrzej Ng Referrals: Andrzej Ng MD [Physician] - 3 months Letty Berkowitz FNP [Nurse Practitioner] - 7-10 days Emma Uribe DO [Primary Care Provider] - 4-7 days Discharge Diet: Cardiac, Low Salt and Low Cholesterol Discharge Activity: Increase activity as tolerated Patient Instructions: Left Heart Catheterization (DC), Opioid Safety Activity Restrictions/Additional Instructions: Follow-up with Letty Berkowitz cardiology nurse practitioner in 7 to 10 days. Follow-up with Dr. Ng in 2 to 3 months. The dose of Metformin has been increased to 500 mg twice daily. Isosorbide has been added to your medication list. Discharge Attestations Time Spent in Discharge Care*: greater than 30 min Specific Discharge Activities: educating patient, educating and/or supporting family/caregiver, discussing with pcp/other providers, discussing with counseling case manager/social workers/dc planners, documenting/other paperwork and evaluating patient/reviewing data Status at Discharge: Cognitive status at discharge: cognitively intact , Behavioral status at discharge: cooperative , Functional status at discharge: independent ambulation Overall status at discharge: patient is back to baseline Quality Metrics Clinical Quality Measures During this hospital stay, did patient experience: None Coding Level of Care Code Acute Chg FW DC note Diagnoses Chest pain R07.2 Chest pain type: precordial pain Hypertension I10 Hypertension type: essential hypertension Hypercholesteremia E78.00 Needs smoking cessation education F17.200
--- NOTE | 2021-01-18 13:23 | PM.DCS ---
Discharge Providers Date of Admission: 01/17/21 18:26 Date of Discharge: January 18, 2021 Attending Provider at Admission: Twan Baxter MD Attending Provider at Discharge: Twan Baxter MD Primary Care Provider: Emma Uribe DO Diagnoses at Discharge Discharge Diagnosis (1) Chest pain: Status: Acute Qualifiers: Chest pain type: precordial pain Qualified Code(s): R07.2 - Precordial pain (2) Hypertension: Status: Acute Qualifiers: Hypertension type: essential hypertension Qualified Code(s): I10 - Essential (primary) hypertension (3) Hypercholesteremia: Status: Acute (4) Needs smoking cessation education: Status: Acute Reason for Visit Reason for Visit: chest pain Hospital Course Hospital Course Isiah Knowles is a 60 year old male with past medical history significant for hypertension, hyperlipidemia, obesity, smoking, + faily history for CAD presented with worsening of chest pain upon exertion and now at rest with shortness of breath for the past 3 to 4 days. When chest pain became more consistent he decided to come to the ER. Troponins negative, no acute ST-T changes. Given significant comorbidities and significant symptoms cardiology was consulted and he underwent left heart cath on January 18. Left heart cath showed mid LAD 50% eccentric stenosis which could also represent myocardial bridge due to his waxing and waning pattern. FFR was performed which turned out to be nonsignificant at 0.90. Patient is been discharged hemodynamically stable condition with advised to follow-up with his primary care provider within next 1 week, Letty Berkowitzcardiology [employer] OPERATOR in 7 to 10 days follow-up with Dr. Ng in 2 to 3 month Physical Exam Narrative: EXAM NARRATIVE: GENERAL: Patient is alert, awake and oriented x3. NECK: No jugular vein distension. HEENT: No cyanosis. No icterus. No pallor. HEART: Regular S1 and S2. No murmur, rub or gallop. LUNGS: Clear to auscultate bilaterally. ABDOMEN: Soft, nontender and nondistended. Positive bowel sounds. No guarding, rebound or tenderness. CENTRAL NERVOUS SYSTEM: Grossly nonfocal. EXTREMITIES: Lower extremities without edema bilaterally. Tattoos on the arms and legs Const: COMMON NORMALS: alert Resp: COMMON NORMALS: clear to auscultation bilaterally AUSCULTATION: clear to auscultation bilaterally Neuro: SENSORIUM/ORIENTATION: Yes alert Discharge Data Data Completed and Pending: Completed Studies During Hospitalization Category Date Time Status XR chest 1V [place] [id number] Urgent Exams 01/17/21 13:03 Completed Pending at discharge Category Date Time Status RESTROOMS OR LOUNGES MAID request for service Routin e Exams 01/18/21 Ordered CV. echo complete * [id number] Routine Ultrasound 01/18/21 18:48 Taken Labs from last 24 hours 01/18/21 01/18/21 01/18/21 08:03 08:03 08:03 WBC 10.1 H RBC 5.25 Hgb 15.1 Hct 46.3 MCV 88.2 MCH 28.8 MCHC 32.6 RDW 13.0 Plt Count 340 MPV 9.9 Neut % (Auto) 63.6 Lymph % (Auto) 26.7 [place] % (Auto) 8.3 Eos % (Auto) 0.6 Baso % (Auto) 0.5 Neut # (Auto) 6.45 Lymph # (Auto) 2.7 [place] # (Auto) 0.8 Eos # (Auto) 0.1 Baso # (Auto) 0.1 Nucleated RBC % (a uto) 0 Nucleated RBCs # 0.0 D-Dimer Sodium 137 Potassium 3.4 L Chloride 99 Carbon Dioxide 28 Anion Gap 13.4 BUN 8 Creatinine 0.6 L GFR Calculation 138.4 H Glucose 119 H Estimat Average Gl ucose Hemoglobin A1c Calculated Osmolal ity 283 L Calcium 8.6 Iron TIBC % Saturation Unsat Iron Binding Total Bilirubin 0.9 AST 16 ALT 18 Alkaline Phosphata se 130 Troponin T Baselin e Troponin T 120 Min [place] Delta Troponin T Troponin T Hi Sens 6Hr Troponin T Hi Sens 6Hr Delta NT-Pro-B Natriuret Pep Total Protein 5.8 L Albumin 3.7 Globulin 2.1 Triglycerides 196 H Cholesterol 144 LDL Cholesterol, C alc 81 Total VLDL Cholest shaista 39 H HDL Cholesterol 24 L Cholesterol/HDL Ra emma 6.00 H Procalcitonin TSH Urine Opiates Scre en Ur Barbiturates Sc reen Ur Phencyclidine S crn Ur Amphetamines Sc reen U Benzodiazepines Scrn Urine Cocaine Scre en U Marijuana (THC) Screen SARS-CoV-2 Ag (Rap id) 01/18/21 01/18/21 01/17/21 08:03 00:50 22:00 WBC RBC Hgb Hct MCV MCH MCHC RDW Plt Count MPV Neut % (Auto) Lymph % (Auto) [place] % (Auto) Eos % (Auto) Baso % (Auto) Neut # (Auto) Lymph # (Auto) [place] # (Auto) Eos # (Auto) Baso # (Auto) Nucleated RBC % (a uto) Nucleated RBCs # D-Dimer Sodium Potassium Chloride Carbon Dioxide Anion Gap BUN Creatinine GFR Calculation Glucose Estimat Average Gl ucose 134 Hemoglobin A1c 6.3 H Calculated Osmolal ity Calcium Iron TIBC % Saturation Unsat Iron Binding Total Bilirubin AST ALT Alkaline Phosphata se Troponin T Baselin e Troponin T 120 Min [place] Delta Troponin T Troponin T Hi Sens 6Hr Troponin T Hi Sens 6Hr Delta NT-Pro-B Natriuret Pep Total Protein Albumin Globulin Triglycerides Cholesterol LDL Cholesterol, C alc Total VLDL Cholest shaista HDL Cholesterol Cholesterol/HDL Ra emma Procalcitonin TSH Urine Opiates Scre en Positive H Ur Barbiturates Sc reen Negative Ur Phencyclidine S crn Negative Ur Amphetamines Sc reen Negative U Benzodiazepines Scrn Negative Urine Cocaine Scre en Negative U Marijuana (THC) Screen Negative SARS-CoV-2 Ag (Rap id) Negative 01/17/21 01/17/21 01/17/21 19:56 19:56 16:03 WBC RBC Hgb Hct MCV MCH MCHC RDW Plt Count MPV Neut % (Auto) Lymph % (Auto) [place] % (Auto) Eos % (Auto) Baso % (Auto) Neut # (Auto) Lymph # (Auto) [place] # (Auto) Eos # (Auto) Baso # (Auto) Nucleated RBC % (a uto) Nucleated RBCs # D-Dimer 0.54 Sodium Potassium Chloride Carbon Dioxide Anion Gap BUN Creatinine GFR Calculation Glucose Estimat Average Gl ucose Hemoglobin A1c Calculated Osmolal ity Calcium Iron TIBC % Saturation Unsat Iron Binding Total Bilirubin AST ALT Alkaline Phosphata se Troponin T Baselin e Troponin T 120 Min [place] 10.85 Delta Troponin T -1.15 L Troponin T Hi Sens 6Hr 10.90 Troponin T Hi Sens 6Hr Delta -1.10 L NT-Pro-B Natriuret Pep Total Protein Albumin Globulin Triglycerides Cholesterol LDL Cholesterol, C alc Total VLDL Cholest shaista HDL Cholesterol Cholesterol/HDL Ra emma Procalcitonin TSH Urine Opiates Scre en Ur Barbiturates Sc reen Ur Phencyclidine S crn Ur Amphetamines Sc reen U Benzodiazepines Scrn Urine Cocaine Scre en U Marijuana (THC) Screen SARS-CoV-2 Ag (Rap id) 01/17/21 01/17/21 01/17/21 14:30 14:30 14:30 WBC RBC Hgb Hct MCV MCH MCHC RDW Plt Count MPV Neut % (Auto) Lymph % (Auto) [place] % (Auto) Eos % (Auto) Baso % (Auto) Neut # (Auto) Lymph # (Auto) [place] # (Auto) Eos # (Auto) Baso # (Auto) Nucleated RBC % (a uto) Nucleated RBCs # D-Dimer Sodium Potassium Chloride Carbon Dioxide Anion Gap BUN Creatinine GFR Calculation Glucose Estimat Average Gl ucose Hemoglobin A1c Calculated Osmolal ity Calcium Iron 57 L TIBC 235 % Saturation 24.2 Unsat Iron Binding 178 Total Bilirubin AST ALT Alkaline Phosphata se Troponin T Baselin e 12 Troponin T 120 Min [place] Delta Troponin T Troponin T Hi Sens 6Hr Troponin T Hi Sens 6Hr Delta NT-Pro-B Natriuret Pep 66 Total Protein Albumin Globulin Triglycerides Cholesterol LDL Cholesterol, C alc Total VLDL Cholest shaista HDL Cholesterol Cholesterol/HDL Ra emma Procalcitonin 0.04 TSH 0.79 Urine Opiates Scre en Ur Barbiturates Sc reen Ur Phencyclidine S crn Ur Amphetamines Sc reen U Benzodiazepines Scrn Urine Cocaine Scre en U Marijuana (THC) Screen SARS-CoV-2 Ag (Rap id) 01/17/21 01/17/21 14:30 14:30 WBC 8.9 RBC 5.50 H Hgb 16.1 Hct 49.4 MCV 89.8 MCH 29.3 MCHC 32.6 RDW 13.1 Plt Count 343 MPV 10.3 Neut % (Auto) 65.8 Lymph % (Auto) 23.7 [place] % (Auto) 8.7 Eos % (Auto) 1.1 Baso % (Auto) 0.4 Neut # (Auto) 5.87 Lymph # (Auto) 2.1 [place] # (Auto) 0.8 Eos # (Auto) 0.1 Baso # (Auto) 0.0 Nucleated RBC % (a uto) 0 Nucleated RBCs # 0.0 D-Dimer Sodium 142 Potassium 3.6 Chloride 103 Carbon Dioxide 29 Anion Gap 13.6 BUN 6 Creatinine 0.7 GFR Calculation 115.8 Glucose 138 H Estimat Average Gl ucose Hemoglobin A1c Calculated Osmolal ity 294 Calcium 8.7 Iron TIBC % Saturation Unsat Iron Binding Total Bilirubin 0.6 AST 15 ALT 18 Alkaline Phosphata se 149 H Troponin T Baselin e Troponin T 120 Min [place] Delta Troponin T Troponin T Hi Sens 6Hr Troponin T Hi Sens 6Hr Delta NT-Pro-B Natriuret Pep Total Protein 6.1 L Albumin 3.9 Globulin 2.2 Triglycerides Cholesterol LDL Cholesterol, C alc Total VLDL Cholest shaista HDL Cholesterol Cholesterol/HDL Ra emma Procalcitonin TSH Urine Opiates Scre en Ur Barbiturates Sc reen Ur Phencyclidine S crn Ur Amphetamines Sc reen U Benzodiazepines Scrn Urine Cocaine Scre en U Marijuana (THC) Screen SARS-CoV-2 Ag (Rap id) Vitals: Last Vital Signs Temp 97.9 F 01/18/21 12:00 Pulse 84 01/18/21 12:00 Resp 22 H 01/18/21 12:00 BP 134/83 01/18/21 12:00 Pulse Ox 94 01/18/21 12:00 Discharge Plan Discharge Patient Disposition: Home Condition: Stable Prescriptions: New isosorbide mononitrate 30 mg tablet extended release 24 hr 30 mg PO DAILY Qty: 30 RF: 5 Protonix 40 mg tablet,delayed release (DR/EC) 40 mg PO DAILY Qty: 30 RF: 3 nitroglycerin 0.4 mg tablet, sublingual 0.4 mg sublingual Q5M PRN (Reason: chest pain) Qty: 30 RF: 3 Continued aspirin [Adult Aspirin Regimen] 81 mg tablet,delayed release (DR/EC) 81 mg PO QAM RF: 0 budesonide-formoterol [Symbicort] 80-4.5 mcg/actuation HFA aerosol inhaler 2 puff INHALATION Q12H 30 Days Qty: 10.2 RF: 3 Spiriva Respimat 1.25 mcg/actuation mist 2 puff inhalation DAILY 30 Days Qty: 4 RF: 4 atorvastatin 40 mg tablet 40 mg PO BEDTIME RF: 0 allopurinol 300 mg tablet 300 mg PO QAM RF: 0 hydrochlorothiazide 25 mg tablet 25 mg PO DAILY RF: 0 benazepril 20 mg tablet 20 mg PO DAILY RF: 0 (DME) Fast Form Cock up Splint See Rx Instructions .ROUTE .MEDSUPPLY Qty: 1 RF: 0 albuterol sulfate 90 mcg/actuation HFA aerosol inhaler 2 inh INHALATION Q6H PRN (Reason: shortness of breath or wheezing) Qty: 6.7 RF: 0 metoprolol tartrate 100 mg Tablet 100 mg PO BID RF: 0 amlodipine 10 mg tablet 10 mg PO QAM RF: 0 loratadine 10 mg tablet 10 mg PO DAILY RF: 0 azelastine 137 mcg (0.1 %) aerosol,spray 2 spray INTRANASAL BID PRN (Reason: UNKNOWN) RF: 0 ipratropium bromide 42 mcg (0.06 %) spray,non-aerosol 2 spray intranasal QID PRN (Reason: UNKNOWN) RF: 0 Flonase Allergy Relief 50 mcg/actuation spray,suspension 2 spray INTRANASAL BID PRN (Reason: Allergy Symptoms) RF: 0 Changed metformin 500 mg tablet 500 mg PO BID Qty: 0 RF: 0 Discontinued omeprazole 20 mg capsule,delayed release(DR/EC) 20 mg PO DAILY RF: 0 Discharge Orders: Discharge Order (Routine); Ordered 01/18/21 Ordered By: Andrzej Ng Referrals: Andrzej Ng MD [Physician] - 3 months ([facility] will be calling to schedule a cardiology followup with Dr. Ng to be seen in 3 months. If you don't hear from them bt Tuesday, please give them at call. Thank you) Letty Berkowitz FNP [Nurse Practitioner] - 1 week ([facility] will be calling to schedule a post procedure followup with BELEM Ross to be seen in 1 week. If you don't hear from them bt Tuesday, please give them at call. Thank you) Emma Uribe DO [Primary Care Provider] - 4-7 days (Dr. Uribe's office will be calling to set up a hospital followup to be seen in 4 to 7 days. If you don't hear from them by Tuesday, please give them a call. Thank you) Discharge Diet: Cardiac, Low Salt and Low Cholesterol Discharge Activity: Increase activity as tolerated Patient Instructions: Nitroglycerin, Rapid Release (By mouth), Isosorbide Mononitrate (By mouth), Pantoprazole (By mouth), Left Heart Catheterization (DC), Opioid Safety Activity Restrictions/Additional Instructions: Follow-up with Letty Berkowitz cardiology nurse practitioner in 7 to 10 days. Follow-up with Dr. Ng in 2 to 3 months. The dose of Metformin has been increased to 500 mg twice daily. Isosorbide has been added to your medication list. Discharge Attestations Time Spent in Discharge Care*: greater than 30 min Quality Metrics Clinical Quality Measures During this hospital stay, did patient experience: None Coding Level of Care Code Acute Chg FW DC note Exam Expanded Problem Focused Diagnoses Chest pain R07.2 Chest pain type: precordial pain Hypertension I10 Hypertension type: essential hypertension Hypercholesteremia E78.00 Needs smoking cessation education F17.200
--- NOTE | 2021-01-18 18:48 | USCV_ITS ---
Isiah Knowles Age: 60 Gender: M : 1960 Exam Date: 01/18/2021 11:01 Ordering Phys: Twan Baxter MD Technologist: Exam Location: [facility] [place] Indication: CHEST PAIN BP: 123 / 78 HR: 82 Rhythm: Sinus Technical Quality: Fair MEASUREMENTS (Male / Female) Normal Values 2D ECHO LV Diastolic Diameter PLAX 5.2 cm 4.2 - 5.9 / 3.9 - 5.3 cm LV Systolic Diameter PLAX 3.3 cm IVS Diastolic Thickness 1.0 cm 0.6 - 1.0 / 0.6 - 0.9 cm IVS Systolic Thickness 1.4 cm LVPW Diastolic Thickness 1.0 cm 0.6 - 1.0 / 0.6 - 0.9 cm LVPW Systolic Thickness 1.5 cm LVOT Diameter 2.0 cm LV Ejection Fraction 2D Teich 64.5 % LV Ejection Fraction MOD 2C 63.1 % LV Ejection Fraction 2C AL 63.7 % LA Diameter 3.3 cm LA Width 4.4 cm LA Height 5.0 cm RA Width 4.4 cm RA Height 6.2 cm M-MODE MV E Point Septal Separation 0.8 cm DOPPLER AV Peak Velocity 115.0 cm/s LVOT Peak Velocity 87.0 cm/s AV Area Cont Eq vti 2.4 cm squared AV Area Cont Eq pk 2.4 cm squared MV Area PHT 5.0 cm squared Mitral E to A Ratio 0.6 MV E' Velocity 25.5 cm/s Mitral E to MV E' Ratio 6.2 Mitral E to LV E' Lateral Ratio 6.0 Mitral E to LV E' Septal Ratio 6.4 TR Peak Velocity 129.0 cm/s TR Peak Gradient 6.7 mmHg TV Peak E Velocity 92.0 cm/s Right Atrial Pressure 3.0 mmHg Pulmonary Artery Systolic Pressu 9.7 mmHg PV Peak Velocity 89.0 cm/s FINDINGS Left Ventricle Normal left ventricular cavity size. Moderate left ventricular hypertrophy of concentric type. Left ventricular ejection fraction is estimated at 60 %. Grade I/IV diastolic dysfunction (abnormal relaxation filling pattern), normal to mildly elevated filling pressures. Right Ventricle The right ventricle is normal in size and function. Right Atrium The right atrium is normal in size. Left Atrium The left atrium is normal in size. Mitral Valve Structurally normal mitral valve without significant stenosis or prolapse. There is no mitral regurgitation. Aortic Valve Moderate aortic valve calcification. Aortic valve sclerosis. No aortic valve stenosis. Tricuspid Valve Structurally normal tricuspid valve without significant stenosis or regurgitation. Pulmonary artery systolic pressure is normal. Pulmonic Valve Structurally normal pulmonic valve without significant stenosis. There is no pulmonic regurgitation. Pericardium Normal pericardium without effusion. Aorta Normal ascending aorta dimension. CONCLUSIONS 1-Normal left ventricular cavity size. Moderate left ventricular hypertrophy of concentric type. Left ventricular ejection fraction is estimated at 60 %. Grade I/IV diastolic dysfunction (abnormal relaxation filling pattern), normal to mildly elevated filling pressures. 2-There is no pericardial effusion. 3-No significant valve abnormalities. 4-Pulmonary artery systolic pressure is within normal limits. Andrzej Ng MD (Electronically Signed) Final Date: 18 January 2021 18:57 S
--- NOTE | 2021-01-21 14:06 | PC.RESP ---
Smoking Cessation information sent to patient and class offered for free.
== END 2021-01-18 15:20 | disposition home or self-care (01) ==
LOC: ER 15:14 → CSU 19:47
PROVIDERS: Internal Medicine Cardiovascular Disease; Physician Assistant; Student in an Organized Health Care Education/Training Program; Admitting Provider Student in an Organized Health Care Education/Training Program; Emergency Provider Family Medicine; PCP Family Medicine; Visit Provider Student in an Organized Health Care Education/Training Program
DX: R07.2 Precordial pain (principal); I10 Essential (primary) hypertension; E78.00 Pure hypercholesterolemia, unspecified; F17.210 Nicotine dependence, cigarettes, uncomplicated; E78.5 Hyperlipidemia, unspecified; E66.9 Obesity, unspecified; Z68.34 Body mass index [BMI] 34.0-34.9, adult; Z82.49 Family history of ischemic heart disease and other diseases of the circulatory system; E11.9 Type 2 diabetes mellitus without complications
CPT/HCPCS: 36415; 71045; 80053; 80061; 80306; 83036; 83540; 83550; 83880; 84145; 84443; 84484; 85025; 85378; 87426; 93005; 93306; 93452; 93571; 94664; 96361; 96372; 96374; 99285; C1769; C1887; C1894; G0378; J0153; J1644; J1650; J2250; J2270; J3010; J3490; J7030; Q9967

== ENCOUNTER → 2021-01-26 12:30 | Outpatient (BNVA) | payer MEDICARE, MEDICAID, SELFPAY | PROVIDERS: PCP Family Medicine; Visit Provider Nurse Practitioner Family | DX: I25.119 Atherosclerotic heart disease of native coronary artery with unspecified angina pectoris (principal); Z09 Encounter for follow-up examination after completed treatment for conditions other than malignant neoplasm | CPT/HCPCS: 80048 ==

== ENCOUNTER 2021-06-25 21:18 | Emergency (ER) | payer MEDICARE, MEDICAID, SELFPAY ==
--- NOTE | 2021-06-25 21:23 | ECG_ITS ---
[facility] Test Date: 2021-06-25 Pat Name: Isiah Knowles Department: Room: Gender: Male Rail Director: : 1960 Requested By: Mariah Simmons Order Number: [id number] Chun MD: Senait Hartman M.D. Measurements Intervals [place] Rate: 66 P: 61 [place]: 213 QRS: 44 QRSD: 119 T: 61 QT: 405 QTc: 427 Interpretive Statements SINUS RHYTHM WITH FIRST DEGREE AV BLOCK PROBABLE INFERIOR MYOCARDIAL INFARCTION , OF INDETERMINATE AGE [35 ms Q WAVE IN II/aVF] Compared to ECG 01/17/2021 15:11:06 No significant changes Electronically Signed On 06-26-2021 17:52:27 INVESTMENT DIRECTOR by Senait Hartman M.D. [email or web address] f
--- NOTE | 2021-06-25 21:23 | XRR_ITS ---
PROCEDURE INFORMATION: Exam: XR Chest Exam date and time: 06/25/2021 9:23 PM Age: 60 years old Clinical indication: Shortness of breath; Additional info: SOB TECHNIQUE: Imaging protocol: XR of the chest. Views: 1 view. COMPARISON: CR XR chest 1V portable [id number] 01/17/2021 1:54 PM FINDINGS: Lungs: Left mid lung calcified granuloma. Emphysematous changes. Pleural spaces: Unremarkable. No pleural effusion. No pneumothorax. Heart/Mediastinum: Unremarkable. No cardiomegaly. Bones/joints: Unremarkable. XR/XR chest 1V portable [id number] IMPRESSION: 1. Negative for infiltrate. 2. Emphysematous changes.
[2021-06-25 21:24] VITALS: BP 149/80; PULSE 76; RESP 20; TEMP 36.4; O2SAT 95; BMI 32.3
--- NOTE | 2021-06-25 21:58 | W.ED.SOB ---
HPI - SOB/Dyspnea General: Chief Complaint: Shortness of Breath/Dyspnea Stated Complaint: SOB Time Seen by Provider: 06/25/21 21:22 Source: patient Mode of arrival: ambulatory Limitations: no limitations History of Present Illness: HPI Narrative: 60-year-old male states over the last 5 to 6 days he has had a lot of nasal congestion sinus congestion and sinus pressure states he is also had some dyspnea. States he has a history of COPD was seen by his PCP started on steroids on antibiotics and he has not had any improvement. Denies any chest pain to me no cough no fever. He states that he just feels like he cannot get his nasal passages clear or get a good breath in. Associated symptoms: Deny abdominal pain, chest pain, fever(s), nausea or vomiting Review of Systems Const: Denies: fever(s), chills, body aches or change in appetite Eyes: Denies: blurry vision or eye discomfort ENMT: Denies: throat pain or dental pain Card: Denies: chest pain Resp: Reports: dyspnea GI: Denies: abdominal pain, nausea, vomiting or diarrhea : Denies: dysuria Musc: Denies: neck pain or back pain Skin/Breast: Denies: rash Neuro: Denies: headache(s) Psych: Denies: depression Jose/Lymph: Denies: easy bruising All/Imm: Denies: urticaria PFSH ED PFSH: Medical History Allergic rhinosinusitis Allergic rhinosinusitis Atherosclerosis of coronary artery Chronic bronchitis Chronic frontal sinusitis Chronic sinusitis Chronic vasomotor rhinitis Fracture of triquetrum of left wrist Hypercholesteremia Hypertension Nasal obstruction Nasal septal deformity Nasal turbinate hypertrophy Nicotine addiction Obstructive sleep apnea Type 2 diabetes mellitus Surgical History H/O sinus surgery History of sinus surgery Family History Brother , Age 51 Heart attack Social History Smoking risk assessment/counseling performed?: Yes Alcohol intake: current Alcohol intake frequency: holidays/special occasions only Lives independently: Yes Household members: significant other Marital status: Single Current occupational status: disabled History of recent travel: No Current gender identity: Male Physical Exam Const: COMMON NORMALS: no acute distress, patient oriented x3 and healthy appearing HENMT: COMMON NORMALS: normocephalic and atraumatic HEAD & SCALP: normocephalic and atraumatic Eye: COMMON NORMALS: Equal, round and reactive pupils present and EOMs intact bilaterally PUPIL: Yes Equal, round and reactive pupils present Neck/C-Spine: COMMON NORMALS: full ROM and supple Chest: COMMONS NORMALS: normal inspection of the chest and normal palpation of entire chest wall Resp: COMMON NORMALS: normal respiratory effort, No retractions, No use of accessory muscles and clear to auscultation bilaterally AUSCULTATION: clear to auscultation bilaterally Cardio: COMMON NORMALS: regular rate, regular rhythm and No murmurs present (Cardio) RATE: regular rate RHYTHM: regular rhythm GI: COMMON NORMALS: Normal to inspection, nondistended, normoactive bowel sounds present, Soft to palpation, non-tender and no masses PALPATION: Yes Soft to palpation Extremity: COMMON NORMALS: normal to inspection and full ROM Neuro: COMMON NORMALS: patient oriented x3, moves all extremities and no focal motor deficits Psych: COMMON NORMALS: mental status grossly normal, Normal thought process present and cooperative THOUGHT PROCESS: Normal thought process present Skin: COMMON NORMALS: no rashes or lesions noted and no wounds GENERAL SKIN EXAM: no rashes or lesions noted Course Vital Signs: Vital signs: Vital Signs Temperature 97.6 F 06/25/21 21:24 Pulse Rate 92 06/25/21 22:49 Respiratory Rate 18 06/25/21 22:49 Blood Pressure 138/88 06/25/21 22:49 Pulse Oximetry 96 06/25/21 22:49 MDM - SOB/Dyspnea MDM Narrative: Medical decision making narrative: Patient presents here with likely COPD exacerbation with likely viral syndrome and a sinusitis. He is already on antibiotics and steroids and albuterol. He has been well-appearing here no respiratory distress EKG is normal no signs of acute coronary syndrome or pulmonary embolism. He is stable for discharge is to follow-up with PCP and return if worsening. Lab Data: Labs: Lab Results 06/25/21 06/25/21 06/25/21 22:00 22:00 22:00 WBC 9.0 10^3/uL 10^3/ uL (4.0-10.0) RBC 5.68 10^6/uL H 10 ^6/uL (4.1-5.3) Hgb 16.1 g/dL g/dL (11.7-16.6) Hct 49.4 % % (42.0-52.0) MCV 87.0 fl fl (80-94) MCH 28.3 pg pg (28.0-34.0) MCHC 32.6 g/dL g/dL (30.0-36.0) RDW 13.5 % % (12.1-15.1) Plt Count 362 10^3/cmm 10^3 /cmm (130-400) MPV 9.8 fL fL (7.4-10.4) Neut % (Auto) 73.5 % % Lymph % (Auto) 19.0 % % [place] % (Auto) 6.9 % % Eos % (Auto) 0.1 % % Baso % (Auto) 0.3 % % Neut # (Auto) 6.57 10^3/uL 10^3 /uL (1.8-7.7) Lymph # (Auto) 1.7 10^3/uL 10^3/ uL (0.8-4.8) [place] # (Auto) 0.6 10^3/uL 10^3/ uL (0.2-0.9) Eos # (Auto) 0.0 10^3/uL 10^3/ uL (0.0-0.8) Baso # (Auto) 0.0 10^3/uL 10^3/ uL (0.0-0.1) Nucleated RBC % (a uto) 0 % % Nucleated RBCs # 0.0 /100WBC /100W BC Sodium 140 mmol/L mmol/L (136-145) Potassium 3.6 mmol/L mmol/L (3.5-5.1) Chloride 101 mmol/L mmol/L (98-107) Carbon Dioxide 26 mmol/L mmol/L (22-29) Anion Gap 16.6 (5-19) BUN 7 mg/dL mg/dL (6-20) Creatinine 0.7 mg/dL mg/dL (0.7-1.2) GFR Calculation 115.8 mL/min mL/m in (90-130) Glucose 152 mg/dL H mg/dL (65-115) Calculated Osmolal ity 291 mOsm/kg mOsm/ kg (285-295) Calcium 8.9 mg/dL mg/dL (8.5-10.5) Total Bilirubin 0.5 mg/dL mg/dL (0.15-1.2) AST 11 U/L U/L (0-40) ALT 13 U/L U/L (0-41) Alkaline Phosphata se 142 IU/L H IU/L (40-130) NT-Pro-B Natriuret Pep 97 pg/mL pg/mL (0-125) Total Protein 6.5 g/dL L g/dL (6.6-8.7) Albumin 4.1 g/dL g/dL (3.5-5.2) Globulin 2.4 g/dL g/dL (1.3-4.6) SARS-CoV-2 Ag (Rap id) Negative (Negative) Imaging Data^: CXR: Attestation: I personally reviewed and interpreted this imaging study as follows: My impression: no acute abnormaliy EKG Data^: EKG 1: Attestation: I personally reviewed and interpreted this EKG as follows: EKG Interpretation Date: 06/25/21 EKG interpretation time: 21:34 Interpretation: nsr hr [address] or t wave abnormalities qrs 119 qtc 419 Discharge Plan Discharge Patient Disposition: Home Clinical Impression: Dyspnea Qualifiers: Dyspnea type: unspecified Qualified Code(s): R06.00 - Dyspnea, unspecified Condition: Stable Prescriptions: No Action aspirin [Adult Aspirin Regimen] 81 mg tablet,delayed release (DR/EC) 81 mg PO QAM RF: 0 budesonide-formoterol [Symbicort] 80-4.5 mcg/actuation HFA aerosol inhaler 2 puff INHALATION Q12H 30 Days Qty: 10.2 RF: 3 Spiriva Respimat 1.25 mcg/actuation mist 2 puff inhalation DAILY 30 Days Qty: 4 RF: 4 atorvastatin 40 mg tablet 40 mg PO BEDTIME RF: 0 allopurinol 300 mg tablet 300 mg PO QAM RF: 0 hydrochlorothiazide 25 mg tablet 25 mg PO DAILY RF: 0 benazepril 20 mg tablet 20 mg PO DAILY RF: 0 (DME) Fast Form Cock up Splint See Rx Instructions .ROUTE .MEDSUPPLY Qty: 1 RF: 0 isosorbide mononitrate 30 mg tablet extended release 24 hr 30 mg PO BID Qty: 180 RF: 2 albuterol sulfate 90 mcg/actuation HFA aerosol inhaler 2 inh INHALATION Q6H PRN (Reason: shortness of breath or wheezing) Qty: 6.7 RF: 0 metoprolol tartrate 100 mg Tablet 100 mg PO BID RF: 0 amlodipine 10 mg tablet 10 mg PO QAM RF: 0 loratadine 10 mg tablet 10 mg PO DAILY RF: 0 azelastine 137 mcg (0.1 %) aerosol,spray 2 spray INTRANASAL BID PRN (Reason: UNKNOWN) RF: 0 ipratropium bromide 42 mcg (0.06 %) spray,non-aerosol 2 spray intranasal QID PRN (Reason: UNKNOWN) RF: 0 Flonase Allergy Relief 50 mcg/actuation spray,suspension 2 spray INTRANASAL BID PRN (Reason: Allergy Symptoms) RF: 0 Protonix 40 mg tablet,delayed release (DR/EC) 40 mg PO DAILY Qty: 30 RF: 3 nitroglycerin 0.4 mg tablet, sublingual 0.4 mg sublingual Q5M PRN (Reason: chest pain) Qty: 30 RF: 3 metformin 500 mg tablet 500 mg PO BID Qty: 0 RF: 0 Discharge Orders: Discharge ED (Routine); Ordered 06/25/21 Ordered By: Mariah Simmons Referrals: Emma Uribe DO [Primary Care Provider] - 1-3 days Discharge Diet: Advance as tolerated Discharge Activity: Resume usual activity Patient Instructions: Dyspnea (ED) Coding Level of Care Code ED Before School for Chg 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
[2021-06-25 22:19] LABS: Basophils % 0.3 %; Eosinophils % 0.1 %; Hematocrit 49.4 % (42.0-52.0); Hemoglobin 16.1 g/dL (11.7-16.6); Lymphocytes # 1.7 10^3/uL (0.8-4.8); Mean Corpuscular HGB Conc 32.6 g/dL (30.0-36.0); Mean Corpuscular Hemoglobin 28.3 pg (28.0-34.0); Mean Platelet Volume 9.8 fL (7.4-10.4); Monocytes # 0.6 10^3/uL (0.2-0.9); Monocytes % 6.9 %; Neutrophils # 6.57 10^3/uL (1.8-7.7); Neutrophils % 73.5 %; Nucleated Red Blood Cells % 0 %; Platelet Count 362 10^3/cmm (130-400); Red Blood Count 5.68 10^6/uL (4.1-5.3); Red Cell Distribution Width 13.5 % (12.1-15.1)
[2021-06-25 22:26] VITALS: O2SAT 97
[2021-06-25 22:49] VITALS: BP 138/88; PULSE 92; RESP 18; O2SAT 96
[2021-06-25 22:51] LABS: Alanine Aminotransferase 13 U/L (0-41); Albumin Level 4.1 g/dL (3.5-5.2); Alkaline Phosphatase 142 IU/L (40-130); Anion Gap 16.6 (5-19); Aspartate Amino Transferase 11 U/L (0-40); Blood Urea Nitrogen 7 mg/dL (6-20); Calcium 8.9 mg/dL (8.5-10.5); Carbon Dioxide 26 mmol/L (22-29); Chloride 101 mmol/L (98-107); Creatinine Clr Calc Pharmacy 137.6806; Globulin 2.4 g/dL (1.3-4.6); Glomerular Filtration Rate 115.8 mL/min (90-130); Glucose 152 mg/dL (65-115); NT Pro B Type Natriuretic Pept 97 pg/mL (0-125); Osmolality Calculated 291 mOsm/kg (285-295); Potassium 3.6 mmol/L (3.5-5.1); Sodium 140 mmol/L (136-145); Total Bilirubin 0.5 mg/dL (0.15-1.2); Total Protein 6.5 g/dL (6.6-8.7)
[2021-06-25 22:56] LABS: SARS Covid-2 Antigen Negative (Negative)
[2021-06-25 23:26] VITALS: BP 155/87; PULSE 89; RESP 18; O2SAT 97
[2021-06-25 23:29] VITALS: BP 155/87; PULSE 79; RESP 20; O2SAT 98
--- NOTE | 2021-06-25 23:48 | PC.NURSE ---
patient states that he will do a breathing treatment at home, declines to wait on RT for treatment. left ambulatory with stable gait.
== END 2021-06-25 23:49 | disposition home or self-care (01) ==
PROVIDERS: Emergency Provider Emergency Medicine; PCP Family Medicine
DX: R06.00 Dyspnea, unspecified (principal); Z79.82 Long term (current) use of aspirin; I25.10 Atherosclerotic heart disease of native coronary artery without angina pectoris; I10 Essential (primary) hypertension; E11.9 Type 2 diabetes mellitus without complications; Z20.822 Contact with and (suspected) exposure to COVID-19
CPT/HCPCS: 71045; 80053; 83880; 85025; 87426; 93005; 99283

== ENCOUNTER 2021-07-09 22:29 | Emergency (ER) | payer MEDICARE, MEDICAID, SELFPAY ==
[2021-07-09 22:40] VITALS: BP 130/78; PULSE 63; RESP 14; TEMP 37; O2SAT 98; BMI 32.3
--- NOTE | 2021-07-09 23:07 | XRR_ITS ---
PROCEDURE INFORMATION: Exam: XR Chest Exam date and time: 07/09/2021 11:07 PM Age: 60 years old Clinical indication: Shortness of breath; Patient HX: C/O worsening SOB. History of mi last March. TECHNIQUE: Imaging protocol: XR of the chest. Views: 1 view. COMPARISON: CR XR chest 1V portable [id number] 06/25/2021 9:53 PM FINDINGS: Lungs: There is a background of emphysema and mild pulmonary fibrosis. There is a stable partially calcified nodularity seen in the left mid hemithorax. Pleural spaces: Unremarkable. No pleural effusion. No pneumothorax. Heart/Mediastinum: Unremarkable. No cardiomegaly. Bones/joints: Unremarkable. XR/XR chest 1V portable [id number] IMPRESSION: Mild emphysematous changes and pulmonary fibrosis. Stable chest radiograph compared with 06/25/2021.
--- NOTE | 2021-07-09 23:07 | ECG_ITS ---
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 Measurements Intervals Almo Rate: 56 P: 27 VA: 224 QRS: 2 QRSD: 122 T: 46 QT: 427 QTc: 414 Interpretive Statements SINUS BRADYCARDIA WITH FIRST DEGREE AV BLOCK INFERIOR MYOCARDIAL INFARCTION , PROBABLY OLD [40+ ms Q WAVE AND/OR ST/T ABNORMALITY IN II/aVF] Compared to ECG 06/25/2021 21:34:26 Sinus rhythm no longer present Myocardial infarct finding still present Electronically Signed On 07-11-2021 14:04:52 FORGE PRESS OPERATOR by Senait Hartman M.D. [email or web address]
[2021-07-09 23:29] LABS: Basophils # 0.1 10^3/uL (0.0-0.1); Basophils % 0.5 %; Eosinophils # 0.1 10^3/uL (0.0-0.8); Eosinophils % 1.1 %; Hematocrit 46.8 % (42.0-52.0); Hemoglobin 15.6 g/dL (11.7-16.6); Lymphocytes % 31.4 %; Mean Corpuscular HGB Conc 33.3 g/dL (30.0-36.0); Mean Corpuscular Hemoglobin 28.6 pg (28.0-34.0); Mean Corpuscular Volume 85.9 fl (80-94); Mean Platelet Volume 9.6 fL (7.4-10.4); Monocytes # 0.8 10^3/uL (0.2-0.9); Monocytes % 8.3 %; Neutrophils # 5.53 10^3/uL (1.8-7.7); Neutrophils % 58.4 %; Nucleated Red Blood Cells % 0 %; Platelet Count 323 10^3/cmm (130-400); Red Blood Count 5.45 10^6/uL (4.1-5.3); Red Cell Distribution Width 13.5 % (12.1-15.1); White Blood Count 9.5 10^3/uL (4.0-10.0)
[2021-07-09 23:43] LABS: INR 0.93 (0.8-1.2)
[2021-07-09 23:51] LABS: Troponin(5th) Baseline 10 ng/L (0-15)
[2021-07-10 00:09] LABS: Alanine Aminotransferase 15 U/L (0-41); Albumin Level 3.8 g/dL (3.5-5.2); Alkaline Phosphatase 132 IU/L (40-130); Anion Gap 18.8 (5-19); Aspartate Amino Transferase 17 U/L (0-40); Blood Urea Nitrogen 8 mg/dL (6-20); Calcium 8.5 mg/dL (8.5-10.5); Carbon Dioxide 24 mmol/L (22-29); Chloride 99 mmol/L (98-107); Globulin 1.9 g/dL (1.3-4.6); Glomerular Filtration Rate 138.4 mL/min (90-130); Glucose 129 mg/dL (65-115); NT Pro B Type Natriuretic Pept 55 pg/mL (0-125); Osmolality Calculated 286 mOsm/kg (285-295); Potassium 3.8 mmol/L (3.5-5.1); Sodium 138 mmol/L (136-145); Total Bilirubin 0.4 mg/dL (0.15-1.2); Total Protein 5.7 g/dL (6.6-8.7)
--- NOTE | 2021-07-10 00:21 | ED_ITS ---
HPI - SOB/Dyspnea General: Chief Complaint: Shortness of Breath/Dyspnea Stated Complaint: sob Time Seen by Provider: 07/09/21 23:07 Source: patient Mode of arrival: ambulatory Limitations: no limitations History of Present Illness: HPI Narrative: 60-year-old male states that over the last 2 days been having increasing dyspnea mainly with laying flat. He states that he is feels like he has not been able to get a good breath then denies any cough denies any fever denies any chest pain. Patient ambulated to the room resting comfortably 98% on room air and able to speak in full sentences. Has a history of heart disease also smoker with history of COPD states he has been using his inhalers. Associated symptoms: Deny abdominal pain, chest pain, fever(s), nausea or vomiting Review of Systems Const: Denies: fever(s), chills, body aches or change in appetite Eyes: Denies: blurry vision or eye discomfort ENMT: Denies: throat pain or dental pain Card: Denies: chest pain Resp: Reports: dyspnea GI: Denies: abdominal pain, nausea, vomiting or diarrhea : Denies: dysuria Musc: Denies: neck pain or back pain Skin/Breast: Denies: rash Neuro: Denies: headache(s) Psych: Denies: depression Jose/Lymph: Denies: easy bruising All/Imm: Denies: urticaria PFSH ED PFSH: Medical History Allergic rhinosinusitis Allergic rhinosinusitis Atherosclerosis of coronary artery Chronic bronchitis Chronic frontal sinusitis Chronic sinusitis Chronic vasomotor rhinitis Fracture of triquetrum of left wrist Hypercholesteremia Hypertension Nasal obstruction Nasal septal deformity Nasal turbinate hypertrophy Nicotine addiction Obstructive sleep apnea Type 2 diabetes mellitus Surgical History H/O sinus surgery History of sinus surgery Family History Brother , Age 51 Heart attack Social History Smoking risk assessment/counseling performed?: Yes Alcohol intake: current Alcohol intake frequency: holidays/special occasions only Lives independently: Yes Household members: significant other Marital status: Single Current occupational status: disabled History of recent travel: No Current gender identity: Male Physical Exam Const: COMMON NORMALS: no acute distress, patient oriented x3 and healthy appearing HENMT: COMMON NORMALS: normocephalic and atraumatic HEAD & SCALP: normocephalic and atraumatic Eye: COMMON NORMALS: Equal, round and reactive pupils present and EOMs intact bilaterally PUPIL: Yes Equal, round and reactive pupils present Neck/C-Spine: COMMON NORMALS: full ROM and supple Chest: COMMONS NORMALS: normal inspection of the chest and normal palpation of entire chest wall Resp: COMMON NORMALS: normal respiratory effort, No retractions, No use of accessory muscles and clear to auscultation bilaterally AUSCULTATION: clear to auscultation bilaterally Cardio: COMMON NORMALS: regular rate, regular rhythm and No murmurs present (Cardio) RATE: regular rate RHYTHM: regular rhythm GI: COMMON NORMALS: Normal to inspection, nondistended, normoactive bowel sounds present, Soft to palpation, non-tender and no masses PALPATION: Yes Soft to palpation Extremity: COMMON NORMALS: normal to inspection and full ROM Neuro: COMMON NORMALS: patient oriented x3, moves all extremities and no focal motor deficits Psych: COMMON NORMALS: mental status grossly normal, Normal thought process present and cooperative THOUGHT PROCESS: Normal thought process present Skin: COMMON NORMALS: no rashes or lesions noted and no wounds GENERAL SKIN EXAM: no rashes or lesions noted Course Vital Signs: Vital signs: Vital Signs Temperature 98.6 F 07/09/21 22:40 Pulse Rate 63 07/09/21 22:40 Respiratory Rate 14 07/09/21 22:40 Blood Pressure 130/78 07/09/21 22:40 Pulse Oximetry 98 07/09/21 22:40 MDM - SOB/Dyspnea MDM Narrative: Medical decision making narrative: Patient presents here with dyspnea likely from his COPD he is well-appearing here blood work is all normal no signs of pneumonia. CT shows no signs of pulmonary embolism he has no signs of cardiac cause he requires no oxygen here he is stable for discharge return if worsening. Lab Data: Labs: Lab Results 07/09/21 07/09/21 07/09/21 23:21 23:21 23:21 WBC 9.5 10^3/uL 10^3/ uL (4.0-10.0) RBC 5.45 10^6/uL H 10 ^6/uL (4.1-5.3) Hgb 15.6 g/dL g/dL (11.7-16.6) Hct 46.8 % % (42.0-52.0) MCV 85.9 fl fl (80-94) MCH 28.6 pg pg (28.0-34.0) MCHC 33.3 g/dL g/dL (30.0-36.0) RDW 13.5 % % (12.1-15.1) Plt Count 323 10^3/cmm 10^3 /cmm (130-400) MPV 9.6 fL fL (7.4-10.4) Neut % (Auto) 58.4 % % Lymph % (Auto) 31.4 % % [place] % (Auto) 8.3 % % Eos % (Auto) 1.1 % % Baso % (Auto) 0.5 % % Neut # (Auto) 5.53 10^3/uL 10^3 /uL (1.8-7.7) Lymph # (Auto) 3.0 10^3/uL 10^3/ uL (0.8-4.8) [place] # (Auto) 0.8 10^3/uL 10^3/ uL (0.2-0.9) Eos # (Auto) 0.1 10^3/uL 10^3/ uL (0.0-0.8) Baso # (Auto) 0.1 10^3/uL 10^3/ uL (0.0-0.1) Nucleated RBC % (a uto) 0 % % Nucleated RBCs # 0.0 /100WBC /100W BC PT 12.70 SECONDS SEC ONDS (12.1-14.9) INR 0.93 (0.8-1.2) Sodium 138 mmol/L mmol/L (136-145) Potassium 3.8 mmol/L mmol/L (3.5-5.1) Chloride 99 mmol/L mmol/L (98-107) Carbon Dioxide 24 mmol/L mmol/L (22-29) Anion Gap 18.8 (5-19) BUN 8 mg/dL mg/dL (6-20) Creatinine 0.6 mg/dL L mg/dL (0.7-1.2) GFR Calculation 138.4 mL/min H mL /min (90-130) Glucose 129 mg/dL H mg/dL (65-115) Calculated Osmolal ity 286 mOsm/kg mOsm/ kg (285-295) Calcium 8.5 mg/dL mg/dL (8.5-10.5) Total Bilirubin 0.4 mg/dL mg/dL (0.15-1.2) AST 17 U/L U/L (0-40) ALT 15 U/L U/L (0-41) Alkaline Phosphata se 132 IU/L H IU/L (40-130) Troponin T Baselin e Troponin T 120 Min [place] Delta Troponin T NT-Pro-B Natriuret Pep 55 pg/mL pg/mL (0-125) Total Protein 5.7 g/dL L g/dL (6.6-8.7) Albumin 3.8 g/dL g/dL (3.5-5.2) Globulin 1.9 g/dL g/dL (1.3-4.6) SARS-CoV-2 Ag (Rap id) 07/09/21 07/10/21 07/10/21 23:21 00:28 01:07 WBC RBC Hgb Hct MCV MCH MCHC RDW Plt Count MPV Neut % (Auto) Lymph % (Auto) [place] % (Auto) Eos % (Auto) Baso % (Auto) Neut # (Auto) Lymph # (Auto) [place] # (Auto) Eos # (Auto) Baso # (Auto) Nucleated RBC % (a uto) Nucleated RBCs # PT INR Sodium Potassium Chloride Carbon Dioxide Anion Gap BUN Creatinine GFR Calculation Glucose Calculated Osmolal ity Calcium Total Bilirubin AST ALT Alkaline Phosphata se Troponin T Baselin e 10 ng/L ng/L (0-15) Troponin T 120 Min [place] 10.16 ng/L ng/L (0-15) Delta Troponin T 0.16 ABS# ABS# (0-10) NT-Pro-B Natriuret Pep Total Protein Albumin Globulin SARS-CoV-2 Ag (Rap id) Negative (Negative) EKG Data^: EKG 1: Attestation: I personally reviewed and interpreted this EKG as follows: EKG Interpretation Date: 07/10/21 EKG interpretation time: 00:30 Interpretation: sinus daryl hr [address] or t wave abnormalities qrs 122 qtc 419 Discharge Plan Discharge Patient Disposition: Home Clinical Impression: Dyspnea Qualifiers: Dyspnea type: unspecified Qualified Code(s): R06.00 - Dyspnea, unspecified Condition: Stable Prescriptions: No Action aspirin [Adult Aspirin Regimen] 81 mg tablet,delayed release (DR/EC) 81 mg PO QAM RF: 0 budesonide-formoterol [Symbicort] 80-4.5 mcg/actuation HFA aerosol inhaler 2 puff INHALATION Q12H 30 Days Qty: 10.2 RF: 3 Spiriva Respimat 1.25 mcg/actuation mist 2 puff inhalation DAILY 30 Days Qty: 4 RF: 4 atorvastatin 40 mg tablet 40 mg PO BEDTIME RF: 0 allopurinol 300 mg tablet 300 mg PO QAM RF: 0 hydrochlorothiazide 25 mg tablet 25 mg PO DAILY RF: 0 benazepril 20 mg tablet 20 mg PO DAILY RF: 0 (DME) Fast Form Cock up Splint See Rx Instructions .ROUTE .MEDSUPPLY Qty: 1 RF: 0 isosorbide mononitrate 30 mg tablet extended release 24 hr 30 mg PO BID Qty: 180 RF: 2 albuterol sulfate 90 mcg/actuation HFA aerosol inhaler 2 inh INHALATION Q6H PRN (Reason: shortness of breath or wheezing) Qty: 6.7 RF: 0 metoprolol tartrate 100 mg Tablet 100 mg PO BID RF: 0 amlodipine 10 mg tablet 10 mg PO QAM RF: 0 loratadine 10 mg tablet 10 mg PO DAILY RF: 0 azelastine 137 mcg (0.1 %) aerosol,spray 2 spray INTRANASAL BID PRN (Reason: UNKNOWN) RF: 0 ipratropium bromide 42 mcg (0.06 %) spray,non-aerosol 2 spray intranasal QID PRN (Reason: UNKNOWN) RF: 0 Flonase Allergy Relief 50 mcg/actuation spray,suspension 2 spray INTRANASAL BID PRN (Reason: Allergy Symptoms) RF: 0 Protonix 40 mg tablet,delayed release (DR/EC) 40 mg PO DAILY Qty: 30 RF: 3 nitroglycerin 0.4 mg tablet, sublingual 0.4 mg sublingual Q5M PRN (Reason: chest pain) Qty: 30 RF: 3 metformin 500 mg tablet 500 mg PO BID Qty: 0 RF: 0 Discharge Orders: Discharge ED (Routine); Ordered 07/10/21 Ordered By: Mariah Simmons Referrals: Emma Uribe DO [Primary Care Provider] - 1-3 days Discharge Diet: Advance as tolerated Discharge Activity: Resume usual activity Patient Instructions: Dyspnea (ED) Coding Level of Care Code ED Dean Of Faculty for Chg 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
[2021-07-10] MEDS: ipratropium-albuterol 3 mL Neb INHALATION (00:42)
[2021-07-10 01:01] LABS: SARS Covid-2 Antigen Negative (Negative)
[2021-07-10 01:35] LABS: Troponin 5 2HR 10.16 ng/L (0-15); Troponin 5 2HR Delta 0.16 ABS# (0-10)
--- NOTE | 2021-07-10 01:47 | CTR_ITS ---
PROCEDURE INFORMATION: Exam: CTA Chest With Contrast Exam date and time: 07/10/2021 1:47 AM Age: 60 years old Clinical indication: Dyspnea and shortness of breath; Patient HX: SOB with dyspnea. History of copd. TECHNIQUE: Imaging protocol: Computed tomographic angiography of the chest with contrast. 3D rendering (Not supervised by radiologist): MIP and/or 3D reconstructed images were created by the technologist. Radiation optimization: All CT scans at this facility use at least one of these dose optimization techniques: automated exposure control; mA and/or kV adjustment per patient size (includes targeted exams where dose is matched to clinical indication); or iterative reconstruction. Contrast material: OMNI 350; Contrast volume: 72 ml; Contrast route: INTRAVENOUS (IV); COMPARISON: CR (CHEST, ) 07/09/2021 11:57 PM RADIATION DOSE METRICS: Total DLP (mGy-cm): 559.48 FINDINGS: Pulmonary arteries: Normal. No pulmonary emboli. Aorta: Unremarkable. No aortic aneurysm. No aortic dissection. Lungs: A 9 x 14 mm calcific nodule is seen in the left hemithorax laterally compatible with a calcified granuloma. Pleural spaces: Mild irregular pleural thickening is seen in the left apex. Heart: Unremarkable. No cardiomegaly. No pericardial effusion. Lymph nodes: Mildly prominent mediastinal lymph nodes are seen that are below CT criteria for lymphadenopathy. Several lymph nodes are partially calcified as well. Liver: 9 x 11 mm calcification is seen within the left hepatic lobe and a 4 mm calcifications seen in the right hepatic lobe compatible with calcified granulomas. Bones/joints: Unremarkable. No acute fracture. Soft tissues: Unremarkable. CT/CT angio chest PE protcl [id number] IMPRESSION: 1. There is no evidence for pulmonary emboli. 2. Calcified pulmonary and hepatic granulomas.
[2021-07-10] MEDS: dexamethasone 10 mg/mL INJ IVP (02:25)
[2021-07-10] MEDS: iohexol 350 mg/mL 100 mL Btl IV (02:44)
--- NOTE | 2021-07-10 02:48 | PC.NURSE ---
Pt. and father moved to room 9 so that the patient could have a sitter outside of the room . pt. has father at bedside. Pt. is calm, pleasant and agreeable.
== END 2021-07-10 03:36 | disposition home or self-care (01) ==
PROVIDERS: Emergency Provider Emergency Medicine; PCP Family Medicine
DX: R06.00 Dyspnea, unspecified (principal); Z79.82 Long term (current) use of aspirin; Z79.84 Long term (current) use of oral hypoglycemic drugs; I25.10 Atherosclerotic heart disease of native coronary artery without angina pectoris; I10 Essential (primary) hypertension; E11.9 Type 2 diabetes mellitus without complications; Z20.822 Contact with and (suspected) exposure to COVID-19
CPT/HCPCS: 36415; 71045; 71275; 80053; 83880; 84484; 85025; 85610; 87426; 93005; 94640; 96374; 99283; J1100; Q9967

== ENCOUNTER 2021-08-11 20:16 | Emergency (ER) | payer MEDICARE, MEDICAID, SELFPAY ==
[2021-08-11 20:31] VITALS: BP 144/75; PULSE 74; RESP 18; TEMP 36.4; O2SAT 97; BMI 33.0
--- NOTE | 2021-08-11 21:53 | XRR_ITS ---
PROCEDURE INFORMATION: Exam: XR Chest Exam date and time: 08/11/2021 9:53 PM Age: 60 years old Clinical indication: Shortness of breath; Additional info: SOB TECHNIQUE: Imaging protocol: XR of the chest. Views: 1 view. COMPARISON: CR (CHEST, ) 07/09/2021 11:57 PM FINDINGS: Lungs: There is calcified granuloma in the left mid lung. No acute infiltrate is identified. Pleural spaces: Unremarkable. No pleural effusion. No pneumothorax. Heart/Mediastinum: Heart is within normal limits of size. Bones/joints: Unremarkable. Other findings: Findings not changed compared with 07/09/2021. XR/XR chest 1V portable [id number] IMPRESSION: No acute infiltrate.
--- NOTE | 2021-08-11 21:53 | ECG_ITS ---
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 Measurements Intervals [place] Rate: 68 P: 45 DC: 232 QRS: 3 QRSD: 118 T: 65 QT: 388 QTc: 414 Interpretive Statements SINUS RHYTHM WITH FIRST DEGREE AV BLOCK Compared to ECG 07/10/2021 00:30:56 Sinus bradycardia no longer present Myocardial infarct finding no longer present Electronically Signed On 08-12-2021 7:18:35 MACHINE LOAD CLERK by Pearl Connelly M.D. [id number]
--- NOTE | 2021-08-11 22:19 | W.ED.SOB ---
HPI - SOB/Dyspnea General: Chief Complaint: Shortness of Breath/Dyspnea Stated Complaint: SOB Time Seen by Provider: 08/11/21 22:19 History of Present Illness: HPI Narrative: 60-year-old male patient comes in today with complaints of difficulty breathing through his nose. Patient reports feeling short of breath. Patient appears mildly unwell but not toxic. Patient appears in no pain. Patient does have a history of coronary artery disease, COPD, hypertension, and diabetes. MD elicited complaint: shortness of breath Pertinent past history: COPD, diabetes and other (CAD) Onset (ago): day(s) Exacerbating factors: lying flat Relieving factors: nothing Review of Systems General: Reports: 10 or more systems reviewed and unremarkable except in HPI and below ENMT: Reports: nasal congestion Resp: Reports: dyspnea PFSH ED PFSH: Medical History Allergic rhinosinusitis Allergic rhinosinusitis Atherosclerosis of coronary artery Chronic bronchitis Chronic frontal sinusitis Chronic sinusitis Chronic vasomotor rhinitis Fracture of triquetrum of left wrist Hypercholesteremia Hypertension Nasal obstruction Nasal septal deformity Nasal turbinate hypertrophy Nicotine addiction Obstructive sleep apnea Type 2 diabetes mellitus Surgical History H/O sinus surgery History of sinus surgery Family History Brother , Age 51 Heart attack Social History Smoking risk assessment/counseling performed?: Yes Alcohol intake: current Alcohol intake frequency: holidays/special occasions only Lives independently: Yes Household members: significant other Marital status: Single Current occupational status: disabled History of recent travel: No Current gender identity: Male Physical Exam Const: COMMON NORMALS: alert HENMT: COMMON NORMALS: atraumatic and TM's normal bilaterally HEAD & SCALP: atraumatic NOSE: Abnormal mucous membranes and turbinates present (Obstruction left naris) TYMPANIC MEMBRANE: TM's normal bilaterally THROAT: posterior oropharynx normal Neck/C-Spine: COMMON NORMALS: full ROM Resp: COMMON NORMALS: normal respiratory effort AUSCULTATION: diminished lung sounds Cardio: COMMON NORMALS: regular rate and regular rhythm RATE: regular rate RHYTHM: regular rhythm Extremity: COMMON NORMALS: normal to inspection and no pedal edema Neuro: SENSORIUM/ORIENTATION: Yes alert Psych: COMMON NORMALS: cooperative Course Vital Signs: Vital signs: Vital Signs Temperature 97.6 F 08/11/21 20:31 Pulse Rate 74 08/11/21 20:31 Respiratory Rate 18 08/11/21 20:31 Blood Pressure 144/75 08/11/21 20:31 Pulse Oximetry 97 08/11/21 20:31 MDM - SOB/Dyspnea Medical Decision Making 60-year-old male patient comes in today with complaints of difficulty breathing. Patient reports that he feels like he cannot breathe through his nose and believes his sinuses are obstructed. Patient has a history of 2 prior sinus surgeries. Patient has been on antibiotics, Levaquin, for the last 10 days. On exam patient has some obstruction noted to the left naris. Posterior pharynx shows some clear drainage. Lungs are clear to auscultation. Skin is warm and dry. Remainder of exam is normal. Vital signs are are normal. Differential diagnosis includes but not limited to CHF, pneumonia, chronic rhinitis, sinusitis. Chest x-ray was normal. CT of the sinuses noted some stable postoperative findings but no obvious signs of acute infection. CBC and CMP were unremarkable. BNP was in normal range. Believe the patient probably has some chronic rhinitis. Recommend the use of a decongestant to help with symptoms as needed. Patient will continue with present plan otherwise. Return to the ED for new concerns. Lab Data : 08/11/21 22:52 08/11/21 22:52 Labs/Radiology: Radiology Impressions Chest X-Ray 08/11/21 21:53 IMPRESSION: No acute infiltrate. Sinuses CT 08/11/21 22:27 IMPRESSION: 1. Stable postoperative findings. 2. No acute abnormality. The paranasal sinuses are presently clear Laboratory Results WBC 9.6 10^3/uL (4.0-10.0) 08/11/21 22:52 RBC 5.56 10^6/uL (4.1-5.3) H 08/11/21 22:52 Hgb 16.2 g/dL (11.7-16.6) 08/11/21 22:52 Hct 48.1 % (42.0-52.0) 08/11/21 22:52 MCV 86.5 fl (80-94) 08/11/21: MCH 29.1 pg (28.0-34.0) 08/11/21: MCHC 33.7 g/dL (30.0-36.0) 08/11/21: RDW 13.2 % (12.1-15.1) 08/11/21: Plt Count 286 10^3/cmm (130-400) 08/11/21: MPV 9.7 fL (7.4-10.4) 08/11/21 22:52 Neut % (Auto) 64.2 % 08/11/21 22: Lymph % (Auto) 24.0 % 08/11/21: [place] % (Auto) 10.6 % 08/11/21: Eos % (Auto) 0.6 % 08/11/21: Baso % (Auto) 0.3 % 08/11/21: Neut # (Auto) 6.16 10^3/uL (1.8-7.7) 08/11/21: Lymph # (Auto) 2.3 10^3/uL (0.8-4.8) 08/11/21: [place] # (Auto) 1.0 10^3/uL (0.2-0.9) H 08/11/21: Eos # (Auto) 0.1 10^3/uL (0.0-0.8) 08/11/21: Baso # (Auto) 0.0 10^3/uL (0.0-0.1) 08/11/21: Nucleated RBC % (auto) 0 % 08/11/21: Nucleated RBCs # 0.0 /100WBC 08/11/21 22: Sodium 142 mmol/L (136-145) 08/11/21: Potassium 3.3 mmol/L (3.5-5.1) L 08/11/21: Chloride 103 mmol/L (98-107) 08/11/21: Carbon Dioxide 28 mmol/L (22-29) 08/11/21: Anion Gap 14.3 (5-19) 08/11/21: BUN 9 mg/dL (6-20) 08/11/21 22:52 Creatinine 0.7 mg/dL (0.7-1.2) 08/11/21 22:52 GFR Calculation 115.8 mL/min (90-130) 08/11/21 22:52 Glucose 98 mg/dL (65-115) 08/11/21 22:52 Calculated Osmolality 293 mOsm/kg (285-295) 08/11/21 22:52 Calcium 9.4 mg/dL (8.5-10.5) 08/11/21 22:52 Total Bilirubin 0.6 mg/dL (0.15-1.2) 08/11/21 22:52 AST 13 U/L (0-40) 08/11/21 22:52 ALT 12 U/L (0-41) 08/11/21 22:52 Alkaline Phosphatase 144 IU/L (40-130) H 08/11/21 22:52 NT-Pro-B Natriuret Pep 107 pg/mL (0-125) 08/11/21 22:52 Total Protein 6.7 g/dL (6.6-8.7) 08/11/21 22:52 Albumin 4.1 g/dL (3.5-5.2) 08/11/21 22:52 Globulin 2.6 g/dL (1.3-4.6) 08/11/21 22:52 Discharge Plan Discharge Patient Disposition: Home Clinical Impression: Nasal sinus congestion Dyspnea Qualifiers: Dyspnea type: shortness of breath Qualified Code(s): R06.02 - Shortness of breath Condition: Stable Prescriptions: New pseudoephedrine-guaifenesin 60-600 mg tablet extended release 12 hr 1 tab PO BID PRN (Reason: nasal congestion) Qty: 20 0RF No Action aspirin [Adult Aspirin Regimen] 81 mg tablet,delayed release (DR/EC) 81 mg PO QAM 0RF budesonide-formoterol [Symbicort] 80-4.5 mcg/actuation HFA aerosol inhaler 2 puff INHALATION Q12H 30 Days Qty: 10.2 3RF Spiriva Respimat 1.25 mcg/actuation mist 2 puff inhalation DAILY 30 Days Qty: 4 4RF atorvastatin 40 mg tablet 40 mg PO BEDTIME 0RF allopurinol 300 mg tablet 300 mg PO QAM 0RF hydrochlorothiazide 25 mg tablet 25 mg PO DAILY 0RF benazepril 20 mg tablet 20 mg PO DAILY 0RF (DME) Fast Form Cock up Splint See Rx Instructions .ROUTE .MEDSUPPLY Qty: 1 0RF Rx Instructions: As directed isosorbide mononitrate 30 mg tablet extended release 24 hr 30 mg PO BID Qty: 180 2RF albuterol sulfate 90 mcg/actuation HFA aerosol inhaler 2 inh INHALATION Q6H PRN (Reason: shortness of breath or wheezing) Qty: 6.7 0RF metoprolol tartrate 100 mg Tablet 100 mg PO BID 0RF amlodipine 10 mg tablet 10 mg PO QAM 0RF loratadine 10 mg tablet 10 mg PO DAILY 0RF azelastine 137 mcg (0.1 %) aerosol,spray 2 spray INTRANASAL BID PRN (Reason: UNKNOWN) 0RF Rx Instructions: administer into each nostril ipratropium bromide 42 mcg (0.06 %) spray,non-aerosol 2 spray intranasal QID PRN (Reason: UNKNOWN) 0RF Rx Instructions: administer into each nostril Flonase Allergy Relief 50 mcg/actuation spray,suspension 2 spray INTRANASAL BID PRN (Reason: Allergy Symptoms) 0RF Rx Instructions: administer into each nostril Protonix 40 mg tablet,delayed release (DR/EC) 40 mg PO DAILY Qty: 30 3RF nitroglycerin 0.4 mg tablet, sublingual 0.4 mg sublingual Q5M PRN (Reason: chest pain) Qty: 30 3RF Rx Instructions: do not exceed 3 doses per episode metformin 500 mg tablet 500 mg PO BID Qty: 0 0RF Discharge Orders: Discharge ED (Routine); Ordered 08/11/21 Ordered By: Jaime Sánchez Referrals: Emma Uribe DO [Primary Care Provider] - Discharge Diet: Usual diet Discharge Activity: Increase activity as tolerated Activity Restrictions/Additional Instructions: Home and rest. Use nasal decongestant spray as needed for nasal congestion, avoid chronic use of decongestant spray. It should only be used for three days at a time. Follow-up with primary care or ENT for further treatment and evaluation. Coding Level of Care Code ED Head Sampler for Chg Fwd Exam Detailed
--- NOTE | 2021-08-11 22:27 | CTR_ITS ---
PROCEDURE INFORMATION: Exam: CT Maxillofacial Without Contrast, Sinus Exam date and time: 08/11/2021 10:27 PM Age: 60 years old Clinical indication: Patient HX: Patient C/O SOB with worsening of inhalation through nose. History of chronic sinusitis. ; Additional info: Nasal obstruction TECHNIQUE: Imaging protocol: CT Maxillofacial without contrast. Focus on the sinuses. Radiation optimization: All CT scans at this facility use at least one of these dose optimization techniques: automated exposure control; mA and/or kV adjustment per patient size (includes targeted exams where dose is matched to clinical indication); or iterative reconstruction. COMPARISON: CT sinus wo con* [id number] 09/15/2020 2:38 PM RADIATION DOSE METRICS: Total DLP (mGy-cm): 572.46 FINDINGS: Frontal sinuses: All of the visualized paranasal sinuses including the frontal sinuses are now clear. Ethmoid air cells: See Bones/joints finding. Sphenoid sinuses: Normal. No air-fluid levels. Maxillary sinuses: There is no mucoperiosteal thickening or sinus fluid. Nasal cavity/Septum: Mild residual nasal septal deviation towards the right not significantly changed. Orbital cavity: Orbits are normal. Globes are unremarkable. Bones/joints: Postsurgical changes of medial antrostomies and bilateral uncinatectomies are not significantly changed. Bilateral ethmoidectomies are also seen unchanged. Soft tissues: Unremarkable. CT/CT sinus wo con* [id number] IMPRESSION: 1. Stable postoperative findings. 2. No acute abnormality. The paranasal sinuses are presently clear
[2021-08-11 23:00] LABS: Basophils % 0.3 %; Eosinophils # 0.1 10^3/uL (0.0-0.8); Eosinophils % 0.6 %; Hematocrit 48.1 % (42.0-52.0); Hemoglobin 16.2 g/dL (11.7-16.6); Lymphocytes # 2.3 10^3/uL (0.8-4.8); Mean Corpuscular HGB Conc 33.7 g/dL (30.0-36.0); Mean Corpuscular Hemoglobin 29.1 pg (28.0-34.0); Mean Corpuscular Volume 86.5 fl (80-94); Mean Platelet Volume 9.7 fL (7.4-10.4); Monocytes % 10.6 %; Neutrophils # 6.16 10^3/uL (1.8-7.7); Neutrophils % 64.2 %; Nucleated Red Blood Cells % 0 %; Platelet Count 286 10^3/cmm (130-400); Red Blood Count 5.56 10^6/uL (4.1-5.3); Red Cell Distribution Width 13.2 % (12.1-15.1); White Blood Count 9.6 10^3/uL (4.0-10.0)
[2021-08-11 23:19] LABS: Alanine Aminotransferase 12 U/L (0-41); Albumin Level 4.1 g/dL (3.5-5.2); Alkaline Phosphatase 144 IU/L (40-130); Anion Gap 14.3 (5-19); Aspartate Amino Transferase 13 U/L (0-40); Blood Urea Nitrogen 9 mg/dL (6-20); Calcium 9.4 mg/dL (8.5-10.5); Carbon Dioxide 28 mmol/L (22-29); Chloride 103 mmol/L (98-107); Globulin 2.6 g/dL (1.3-4.6); Glomerular Filtration Rate 115.8 mL/min (90-130); Glucose 98 mg/dL (65-115); NT Pro B Type Natriuretic Pept 107 pg/mL (0-125); Osmolality Calculated 293 mOsm/kg (285-295); Potassium 3.3 mmol/L (3.5-5.1); Sodium 142 mmol/L (136-145); Total Bilirubin 0.6 mg/dL (0.15-1.2); Total Protein 6.7 g/dL (6.6-8.7)
[2021-08-12] MEDS: oxymetazoline 0.05% Nasal Spray 15 mL 2 SPRAY NOSTRIL-B (00:12)
== END 2021-08-12 00:16 | disposition home or self-care (01) ==
PROVIDERS: Emergency Medicine; Emergency Provider Nurse Practitioner Family; PCP Family Medicine
DX: R06.02 Shortness of breath (principal); R09.81 Nasal congestion; Z79.82 Long term (current) use of aspirin; Z79.84 Long term (current) use of oral hypoglycemic drugs; I25.10 Atherosclerotic heart disease of native coronary artery without angina pectoris; I10 Essential (primary) hypertension; E11.9 Type 2 diabetes mellitus without complications
CPT/HCPCS: 70486; 71045; 80053; 83880; 85025; 93005; 99283

== ENCOUNTER → 2021-08-20 10:24 | Outpatient (BNVA) | payer MEDICARE, MEDICAID, SELFPAY | PROVIDERS: PCP Family Medicine; Visit Provider Internal Medicine Critical Care Medicine | DX: J42 Unspecified chronic bronchitis (principal); J30.9 Allergic rhinitis, unspecified; F17.210 Nicotine dependence, cigarettes, uncomplicated; G47.33 Obstructive sleep apnea (adult) (pediatric); R07.2 Precordial pain; I10 Essential (primary) hypertension; E11.9 Type 2 diabetes mellitus without complications | CPT/HCPCS: 99214 ==

== ENCOUNTER → 2021-09-22 10:21 | Outpatient (BNVA) | payer MEDICARE, MEDICAID, SELFPAY | PROVIDERS: PCP Family Medicine; Visit Provider Otolaryngology | DX: R09.81 Nasal congestion (principal); F17.210 Nicotine dependence, cigarettes, uncomplicated | CPT/HCPCS: 99213 ==

== ENCOUNTER → 2022-01-11 11:13 | Outpatient (BNVA) | payer MEDICARE, MEDICAID, SELFPAY | PROVIDERS: PCP Family Medicine; Visit Provider Internal Medicine Cardiovascular Disease | DX: I25.119 Atherosclerotic heart disease of native coronary artery with unspecified angina pectoris (principal); I10 Essential (primary) hypertension; E78.5 Hyperlipidemia, unspecified; E11.9 Type 2 diabetes mellitus without complications; R06.02 Shortness of breath; F17.210 Nicotine dependence, cigarettes, uncomplicated; Z79.84 Long term (current) use of oral hypoglycemic drugs | CPT/HCPCS: 99214 ==

== ENCOUNTER → 2022-02-25 09:00 | Outpatient (BNVA) | payer MEDICARE, MEDICAID, SELFPAY | PROVIDERS: PCP Family Medicine; Visit Provider Internal Medicine Critical Care Medicine | DX: J42 Unspecified chronic bronchitis (principal); R06.02 Shortness of breath; J30.9 Allergic rhinitis, unspecified; G47.33 Obstructive sleep apnea (adult) (pediatric); R07.2 Precordial pain; F17.210 Nicotine dependence, cigarettes, uncomplicated | CPT/HCPCS: 99214 ==

== ENCOUNTER 2022-03-17 14:32 | Emergency (ER) | payer MEDICARE, MEDICAID, SELFPAY ==
[2022-03-17] VITALS (36 sets, daily range): BP systolic 120–165; BP diastolic 81–97; PULSE 70–71; RESP 15–16; TEMP 36.5; O2SAT 94–98; BMI 32.7
--- NOTE | 2022-03-17 14:39 | ECG_ITS ---
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 Measurements Intervals [place] Rate: 67 P: 46 DE: 224 QRS: 2 QRSD: 114 T: 63 QT: 389 QTc: 412 Interpretive Statements SINUS RHYTHM WITH FIRST DEGREE AV BLOCK PROBABLE INFERIOR MYOCARDIAL INFARCTION , OF INDETERMINATE AGE [35 ms Q WAVE IN II/aVF] INTERPRETATION BASED ON A DEFAULT AGE OF 40 YEARS Compared to ECG 08/11/2021 20:42:38 Myocardial infarct finding now present Electronically Signed On 03-18-2022 8:52:23 CDT by Negro Porras M.D. [email or web address]
--- NOTE | 2022-03-17 14:57 | XR_ITS ---
WS: [id number] Exam: XR chest 1V portable [id number] Date/Time of Exam: 03/17/2022 3:36 PM Reason For Exam: cp Comparison 08/11/2021. The lungs are fully expanded and clear. Normal cardiomediastinal silhouette and regional bony element s. No pleural effusions. Calcified granuloma in the lateral lower left lung zone. No change since pre vious study. XR/XR chest 1V portable [id number] IMPRESSION: 1. No acute cardiopulmonary finding.
--- NOTE | 2022-03-17 15:49 | PC.NURSE ---
pt reports left arm pain and lightheadedness that began this morning. reports hx HI. reports baseline dyspnea and cough due to smoking. denies chest pain or new/worsened dyspnea, nausea, or vomiting. Pt reports unsure if symptoms are due to sinuses. pt respirations even and unlabored, lung sounds clear bilat, speaking in complete sentences without difficulty, radial pulse WNL. pt denies numbness or tingling.
[2022-03-17 16:05] LABS: Basophils % 0.5 %; Eosinophils # 0.1 10^3/uL (0.0-0.8); Eosinophils % 1.2 %; Hematocrit 49.9 % (42.0-52.0); Hemoglobin 16.6 g/dL (11.7-16.6); Lymphocytes # 2.1 10^3/uL (0.8-4.8); Mean Corpuscular HGB Conc 33.3 g/dL (30.0-36.0); Mean Corpuscular Volume 90.1 fl (80-94); Mean Platelet Volume 9.9 fL (7.4-10.4); Monocytes # 0.7 10^3/uL (0.2-0.9); Monocytes % 8.8 %; Neutrophils % 64.1 %; Nucleated Red Blood Cells % 0 %; Platelet Count 300 10^3/cmm (130-400); Red Blood Count 5.54 10^6/uL (4.1-5.3); Red Cell Distribution Width 13.2 % (12.1-15.1); White Blood Count 8.3 10^3/uL (4.0-10.0)
--- NOTE | 2022-03-17 16:10 | USR_ITS ---
PROCEDURE INFORMATION: Exam: US Duplex Left Upper Extremity Veins, Limited Exam date and time: 03/17/2022 4:19 PM Age: 61 years old Clinical indication: Pain; Arm, upper; Left; Additional info: Arm pain, eval dvt TECHNIQUE: Imaging protocol: Real-time Duplex ultrasound of the Left Upper Extremity with 2-D odom scale, color Doppler flow and spectral waveform analysis with image documentation. Limited exam focused on the left upper extremity veins. COMPARISON: CT angio chest PE protcl [id number] 07/10/2021 2:45 AM FINDINGS: Left deep veins: Unremarkable. Axillary and brachial veins are patent throughout without thrombus. Normal Doppler waveforms. Normal compressibility and/or augmentation response. Visualized internal jugular and subclavian veins are patent. Left superficial veins: Unremarkable. Visualized cephalic and basilic veins are patent without thrombus. Soft tissues: Unremarkable. US/[place] [id number] IMPRESSION: No evidence of deep vein thrombosis.
[2022-03-17 16:25] LABS: Troponin(5th) Baseline 9 ng/L (0-15)
[2022-03-17 16:34] LABS: Alanine Aminotransferase 14 U/L (0-41); Alkaline Phosphatase 132 U/L (40-130); Aspartate Amino Transferase 14 U/L (0-40); Blood Urea Nitrogen 11 mg/dL (6-20); Calcium 9.4 mg/dL (8.5-10.5); Carbon Dioxide 28 mmol/L (22-29); Chloride 100 mmol/L (98-107); Globulin 2.9 g/dL (1.3-4.6); Glomerular Filtration Rate 86.4 mL/min (90-130); Glucose 115 mg/dL (65-115); Lipase 37 U/L (13-60); NT Pro B Type Natriuretic Pept 78 pg/mL (0-125); Osmolality Calculated 290 mOsm/kg (285-295); Sodium 140 mmol/L (136-145); Total Bilirubin 0.6 mg/dL (0.15-1.2); Total Protein 6.9 g/dL (6.6-8.7)
--- NOTE | 2022-03-17 16:55 | ED_ITS ---
HPI - General Adult General: Chief complaint: Extremity Problem,Nontraumatic Stated complaint: left arm pain Time Seen by Provider: 03/17/22 15:35 History of Present Illness: Patient is a 61-year-old male with a history of chronic bronchitis, hypertension, smoking, type 2 diabetes presenting to the emergency with complaints of left arm pain since 10am. Patient tells me that since 10 AM this morning he has had left arm ache and pain. Patient denies any fall, injury, numbness, nausea/vomiting, diaphoresis, chest pain or shortness of breath. Patient tells me that he is concerned this may be related to his heart and said to come to the emergency room for further evaluation. Patient denies any anticoagulation. Patient denies any leg swellings. Patient has no associate exertional dyspnea, pleuritic chest pain, knife stabbing chest pain with radiation to the back, abdominal complaints, diarrhea melena hematochezia. Of note, patient has been followed by Dr. Hartman for his heart. Patient has never had any cardiac stent or CABG previously. Patient had a cardiac catheter ization that was done a year ago with Dr. Thomas which showed no significant vessel dieases. Onset: 10am Duration:ongoing intermitent Location:home Severity:moderate Associated symptoms: Deny chest pain, dyspnea, nausea, rash, palpitations or vomiting Review of Systems Const: Denies: fever(s) or chills Eyes: Denies: change in vision ENMT: Denies: mouth pain Card: Denies: chest pain or palpitations Resp: Denies: dyspnea or non-productive cough GI: Denies: abdominal pain, nausea, vomiting or diarrhea : Denies: dysuria Musc: Reports: extremity pain (+L arm pain) Skin/Breast: Denies: rash or new lesions Neuro: Denies: weakness in extremities Psych: Reports: other (Normal mood) Jose/Lymph: Denies: easy bruising PFSH ED PFSH: Medical History Allergic rhinosinusitis Allergic rhinosinusitis Atherosclerosis of coronary artery Chronic bronchitis Chronic frontal sinusitis Chronic sinusitis Chronic vasomotor rhinitis Fracture of triquetrum of left wrist Hypercholesteremia Hypertension Nasal obstruction Nasal septal deformity Nasal turbinate hypertrophy Nicotine addiction Obstructive sleep apnea Type 2 diabetes mellitus Surgical History H/O sinus surgery History of sinus surgery Family History Brother , Age 51 Heart attack Social History Smoking and tobacco status: current every day smoker (1 ppd) cigarettes Packs smoked per day: 0.5 Years cigarettes smoked: 40 [ Other cigarette details: Hx of 1 PPD x 40 years] Smoking risk assessment/counseling performed?: Yes Alcohol intake: current Alcohol intake frequency: holidays/special occasions only Lives independently: Yes Household members: significant other Marital status: Single Current occupational status: disabled History of recent travel: No Current gender identity: Male Physical Exam Const: COMMON NORMALS: alert HENMT: COMMON NORMALS: atraumatic HEAD & SCALP: atraumatic MOUTH: moist mucous membranes not abnormal Eye: COMMON NORMALS: EOMs intact bilaterally and conjunctivae normal CONJUNCTIVA: Yes conjunctivae normal Neck/C-Spine: COMMON NORMALS: full ROM and supple Resp: COMMON NORMALS: normal respiratory effort and clear to auscultation bilaterally AUSCULTATION: clear to auscultation bilaterally Cardio: COMMON NORMALS: regular rate RATE: regular rate OTHER: 2+ radial pulses b/l GI: COMMON NORMALS: Soft to palpation and non-tender PALPATION: Yes Soft to palpation OTHER: No focal TTP. NO guarding rebound, guarding, rigidity. No CVA tenderness to percussion. Neg Conrad/Neg McBurney's point tenderness, no suprabupic tenderness to palpation. Extremity: COMMON NORMALS: full ROM NARRATIVE EXTREMITY EXAM: +L mid humerus tenderness to palpation, no visible deformity, swelling ecchymoses 2+ radial pulses on the left arm, neurovascular exam intact in left upper extremity Neuro: SENSORIUM/ORIENTATION: Yes alert MOTOR EXAM: No Abnormal motor strength present and Other motor observations present (no focal motor deficits) Psych: COMMON NORMALS: speech normal SPEECH: Yes normal speech MOOD & AFFECT: Yes euthymic mood Course Vital Signs: Vital signs: Vital Signs Temperature 97.7 F 03/17/22 14:43 Pulse Rate 70 03/17/22 14:43 Respiratory Rate 15 03/17/22 14:43 Blood Pressure 120/83 03/17/22 18:35 Pulse Oximetry 96 03/17/22 18:35 Oxygen Delivery Me thod 03/17/22 14:43 MDM - General Adult Medical Decision Making Patient is a 61-year-old male with a history of chronic bronchitis, hypertension, smoking, type 2 diabetes presenting to the emergency with complaints of left arm pain since 10am. Patient is neurologically intact in the left arm. Left arm compartments are nontense. Patient has mild mid humerus tenderness to palpation. Ultrasound negative for any acute pathology. Troponin x2 with delta less than 5 both which are normal. EKG is nonischemic. Patient has no associated chest pain shortness of breath or lightheadedness. At the present, do not suspect ACS. Patient requests close follow up with Dr. Hartman. I have given patient follow up with our protective services case worker to be seen by our outpatient by Cardiology. Patient aware of a call from our protective services case worker to schedule for appointment(s) and verbalizes understanding of the importance of following up. Disposition: Discharge. Patient counseled regarding diagnostic impression, treatment plan. Patient given ED strict return precautions to return for continuation, worsening, or development of new symptoms. Instructed to f/u w/ PCP regarding symptoms today. Patient verbalized understanding. Lab Data : 03/17/22 15:47 03/17/22 15:47 Radiology Impressions Chest X-Ray 03/17/22 14:57 IMPRESSION: 1. No acute cardiopulmonary finding. Venous Duplex 03/17/22 16:10 IMPRESSION: No evidence of deep vein thrombosis. Laboratory Results WBC 8.3 10^3/uL (4.0-10.0) 03/17/22 15:47 RBC 5.54 10^6/uL (4.1-5.3) H 03/17/22 15:47 Hgb 16.6 g/dL (11.7-16.6) 03/17/22 15:47 Hct 49.9 % (42.0-52.0) 03/17/22 15:47 MCV 90.1 fl (80-94) 03/17/22 15:47 MCH 30.0 pg (28.0-34.0) 03/17/22 15:47 MCHC 33.3 g/dL (30.0-36.0) 03/17/22 15:47 RDW 13.2 % (12.1-15.1) 03/17/22 15:47 Plt Count 300 10^3/cmm (130-400) 03/17/22 15:47 MPV 9.9 fL (7.4-10.4) 03/17/22 15:47 Neut % (Auto) 64.1 % 03/17/22 15:47 Lymph % (Auto) 25.0 % 03/17/22 15:47 [place] % (Auto) 8.8 % 03/17/22 15:47 Eos % (Auto) 1.2 % 03/17/22 15:47 Baso % (Auto) 0.5 % 03/17/22 15:47 Neut # (Auto) 5.30 10^3/uL (1.8-7.7) 03/17/22 15:47 Lymph # (Auto) 2.1 10^3/uL (0.8-4.8) 03/17/22 15:47 [place] # (Auto) 0.7 10^3/uL (0.2-0.9) 03/17/22 15:47 Eos # (Auto) 0.1 10^3/uL (0.0-0.8) 03/17/22 15:47 Baso # (Auto) 0.0 10^3/uL (0.0-0.1) 03/17/22 15:47 Nucleated RBC % (auto) 0 % 03/17/22 15:47 Nucleated RBCs # 0.0 /100WBC 03/17/22 15:47 Sodium 140 mmol/L (136-145) 03/17/22 15:47 Potassium 4.0 mmol/L (3.5-5.1) 03/17/22 15:47 Chloride 100 mmol/L (98-107) 03/17/22 15:47 Carbon Dioxide 28 mmol/L (22-29) 03/17/22 15:47 Anion Gap 16.0 (5-19) 03/17/22 15:47 BUN 11 mg/dL (6-20) 03/17/22 15:47 Creatinine 0.9 mg/dL (0.7-1.2) 03/17/22 15:47 GFR Calculation 86.4 mL/min (90-130) L 03/17/22 15:47 Glucose 115 mg/dL (65-115) 03/17/22 15:47 Calculated Osmolality 290 mOsm/kg (285-295) 03/17/22 15:47 Calcium 9.4 mg/dL (8.5-10.5) 03/17/22 15:47 Total Bilirubin 0.6 mg/dL (0.15-1.2) 03/17/22 15:47 AST 14 U/L (0-40) 03/17/22 15:47 ALT 14 U/L (0-41) 03/17/22 15:47 Alkaline Phosphatase 132 U/L (40-130) H 03/17/22 15:47 Troponin T Baseline 9 ng/L (0-15) 03/17/22 15:47 Troponin T 120 Minute 8.27 ng/L (0-15) 03/17/22 18:02 Delta Troponin T -0.73 ABS# (0-10) L 03/17/22 18:02 NT-Pro-B Natriuret Pep 78 pg/mL (0-125) 03/17/22 15:47 Total Protein 6.9 g/dL (6.6-8.7) 03/17/22 15:47 Albumin 4.0 g/dL (3.5-5.2) 03/17/22 15:47 Globulin 2.9 g/dL (1.3-4.6) 03/17/22 15:47 Lipase 37 U/L (13-60) 03/17/22 15:47 Imaging Data Other Imaging: Radiologist's impression: [address] [address] Ultrasound Report Signed Patient: Isiah Knowles V Unit #: [id number] : 1960 Age/Sex: 61 / M ADM Date: 03/17/22 Loc: ER Room/Bed: Attending Dr: Ordering Provider/Ordering MD: Evan Cintron MD Date of Service: 03/17/22 Procedure(s): [place] [address] Accession Number(s): [id number] Report Number: [id number] PROCEDURE INFORMATION: Exam: US Duplex Left Upper Extremity Veins, Limited Exam date and time: 03/17/2022 4:19 PM Age: 61 years old Clinical indication: Pain; Arm, upper; Left; Additional info: Arm pain, eval dvt TECHNIQUE: Imaging protocol: Real-time Duplex ultrasound of the Left Upper Extremity with 2-D odom scale, color Doppler flow and spectral waveform analysis with image documentation. Limited exam focused on the left upper extremity veins. COMPARISON: CT angio chest PE protcl [id number] 07/10/2021 2:45 AM FINDINGS: Left deep veins: Unremarkable. Axillary and brachial veins are patent throughout without thrombus. Normal Doppler waveforms. Normal compressibility and/or augmentation response. Visualized internal jugular and subclavian veins are patent. Left superficial veins: Unremarkable. Visualized cephalic and basilic veins are patent without thrombus.? Soft tissues: Unremarkable. US/[place] [address] IMPRESSION: No evidence of deep vein thrombosis. ? Dictated By: Uvaldo Holley DO Signed By: Uvaldo Holley DO Signed Date/Time: 03/17/22 1827 DD/ [address] [address] XRay Report Signed Patient: Isiah Knowles V Unit #: [id number] : 1960 Age/Sex: 61 / M ADM Date: 03/17/22 Loc: ER Room/Bed: Attending Dr: Ordering Provider/Ordering MD: Jaime Sánchez NP Date of Service: 03/17/22 Procedure(s): XR chest 1V portable [id number] Accession Number(s): [id number] Report Number: [id number] WS: [id number] Exam: XR chest 1V portable [id number] Date/Time of Exam: 03/17/2022 3:36 PM Reason For Exam: cp Comparison 08/11/2021. The lungs are fully expanded and clear. Normal cardiomediastinal silhouette and regional bony elements. No pleural effusions. Calcified granuloma in the lateral lower left lung zone. No change since previous study. XR/XR chest 1V portable [id number] IMPRESSION: 1. No acute cardiopulmonary finding. ? Dictated By: Devan Hudson DO Signed By: Devan Hudson DO Signed Date/Time: 03/17/22 1544 DD/ 1543 Discharge Plan Discharge Patient Disposition: Home Clinical Impression: Arm pain Condition: Stable Prescriptions: New acetaminophen 500 mg tablet 500 mg PO Q6H PRN (Reason: pain) 5 Days Qty: 20 0RF No Action aspirin [Adult Aspirin Regimen] 81 mg tablet,delayed release (DR/EC) 81 mg PO QAM isosorbide mononitrate 60 mg tablet extended release 24 hr 60 mg PO DAILY Qty: 90 3RF atorvastatin 40 mg tablet 40 mg PO BEDTIME allopurinol 300 mg tablet 300 mg PO QAM hydrochlorothiazide 25 mg tablet 25 mg PO DAILY benazepril 20 mg tablet 20 mg PO DAILY (DME) Fast Form Cock up Splint See Rx Instructions .ROUTE .MEDSUPPLY Qty: 1 0RF Rx Instructions: As directed Spiriva Respimat 1.25 mcg/actuation mist 2 puff inhalation DAILY 30 Days Qty: 4 4RF budesonide-formoterol [Symbicort] 80-4.5 mcg/actuation HFA aerosol inhaler 2 puff INHALATION Q12H 30 Days Qty: 10.2 3RF albuterol sulfate 90 mcg/actuation HFA aerosol inhaler 2 inh INHALATION Q6H PRN (Reason: shortness of breath or wheezing) Qty: 6.7 0RF amlodipine 10 mg tablet 10 mg PO QAM loratadine 10 mg tablet 10 mg PO DAILY azelastine 137 mcg (0.1 %) aerosol,spray 2 spray INTRANASAL BID Rx Instructions: administer into each nostril nitroglycerin 0.4 mg tablet, sublingual 0.4 mg sublingual Q5M PRN (Reason: chest pain) Qty: 30 3RF Rx Instructions: do not exceed 3 doses per episode metoprolol tartrate 100 mg tablet 100 mg PO BID metformin 500 mg tablet 250 mg PO BID omeprazole 20 mg capsule,delayed release(DR/EC) 20 mg PO BID montelukast 10 mg tablet 10 mg PO BEDTIME Discharge Orders: Discharge ED (Routine); Ordered 03/17/22 Ordered By: Evan Cintron Referrals: Emma Uribe DO [Primary Care Provider] - Discharge Diet: Advance as tolerated Discharge Activity: Increase activity as tolerated Patient Instructions: Pain Management Activity Restrictions/Additional Instructions: Come back to the emergency room if your chest pain worsens, have any fever or chills, worsening shortness of breath, worsening exertional lightheadedness, or any new or concerning complaints. Coding Level of Care Code ED Warehouse Delivery Manager for Chg 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
--- NOTE | 2022-03-17 19:04 | PC.NURSE ---
report given to CHIARA Robledo
[2022-03-17 19:15] LABS: Troponin 5 2HR 8.27 ng/L (0-15)
[2022-03-17 19:23] LABS: Troponin 5 2HR Delta -0.73 ABS# (0-10)
== END 2022-03-17 19:52 | disposition home or self-care (01) ==
PROVIDERS: Nurse Practitioner Family; Emergency Provider Emergency Medicine; PCP Family Medicine
DX: M79.602 Pain in left arm (principal); Z79.82 Long term (current) use of aspirin; Z79.84 Long term (current) use of oral hypoglycemic drugs; I25.10 Atherosclerotic heart disease of native coronary artery without angina pectoris; I10 Essential (primary) hypertension; E11.9 Type 2 diabetes mellitus without complications; F17.210 Nicotine dependence, cigarettes, uncomplicated
CPT/HCPCS: 71045; 80053; 83690; 83880; 84484; 85025; 93005; 93971; 99285

== ENCOUNTER 2022-05-19 10:27 | Outpatient (CLI) | payer MEDICARE, MEDICAID, SELFPAY | END 2022-05-19 10:28 | disposition home or self-care (01) | PROVIDERS: PCP Family Medicine; Visit Provider Internal Medicine Critical Care Medicine | DX: R06.02 Shortness of breath (principal) | CPT/HCPCS: 94010; 94729 ==

== ENCOUNTER 2022-07-18 23:53 | Emergency (ER) | payer MEDICARE, MEDICAID, SELFPAY ==
[2022-07-19 00:04] VITALS: BP 131/79; PULSE 72; RESP 18; TEMP 36.4; O2SAT 97; BMI 34.0
--- NOTE | 2022-07-19 00:07 | XRR_ITS ---
PROCEDURE INFORMATION: Exam: XR Chest Exam date and time: 07/19/2022 12:28 AM Age: 61 years old Clinical indication: Dyspnea; Patient HX: Current every day smoker TECHNIQUE: Imaging protocol: Radiologic exam of the chest. Views: 1 view. COMPARISON: CR XR chest 1V portable [id number] 03/17/2022 3:37 PM FINDINGS: Lungs: No consolidation. 9 mm calcified granuloma left mid lung unchanged. Pleural spaces: Unremarkable. No pleural effusion. No pneumothorax. Heart/Mediastinum: Unremarkable. No cardiomegaly. Bones/joints: Unremarkable. XR/XR chest 1V portable [id number] IMPRESSION: No acute findings.
[2022-07-19 00:10] VITALS: BP 129/86; RESP 16; O2SAT 97
--- NOTE | 2022-07-19 00:17 | ECG_ITS ---
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 Measurements Intervals [place] Rate: 68 P: 49 NE: 229 QRS: 9 QRSD: 114 T: 49 QT: 383 QTc: 410 Interpretive Statements SINUS RHYTHM WITH FIRST DEGREE AV BLOCK PROBABLE INFERIOR MYOCARDIAL INFARCTION , PROBABLY OLD [35 ms Q WAVE IN II/aVF] Compared to ECG 03/17/2022 14:39:51 No significant changes Electronically Signed On 07-19-2022 10:34:18 [employer] by Negro Porras M.D. [email or web address] [email or web address] [email or web address] Device [email or web address].[email or web address].[employer]/store/NU/[id number] f
--- NOTE | 2022-07-19 00:17 | W.ED.SOB ---
HPI - SOB/Dyspnea General: Chief Complaint: Shortness of Breath/Dyspnea Stated Complaint: SOB Time Seen by Provider: 07/19/22 00:07 History of Present Illness: HPI Narrative: 61-year-old male patient comes in today with complaints of shortness of breath mainly with exertion. Patient states that over the last 1 to 2 years he has had some increasing shortness of breath. Patient appears nontoxic. Patient appears in no acute distress. Patient has been seeing a vp respiratory but is in the process of finding a new one due to the previous 1 moving away. Patient does see Dr. Hartman for cardiology. Patient was told he does not have COPD and they feel he does not have CHF. Patient also has seen Dr. Butterfield concerned that it may be related to his nasal drainage, but that was ruled out. Patient appears nontoxic. Patient reports no chest pain. No edema is noted in the lower extremities. Associated symptoms: Deny chest pain or fever(s) Review of Systems Const: Denies: fever(s) ENMT: Denies: nasal congestion Card: Denies: chest pain Resp: Reports: dyspnea GI: Denies: heartburn PFSH ED PFSH: Medical History Allergic rhinosinusitis Allergic rhinosinusitis Atherosclerosis of coronary artery Chronic bronchitis Chronic frontal sinusitis Chronic sinusitis Chronic vasomotor rhinitis Fracture of triquetrum of left wrist Hypercholesteremia Hypertension Nasal obstruction Nasal septal deformity Nasal turbinate hypertrophy Nicotine addiction Obstructive sleep apnea Type 2 diabetes mellitus Surgical History H/O sinus surgery History of sinus surgery Family History Brother , Age 51 Heart attack Social History Smoking and tobacco status: current every day smoker (1 ppd) cigarettes Packs smoked per day: 0.5 Years cigarettes smoked: 40 [ Other cigarette details: Hx of 1 PPD x 40 years] Smoking risk assessment/counseling performed?: Yes Alcohol intake: current Alcohol intake frequency: holidays/special occasions only Lives independently: Yes Household members: significant other Marital status: Single Current occupational status: disabled History of recent travel: No Current gender identity: Male Physical Exam Const: COMMON NORMALS: alert HENMT: COMMON NORMALS: normocephalic HEAD & SCALP: normocephalic Neck/C-Spine: COMMON NORMALS: full ROM, no lymphadenopathy and Thyroid normal THYROID: Thyroid normal Chest: COMMONS NORMALS: normal inspection of the chest Resp: COMMON NORMALS: normal respiratory effort and clear to auscultation bilaterally AUSCULTATION: clear to auscultation bilaterally Cardio: COMMON NORMALS: regular rate and regular rhythm RATE: regular rate RHYTHM: regular rhythm GI: COMMON NORMALS: Soft to palpation and non-tender PALPATION: Yes Soft to palpation Extremity: COMMON NORMALS: no pedal edema Neuro: SENSORIUM/ORIENTATION: Yes alert Skin: COMMON NORMALS: turgor normal GENERAL SKIN EXAM: turgor normal Course Vital Signs: Vital signs: Vital Signs Temperature 97.5 F L 07/19/22 00:04 Pulse Rate 72 07/19/22 00:04 Respiratory Rate 16 07/19/22 00:10 Blood Pressure 129/86 07/19/22 00:10 Pulse Oximetry 97 07/19/22 00:10 Oxygen Delivery Me thod 07/19/22 00:10 MDM - SOB/Dyspnea Medical Decision Making Patient comes in today for some persistent shortness of breath with increased episodes with exertion. On exam lungs were clear to auscultation, no swelling noted in the extremities. Abdomen soft nontender. Vital signs were normal. Differential diagnosis includes not limited to pneumonia, CHF, chronic lung disease, anxiety. Chest x-ray was stable without showing any signs of acute illness. CBC and CMP were normal except for some mild elevation alkaline phosphatase. BNP was 66. EKG was unremarkable. No signs of severe illness or injury was noted. Recommended patient follow-up with primary care for further evaluation and treatment and consideration of possible adverse drug effects or other likely causes for his recurrent dyspnea with exertion. Lab Data 07/19/22 00:15 07/19/22 00:15 Labs/Radiology: Radiology Impressions Chest X-Ray 07/19/22 00:07 IMPRESSION: No acute findings. Laboratory Results WBC 8.9 10^3/uL (4.0-10.0) 07/19/22 00:15 RBC 5.76 10^6/uL (4.1-5.3) H 07/19/22 00:15 Hgb 16.4 g/dL (11.7-16.6) 07/19/22 00:15 Hct 50.0 % (42.0-52.0) 07/19/22 00:15 MCV 86.8 fl (80-94) 07/19/22 00:15 MCH 28.5 pg (28.0-34.0) 07/19/22 00:15 MCHC 32.8 g/dL (30.0-36.0) 07/19/22 00:15 RDW 13.0 % (12.1-15.1) 07/19/22 00:15 Plt Count 324 10^3/cmm (130-400) 07/19/22 00:15 MPV 9.9 fL (7.4-10.4) 07/19/22 00:15 Neut % (Auto) 54.3 % 07/19/22 00:15 Lymph % (Auto) 34.9 % 07/19/22 00:15 [place] % (Auto) 9.1 % 07/19/22 00:15 Eos % (Auto) 1.0 % 07/19/22 00:15 Baso % (Auto) 0.5 % 07/19/22 00:15 Neut # (Auto) 4.81 10^3/uL (1.8-7.7) 07/19/22 00:15 Lymph # (Auto) 3.1 10^3/uL (0.8-4.8) 07/19/22 00:15 [place] # (Auto) 0.8 10^3/uL (0.2-0.9) 07/19/22 00:15 Eos # (Auto) 0.1 10^3/uL (0.0-0.8) 07/19/22 00:15 Baso # (Auto) 0.0 10^3/uL (0.0-0.1) 07/19/22 00:15 Nucleated RBC % (auto) 0 % 07/19/22 00:15 Nucleated RBCs # 0.0 /100WBC 07/19/22 00:15 Sodium 140 mmol/L (136-145) 07/19/22 00:15 Potassium 3.6 mmol/L (3.5-5.1) 07/19/22 00:15 Chloride 101 mmol/L (98-107) 07/19/22 00:15 Carbon Dioxide 28 mmol/L (22-29) 07/19/22 00:15 Anion Gap 14.6 (5-19) 07/19/22 00:15 BUN 11 mg/dL (6-20) 07/19/22 00:15 Creatinine 0.7 mg/dL (0.7-1.2) 07/19/22 00:15 GFR Calculation 115.4 mL/min (90-130) 07/19/22 00:15 Glucose 106 mg/dL (65-115) 07/19/22 00:15 Calculated Osmolality 290 mOsm/kg (285-295) 07/19/22 00:15 Calcium 9.1 mg/dL (8.5-10.5) 07/19/22 00:15 Total Bilirubin 0.5 mg/dL (0.15-1.2) 07/19/22 00:15 AST 16 U/L (0-40) 07/19/22 00:15 ALT 15 U/L (0-41) 07/19/22 00:15 Alkaline Phosphatase 142 U/L (40-130) H 07/19/22 00:15 NT-Pro-B Natriuret Pep 66 pg/mL (0-125) 07/19/22 00:15 Total Protein 6.9 g/dL (6.6-8.7) 07/19/22 00:15 Albumin 4.1 g/dL (3.5-5.2) 07/19/22 00:15 Globulin 2.8 g/dL (1.3-4.6) 07/19/22 00:15 Discharge Plan Discharge Patient Disposition: Home Clinical Impression: Chronic dyspnea Condition: Stable Prescriptions: No Action aspirin [Adult Aspirin Regimen] 81 mg tablet,delayed release (DR/EC) 81 mg PO QAM isosorbide mononitrate 60 mg tablet extended release 24 hr 60 mg PO DAILY Qty: 90 3RF atorvastatin 40 mg tablet 40 mg PO BEDTIME allopurinol 300 mg tablet 300 mg PO QAM hydrochlorothiazide 25 mg tablet 25 mg PO DAILY benazepril 20 mg tablet 20 mg PO DAILY (DME) Fast Form Cock up Splint See Rx Instructions .ROUTE .MEDSUPPLY Qty: 1 0RF Rx Instructions: As directed Spiriva Respimat 1.25 mcg/actuation mist 2 puff inhalation DAILY 30 Days Qty: 4 4RF budesonide-formoterol [Symbicort] 80-4.5 mcg/actuation HFA aerosol inhaler 2 puff INHALATION Q12H 30 Days Qty: 10.2 3RF albuterol sulfate 90 mcg/actuation HFA aerosol inhaler 2 inh INHALATION Q6H PRN (Reason: shortness of breath or wheezing) Qty: 6.7 0RF amlodipine 10 mg tablet 10 mg PO QAM loratadine 10 mg tablet 10 mg PO DAILY azelastine 137 mcg (0.1 %) aerosol,spray 2 spray INTRANASAL BID Rx Instructions: administer into each nostril nitroglycerin 0.4 mg tablet, sublingual 0.4 mg sublingual Q5M PRN (Reason: chest pain) Qty: 30 3RF Rx Instructions: do not exceed 3 doses per episode metoprolol tartrate 100 mg tablet 100 mg PO BID metformin 500 mg tablet 250 mg PO BID omeprazole 20 mg capsule,delayed release(DR/EC) 20 mg PO BID montelukast 10 mg tablet 10 mg PO BEDTIME Discharge Orders: Discharge ED (Routine); Ordered 07/19/22 Ordered By: Jaime Sánchez Referrals: Carlo Menon MD [Primary Care Provider] - Patient Instructions: Dyspnea (ED) Activity Restrictions/Additional Instructions: Continue routine medications as directed. Follow-up with primary care for further instruction and evaluation of medication list and consideration of adverse drug effects. ER for new concerns such as fever greater than 100.4, worse shortness of breath, or severe chest pain. Coding Level of Care Code ED Business Mgr for Eliana Boyce Exam Comprehensive
[2022-07-19 00:42] LABS: Basophils % 0.5 %; Eosinophils # 0.1 10^3/uL (0.0-0.8); Hemoglobin 16.4 g/dL (11.7-16.6); Lymphocytes # 3.1 10^3/uL (0.8-4.8); Lymphocytes % 34.9 %; Mean Corpuscular HGB Conc 32.8 g/dL (30.0-36.0); Mean Corpuscular Hemoglobin 28.5 pg (28.0-34.0); Mean Corpuscular Volume 86.8 fl (80-94); Mean Platelet Volume 9.9 fL (7.4-10.4); Monocytes # 0.8 10^3/uL (0.2-0.9); Monocytes % 9.1 %; Neutrophils # 4.81 10^3/uL (1.8-7.7); Neutrophils % 54.3 %; Nucleated Red Blood Cells % 0 %; Platelet Count 324 10^3/cmm (130-400); Red Blood Count 5.76 10^6/uL (4.1-5.3); White Blood Count 8.9 10^3/uL (4.0-10.0)
[2022-07-19 01:08] LABS: Alanine Aminotransferase 15 U/L (0-41); Albumin Level 4.1 g/dL (3.5-5.2); Alkaline Phosphatase 142 U/L (40-130); Anion Gap 14.6 (5-19); Aspartate Amino Transferase 16 U/L (0-40); Blood Urea Nitrogen 11 mg/dL (6-20); Calcium 9.1 mg/dL (8.5-10.5); Carbon Dioxide 28 mmol/L (22-29); Chloride 101 mmol/L (98-107); Globulin 2.8 g/dL (1.3-4.6); Glomerular Filtration Rate 115.4 mL/min (90-130); Glucose 106 mg/dL (65-115); NT Pro B Type Natriuretic Pept 66 pg/mL (0-125); Osmolality Calculated 290 mOsm/kg (285-295); Potassium 3.6 mmol/L (3.5-5.1); Sodium 140 mmol/L (136-145); Total Bilirubin 0.5 mg/dL (0.15-1.2); Total Protein 6.9 g/dL (6.6-8.7)
== END 2022-07-19 01:32 | disposition home or self-care (01) ==
PROVIDERS: Emergency Provider Nurse Practitioner Family; PCP Family Medicine
DX: R06.09 Other forms of dyspnea (principal); Z79.82 Long term (current) use of aspirin; Z79.84 Long term (current) use of oral hypoglycemic drugs; I25.10 Atherosclerotic heart disease of native coronary artery without angina pectoris; I10 Essential (primary) hypertension; E11.9 Type 2 diabetes mellitus without complications; F17.210 Nicotine dependence, cigarettes, uncomplicated
CPT/HCPCS: 71045; 80053; 83880; 85025; 93005; 99285

== ENCOUNTER 2023-09-12 18:16 | Emergency (ER) | payer MEDICARE, MEDICAID, SELFPAY ==
--- NOTE | 2023-09-12 18:18 | XRR_ITS ---
PROCEDURE INFORMATION: Exam: XR Chest Exam date and time: 09/12/2023 6:25 PM Age: 62 years old Clinical indication: Chest wall pain; Additional info: Cp TECHNIQUE: Imaging protocol: Radiologic exam of the chest. Views: 1 view. COMPARISON: CR XR chest 1V portable [id number] 07/19/2022 12:28 AM FINDINGS: Lungs: No focal consolidation. Calcified granuloma in the peripheral lung. Pleural spaces: No evidence of pneumothorax. No evidence of pleural effusion. Heart/Mediastinum: Cardiomediastinal silhouette is within normal limits. Bones/joints: No evidence of acute osseous abnormality. XR/XR chest 1V portable [id number] IMPRESSION: 1. No acute cardiopulmonary abnormality.
--- NOTE | 2023-09-12 18:20 | ECG_ITS ---
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 Measurements Intervals [place] Rate: 81 P: 31 MI: 205 QRS: -10 QRSD: 122 T: 27 QT: 376 QTc: 439 Interpretive Statements SINUS RHYTHM INFERIOR MYOCARDIAL INFARCTION , PROBABLY OLD [40+ ms Q WAVE AND/OR ST/T ABNORMALITY IN II/aVF] Compared to ECG 07/19/2022 00:02:23 First degree AV block no longer present Myocardial infarct finding still present Electronically Signed On 09-12-2023 21:50:01 CDT by Negro Porras M.D. [email or web address]/store/[id number]
[2023-09-12 18:22] VITALS: BP 127/80; PULSE 82; RESP 20; TEMP 36.8; O2SAT 91
--- NOTE | 2023-09-12 18:32 | ED_ITS ---
HPI - Chest Pain 2 General: Chief Complaint: Chest Pain Stated Complaint: Chest pain Time Seen by Provider: 09/12/23 18:17 Source: patient and EMS Mode of arrival: EMS Limitations: no limitations History of Present Illness: 62-year-old male who is here by EMS with chest pain. He states started having some pain this morning states it was epigastric mainly and into his chest been a sharp pain states pain is currently subsided denies any shortness of breath denies any nausea or vomiting. He denies any fevers or worsening factors Associated symptoms: Deny abdominal pain, dyspnea, fever(s), nausea or vomiting Review of Systems 2 Const: Denies: fever(s), chills, body aches or change in appetite ENMT: Denies: throat pain or dental pain Card: Reports: chest pain Resp: Denies: dyspnea GI: Denies: abdominal pain, nausea, vomiting or diarrhea : Denies: dysuria Musc: Denies: neck pain or back pain Skin/Breast: Denies: rash Neuro: Denies: headache(s) PFSH ED 2 PFSH: Medical History Atherosclerosis of coronary artery Type 2 diabetes mellitus Chronic frontal sinusitis Chronic vasomotor rhinitis Fracture of triquetrum of left wrist Obstructive sleep apnea Allergic rhinosinusitis Nicotine addiction Chronic bronchitis Allergic rhinosinusitis Nasal obstruction Nasal turbinate hypertrophy Nasal septal deformity Chronic sinusitis Hypertension Hypercholesteremia Surgical History History of sinus surgery H/O sinus surgery Family History Brother , Age 51 Heart attack Social History Smoking and tobacco/nicotine status: current every day tobacco/nicotine user (1 ppd) cigarettes Packs smoked per day: 0.5 Years cigarettes smoked: 40 [ Other cigarette details: Hx of 1 PPD x 40 years] Alcohol intake: current Alcohol intake frequency: holidays/special occasions only Substance/Drug Use: never Lives independently: Yes Household members: significant other Marital status: Single Current occupational status: disabled Do you think of yourself as: Straight/Heterosexual Current gender identity: Male Physical Exam 2 Const: COMMON NORMALS: no acute distress, patient oriented x3 and healthy appearing HENMT: COMMON NORMALS: normocephalic and atraumatic HEAD & SCALP: n ormocephalic and atraumatic Eye: COMMON NORMALS: Equal, round and reactive pupils present and EOMs intact bilaterally PUPIL: Yes Equal, round and reactive pupils present Neck/C-Spine: COMMON NORMALS: full ROM and supple Chest: COMMONS NORMALS: normal inspection of the chest and normal palpation of entire chest wall Resp: COMMON NORMALS: normal respiratory effort, No retractions, No use of accessory muscles and clear to auscultation bilaterally AUSCULTATION: clear to auscultation bilaterally Cardio: COMMON NORMALS: regular rate, regular rhythm and No murmurs present (Cardio) RATE: regular rate RHYTHM: regular rhythm GI: COMMON NORMALS: Normal to inspection, nondistended, normoactive bowel sounds present, Soft to palpation, non-tender and no masses PALPATION: Yes Soft to palpation Extremity: COMMON NORMALS: normal to inspection and full ROM Neuro: COMMON NORMALS: patient oriented x3, moves all extremities and no focal motor deficits Psych: COMMON NORMALS: mental status grossly normal, Normal thought process present and cooperative THOUGHT PROCESS: Normal thought process present Skin: COMMON NORMALS: no rashes or lesions noted and no wounds GENERAL SKIN EXAM: no rashes or lesions noted Course 2 Vital Signs: Vital signs: Vital Signs Temperature 98.2 F 09/12/23 18:22 Pulse Rate 78 09/12/23 18:40 Respiratory Rate 16 09/12/23 18:40 Blood Pressure 123/75 09/12/23 18:40 Pulse Oximetry 92 09/12/23 18:40 Oxygen Delivery Me thod Room Air 09/12/23 18:40 MDM - Chest Pain Medical Decision Making Patient presents for chest pains atypical in nature seems more gastric she states pain starts in her abdomen and radiates up his chest his troponins here are normal EKG and x-ray is normal he is no signs of dissection or pulmonary embolism he is to follow-up with his peer specialist return if worsening he understands agrees to plan. Medical Records I reviewed the patient's medical records. Lab Data I reviewed the patient's lab results. 09/12/23 18:05 09/12/23 18:05 Radiology Impressions Chest X-Ray 09/12/23 18:18 IMPRESSION: 1. No acute cardiopulmonary abnormality. Laboratory Results WBC 10.52 10^3/uL (3.29-11.43) 09/12/23 18:05 RBC 5.26 10^6/uL (3.85-5.65) 09/12/23 18:05 Hgb 15.90 g/dL (11.27-16.99) 09/12/23 18:05 Hct 47.1 % (37-53) 09/12/23 18:05 MCV 89.5 fl (82-101) 09/12/23 18:05 MCH 30.2 pg (27-33) 09/12/23 18:05 MCHC 33.8 g/dL (30-55) 09/12/23 18:05 RDW 13.6 % (12.1-15.1) 09/12/23 18:05 Plt Count 306 10^3/cmm (157-399) 09/12/23 18:05 MPV 10.0 fL (7.4-10.4) 09/12/23 18:05 Neut % (Auto) 63.4 % 09/12/23 18:05 Lymph % (Auto) 27.4 % 09/12/23 18:05 [place] % (Auto) 7.9 % 09/12/23 18:05 Eos % (Auto) 0.6 % 09/12/23 18:05 Baso % (Auto) 0.4 % 09/12/23 18:05 Neut # (Auto) 6.68 10^3/uL (1.8-7.7) 09/12/23 18:05 Lymph # (Auto) 2.9 10^3/uL (0.8-4.8) 09/12/23 18:05 [place] # (Auto) 0.8 10^3/uL (0.2-0.9) 09/12/23 18:05 Eos # (Auto) 0.1 10^3/uL (0.0-0.8) 09/12/23 18:05 Baso # (Auto) 0.0 10^3/uL (0.0-0.1) 09/12/23 18:05 Nucleated RBC % (auto) 0 % 09/12/23 18:05 Nucleated RBCs # 0.0 /100WBC 09/12/23 18:05 Sodium 143 mmol/L (136-145) 09/12/23 18:05 Potassium 3.6 mmol/L (3.5-5.1) 09/12/23 18:05 Chloride 103 mmol/L (98-107) 09/12/23 18:05 Carbon Dioxide 26 mmol/L (22-29) 09/12/23 18:05 Anion Gap 17.6 (5-19) 09/12/23 18:05 BUN 10 mg/dL (8-23) 09/12/23 18:05 Creatinine 0.8 mg/dL (0.7-1.2) 09/12/23 18:05 GFR Calculation 98.6 mL/min (90-130) 09/12/23 18:05 Glucose 111 mg/dL (65-115) 09/12/23 18:05 Calculated Osmolality 296 mOsm/kg (285-295) H 09/12/23 18:05 Calcium 9.2 mg/dL (8.5-10.5) 09/12/23 18:05 Total Bilirubin 0.6 mg/dL (0.15-1.2) 09/12/23 18:05 AST 16 U/L (0-40) 09/12/23 18:05 ALT 14 U/L (0-41) 09/12/23 18:05 Alkaline Phosphatase 128 U/L (40-130) 09/12/23 18:05 Troponin T Baseline 9 ng/L (0-15) 09/12/23 18:05 Troponin T 120 Minute 13.62 ng/L (0-15) 09/12/23 19:56 Delta Troponin T 4.62 ABS# (0-10) 09/12/23 19:56 Total Protein 6.6 g/dL (6.6-8.7) 09/12/23 18:05 Albumin 4.0 g/dL (3.5-5.2) 09/12/23 18:05 Globulin 2.6 g/dL (1.3-4.6) 09/12/23 18:05 Lipase 21 U/L (13-60) 09/12/23 18:05 All radiology interpretation(s) finalized by discharge EKG Data EKG 1: I personally reviewed and interpreted this EKG as follows: EKG interpretation date: 09/12/23 EKG interpretation time: 18:20 Interpretation: nsr hr [address] or t wave abnormalities qrs 122 qtc 414 EKG 2: I personally reviewed and interpreted this EKG as follows: EKG interpretation date: 09/12/23 EKG interpretation time: 20:43 Interpretation: nsr hr [address] or t wave abnormalities qrs 122 qtc 413 Discharge Plan Discharge Patient Disposition: Home Clinical Impression: Chest pain Condition: Stable Prescriptions: No Action aspirin [Adult Aspirin Regimen] 81 mg tablet,delayed release (DR/EC) 81 mg PO QAM atorvastatin 40 mg tablet 40 mg PO BEDTIME allopurinol 300 mg tablet 300 mg PO QAM hydrochlorothiazide 25 mg tablet 25 mg PO DAILY benazepril 20 mg tablet 20 mg PO DAILY (DME) Fast Form Cock up Splint See Rx Instructions .ROUTE .MEDSUPPLY Qty: 1 0RF Rx Instructions: As directed Spiriva Respimat 1.25 mcg/actuation mist 2 puff inhalation DAILY 30 Days Qty: 4 4RF budesonide-formoterol [Symbicort] 80-4.5 mcg/actuation HFA aerosol inhaler 2 puff INHALATION Q12H 30 Days Qty: 10.2 3RF isosorbide mononitrate 60 mg tablet extended release 24 hr 60 mg PO DAILY Qty: 60 0RF Rx Instructions: Needs appt for future refills albuterol sulfate 90 mcg/actuation HFA aerosol inhaler 2 inh INHALATION Q6H PRN (Reason: shortness of breath or wheezing) Qty: 6.7 0RF amlodipine 10 mg tablet 10 mg PO QAM loratadine 10 mg tablet 10 mg PO DAILY azelastine 137 mcg (0.1 %) aerosol,spray 2 spray INTRANASAL BID Rx Instructions: administer into each nostril nitroglycerin 0.4 mg tablet, sublingual 0.4 mg sublingual Q5M PRN (Reason: chest pain) Qty: 30 3RF Rx Instructions: do not exceed 3 doses per episode metoprolol tartrate 100 mg tablet 100 mg PO BID metformin 500 mg tablet 250 mg PO BID omeprazole 20 mg capsule,delayed release(DR/EC) 20 mg PO BID montelukast 10 mg tablet 10 mg PO BEDTIME Discharge Orders: Discharge ED (Routine); Ordered 09/12/23 Ordered By: Mariah Simmons Referrals: Senait Hartman MD [Physician] - 1-3 days Emma Uribe DO [Primary Care Provider] - Discharge Diet: Advance as tolerated Discharge Activity: Resume usual activity Patient Instructions: Chest Pain (ED) Coding Level of Care Code ED Acquisition Professional for Eliana Boyce
[2023-09-12] MEDS: lidocaine 2% viscous 15 ML, aluminum-mag hydrox-simethicon 30 ML, sucralfate oral liq 1 GM PO (18:35)
[2023-09-12 18:40] VITALS: BP 123/75; PULSE 78; RESP 16; O2SAT 92
[2023-09-12 18:53] LABS: Basophils % 0.4 %; Eosinophils # 0.1 10^3/uL (0.0-0.8); Eosinophils % 0.6 %; Hematocrit 47.1 % (37-53); Lymphocytes # 2.9 10^3/uL (0.8-4.8); Lymphocytes % 27.4 %; Mean Corpuscular HGB Conc 33.8 g/dL (30-55); Mean Corpuscular Hemoglobin 30.2 pg (27-33); Mean Corpuscular Volume 89.5 fl (82-101); Monocytes # 0.8 10^3/uL (0.2-0.9); Monocytes % 7.9 %; Neutrophils # 6.68 10^3/uL (1.8-7.7); Neutrophils % 63.4 %; Nucleated Red Blood Cells % 0 %; Platelet Count 306 10^3/cmm (157-399); Red Blood Count 5.26 10^6/uL (3.85-5.65); Red Cell Distribution Width 13.6 % (12.1-15.1); White Blood Count 10.52 10^3/uL (3.29-11.43)
[2023-09-12 19:07] LABS: Troponin(5th) Baseline 9 ng/L (0-15)
[2023-09-12 19:10] LABS: Alanine Aminotransferase 14 U/L (0-41); Alkaline Phosphatase 128 U/L (40-130); Blood Urea Nitrogen 10 mg/dL (8-23); Calcium 9.2 mg/dL (8.5-10.5); Carbon Dioxide 26 mmol/L (22-29); Chloride 103 mmol/L (98-107); Creatinine Clr Calc Pharmacy 123.8322; Globulin 2.6 g/dL (1.3-4.6); Glomerular Filtration Rate 98.6 mL/min (90-130); Glucose 111 mg/dL (65-115); Lipase 21 U/L (13-60); Osmolality Calculated 296 mOsm/kg (285-295); Sodium 143 mmol/L (136-145); Total Bilirubin 0.6 mg/dL (0.15-1.2); Total Protein 6.6 g/dL (6.6-8.7)
[2023-09-12 19:16] LABS: Anion Gap 17.6 (5-19); Aspartate Amino Transferase 16 U/L (0-40); Potassium 3.6 mmol/L (3.5-5.1)
[2023-09-12 20:24] LABS: Troponin 5 2HR 13.62 ng/L (0-15); Troponin 5 2HR Delta 4.62 ABS# (0-10)
--- NOTE | 2023-09-12 20:43 | ECG_ITS ---
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 Measurements Intervals [place] Rate: 72 P: 37 ME: 214 QRS: -6 QRSD: 122 T: 18 QT: 389 QTc: 426 Interpretive Statements SINUS RHYTHM WITH FIRST DEGREE AV BLOCK MINIMAL VOLTAGE CRITERIA FOR LVH, CONSIDER NORMAL VARIANT [MEETS CRITERIA IN ONE OF: R(aVL), S(V1), R(V5), R(V5/V6)+S(V1)] INFERIOR MYOCARDIAL INFARCTION , PROBABLY OLD [40+ ms Q WAVE AND/OR ST/T ABNORMALITY IN II/aVF] Compared to ECG 09/12/2023 18:20:26 First degree AV block now present Myocardial infarct finding still present Electronically Signed On 09-12-2023 21:52:08 CDT by Negro Porras M.D. [id number]
[2023-09-12 21:37] VITALS: BP 129/79; O2SAT 97
== END 2023-09-12 21:38 | disposition home or self-care (01) ==
PROVIDERS: Emergency Provider Emergency Medicine; PCP Family Medicine
DX: R07.9 Chest pain, unspecified (principal); Z79.82 Long term (current) use of aspirin; Z79.84 Long term (current) use of oral hypoglycemic drugs; F17.210 Nicotine dependence, cigarettes, uncomplicated; I25.10 Atherosclerotic heart disease of native coronary artery without angina pectoris; E11.9 Type 2 diabetes mellitus without complications; I10 Essential (primary) hypertension
CPT/HCPCS: 36415; 71045; 80053; 83690; 84484; 85025; 93005; 99285

== ENCOUNTER → 2023-09-28 14:03 | Outpatient (BNVA) | payer MEDICARE, MEDICAID, SELFPAY | PROVIDERS: PCP Family Medicine; Visit Provider Internal Medicine Cardiovascular Disease | DX: I25.118 Atherosclerotic heart disease of native coronary artery with other forms of angina pectoris (principal); I10 Essential (primary) hypertension; E78.5 Hyperlipidemia, unspecified; E11.9 Type 2 diabetes mellitus without complications; Z79.4 Long term (current) use of insulin; F17.210 Nicotine dependence, cigarettes, uncomplicated | CPT/HCPCS: 99214 ==

== ENCOUNTER → 2023-12-01 09:33 | Outpatient (BNVA) | payer MEDICARE, MEDICAID, SELFPAY | PROVIDERS: PCP Family Medicine; Visit Provider Internal Medicine Cardiovascular Disease | DX: I25.118 Atherosclerotic heart disease of native coronary artery with other forms of angina pectoris (principal); I10 Essential (primary) hypertension; F17.200 Nicotine dependence, unspecified, uncomplicated; E78.5 Hyperlipidemia, unspecified; E11.9 Type 2 diabetes mellitus without complications; Z79.4 Long term (current) use of insulin | CPT/HCPCS: 99214 ==

== ENCOUNTER → 2023-12-05 15:58 | Outpatient (BNVA) | payer MEDICARE, MEDICAID, SELFPAY | PROVIDERS: PCP Family Medicine; Visit Provider Nurse Practitioner Family | DX: E11.9 Type 2 diabetes mellitus without complications (principal); Z79.4 Long term (current) use of insulin; M10.9 Gout, unspecified | CPT/HCPCS: 80053; 80061; 82607; 83036; 84443; 84550; 85025 ==

== ENCOUNTER 2024-04-30 08:48 | Outpatient (CLI) | payer MEDICARE, MEDICAID, SELFPAY ==
--- NOTE | 2024-04-30 08:53 | CT_ITS ---
WS: [id number] LDCT LUNG CANCER SCREENING HISTORY: NICOTINE DEPENDENCE TECHNIQUE: Axial imaging performed from the apices to 1 cm below the costophrenic angles. Coronal and sagittal reformats are submitted with axial MIP series. All CT scans at [facility] use at least one of these dose optimization techniques: automated exposure control; mA and/or kV adjustment per patient size (includes targeted exams where dose is matched to clinical indication); or iterativ e reconstruction. DLP: 132.79 mGy.cm DIvol: Mean CTDIvol: 3.00 (mGy) COMPARISON: 01/16/2021 Diagnostic quality: Satisfactory Lungs: Mild pulmonary hyperinflation. Benign calcified granuloma LEFT lower lobe is unchanged. No pul monary mass or nodule. No endobronchial lesions. Tiny pleural tags at the lung apices. Heart: Normal size heart with no pericardial effusion.. Other findings: Small hiatal hernia. Hepatic granuloma. No adrenal mass. Mild thoracic and suprarenal aortic calcifications. There are a few additional small mediastinal and hilar lymph nodes. Some of t hese lymph nodes contain calcification. CT/CT lung screening [id number] IMPRESSION: LUNG-RADS: 2-Benign Appearance or Behavior FOLLOW UP: 12 Month: Continue annual screening with LDCT OTHER FINDINGS (S MODIFIER): None.
== END 2024-04-30 08:49 | disposition home or self-care (01) ==
LOC: RAD 08:49
PROVIDERS: PCP Nurse Practitioner Family; Visit Provider Nurse Practitioner Family
DX: Z12.2 Encounter for screening for malignant neoplasm of respiratory organs (principal); F17.210 Nicotine dependence, cigarettes, uncomplicated; J84.10 Pulmonary fibrosis, unspecified; K44.9 Diaphragmatic hernia without obstruction or gangrene; K75.3 Granulomatous hepatitis, not elsewhere classified
CPT/HCPCS: 71271

== ENCOUNTER 2024-06-23 23:25 | Emergency (ER) | payer MEDICARE, MEDICAID, SELFPAY ==
[2024-06-23 23:26] VITALS: BP 170/97; PULSE 65; RESP 20; TEMP 36.6; O2SAT 96; BMI 22.9
--- NOTE | 2024-06-23 23:38 | ECG_ITS ---
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 Measurements Intervals [place] Rate: 58 P: 22 VT: 226 QRS: 15 QRSD: 113 T: 65 QT: 400 QTc: 394 Interpretive Statements SINUS BRADYCARDIA WITH FIRST DEGREE AV BLOCK MODERATE INTRAVENTRICULAR CONDUCTION DELAY [110+ ms QRS DURATION] NONSPECIFIC T-WAVE ABNORMALITY Compared to ECG 09/12/2023 20:43:54 Intraventricular conduction delay now present T-wave abnormality now present Sinus rhythm no longer present Myocardial infarct finding no longer present Electronically Signed On 06-24-2024 13:30:58 LEVER MILLER by Senait Hartman M.D. [id number]
--- NOTE | 2024-06-23 23:40 | ED_ITS ---
HPI - Chest Pain 2 General: Chief Complaint: Chest Pain Stated Complaint: CP Time Seen by Provider: 06/23/24 23:34 History of Present Illness: 63 year old male patient who tells me he 's had a heart attack in the past period he has not had any previous intervention such as a stent, etcetera. He's been having chest pain intermittently for the past day or two. Pain is in the central chest, radiates down his left arm. He's been weak and dizzy he says as well at times. Some shortness of breath. No vomiting. No fever. He didn't eyes cough or sputum production. He was brought in by EMS. Nitroglycerin in the ambulance did not relieve his chest discomfort completely. He had aspirin as well. He states that his blood pressure has been up and down the last couple of days. Related Data Home Medications Medication Instructions Recorded Confirmed aspirin 81 mg tablet,delayed 81 mg PO QAM 08/14/19 03/27/24 release (Adult Aspirin Regimen) azelastine 137 mcg (0.1 %) nasal 2 spray intranasal BID 01/17/21 03/27/24 spray montelukast 10 mg tablet 10 mg PO BEDTIME 03/17/22 03/27/24 Previous Rx's Medication Instructions Recorded albuterol sulfate 90 mcg/actuation 2 inh inhalation Q6H PRN shortness 07/13/19 aerosol inhaler of breath or wheezing #6.7 grams nitroglycerin 0.4 mg sublingual 0.4 mg sublingual Q5M PRN chest 01/18/21 tablet pain #30 tabs budesonide-formoterol HFA 80 2 puff inhalation Q12H 30 days 01/11/22 mcg-4.5 mcg/actuation aerosol #10.2 grams inhaler (Symbicort) tiotropium bromide 1.25 2 puff inhalation DAILY 30 days #4 01/11/22 mcg/actuation mist for inhalation grams (Spiriva Respimat) atorvastatin 40 mg tablet 40 mg PO BEDTIME #30 tabs 01/20/24 fluticasone propionate 50 1 spray intranasal DAILY #16 grams 02/03/24 mcg/actuation nasal spray,suspension (Flonase Allergy Relief) metoprolol tartrate 50 mg tablet 50 mg PO BID #180 tabs 02/07/24 amoxicillin 875 mg-potassium 1 tab PO BID 10 days #20 tabs 02/08/24 clavulanate 125 mg tablet loratadine 10 mg tablet 10 mg PO DAILY #90 tabs 02/08/24 levofloxacin 500 mg tablet 500 mg PO DAILY #7 tabs 03/27/24 promethazine-DM 6.25 mg-15 mg/5 mL 5 ml PO Q6H PRN cough #180 mL 03/27/24 oral syrup albuterol sulfate 2.5 mg/3 mL See Rx Instructions .Route 04/04/24 (0.083 %) solution for nebulization .COMPLEX #180 mL allopurinol 300 mg tablet See Rx Instructions .Route 05/09/24 .COMPLEX #30 tabs isosorbide mononitrate 60 mg See Rx Instructions .Route 05/09/24 tablet,extended release 24 hr .COMPLEX #30 tabs metformin 500 mg tablet 500 mg PO DAILY #90 tabs 05/09/24 omeprazole 20 mg capsule,delayed See Rx Instructions .Route 05/09/24 release .COMPLEX #60 caps amlodipine 10 mg tablet 10 mg PO QAM #90 tabs 05/15/24 benazepril 20 mg tablet 20 mg PO DAILY #90 tabs 05/15/24 hydrochlorothiazide 25 mg tablet 25 mg PO DAILY #90 tabs 05/15/24 meclizine 25 mg tablet 25 mg PO TID PRN dizziness #30 tabs 06/24/24 methylprednisolone 4 mg tablets in See Rx Instructions PO PER PKG DIR 06/24/24 a dose pack (Medrol (Cameron)) #21 ea Allergies Allergy/AdvReac Type Severity Reaction Status Date / Time No Known Allergies Allergy Verified 06/24/24 07:56 PFS ED 2 PFSH: Medical History Chronic bronchitis Atherosclerosis of coronary artery Type 2 diabetes mellitus Chronic frontal sinusitis Chronic vasomotor rhinitis Fracture of triquetrum of left wrist Obstructive sleep apnea Allergic rhinosinusitis Nicotine addiction Allergic rhinosinusitis Nasal obstruction Nasal turbinate hypertrophy Nasal septal deformity Chronic sinusitis Hypertension Hypercholesteremia Surgical History History of sinus surgery H/O sinus surgery Family History Brother , Age 51 Heart attack Social History Smoking and tobacco/nicotine status: never used tobacco/nicotine Alcohol intake: current Alcohol intake frequency: holidays/special occasions only Substance/Drug Use: never Lives independently: Yes Household members: significant other Marital status: Single Current occupational status: disabled Do you think of yourself as: Straight/Heterosexual Current gender identity: Male Physical Exam 2 Const: COMMON NORMALS: no acute distress GENERAL APPEARANCE: cooperative; not ill appearing and not frail appearing HENMT: COMMON NORMALS: normocephalic, atraumatic and Normal external nose present HEAD & SCALP: normocephalic and atraumatic FACE & SINUS: normal facial exam and face symmetric NOSE: Normal external nose present Eye: COMMON NORMALS: Equal, round and reactive pupils present and EOMs intact bilaterally PUPIL: Yes Equal, round and reactive pupils present Neck/C-Spine: GENERAL: Yes trachea midline Chest: CHEST: Yes Symmetrical chest wall rise and Yes tenderness (anterior) Resp: COMMON NORMALS: normal respiratory effort, No retractions, No use of accessory muscles and clear to auscultation bilaterally AUSCULTATION: clear to auscultation bilaterally Cardio: COMMON NORMALS: regular rate and regular rhythm RATE: regular rate RHYTHM: regular rhythm GI: COMMON NORMALS: Normal to inspection, nondistended, normoactive bowel sounds present Extremity: COMMON NORMALS: no pedal edema Neuro: REA COMA SCALE: document GCS findings Rea coma scale eye opening: Spontaneous [place] coma scale verbal response: Orientated [place] coma scale motor response: Obey commands Rea coma scale total score: 15 S ENSORY EXAM: Yes extremities (intact) Psych: COMMON NORMALS: speech normal SPEECH: Yes normal speech Skin: COMMON NORMALS: no rashes or lesions noted GENERAL SKIN EXAM: no rashes or lesions noted Course 2 Vital Signs: Vital signs: Vital Signs Temperature 97.9 F 06/23/24 23:26 Pulse Rate 87 06/24/24 02:01 Respiratory Rate 18 06/24/24 02:01 Blood Pressure 150/87 06/24/24 02:01 Pulse Oximetry 98 06/24/24 02:01 Oxygen Delivery Me thod Room Air 06/23/24 23:26 MDM - Chest Pain Medical Decision Making The patient was given morphine, nitroglycerin paste. His blood pressure is improved, down to 150 / 87. His oxygen saturations are normal. other vitals are stable. he is afebrile. His CBC is normal. his chest X-ray is non acute. BMP is not remarkable. Liver enzymes are normal. his delta troponin stayed normal at 0 in two hours. His BNP is 76. His pain is reproducible to some degree on exam. He does have a diagnosis of chronic bronchitis. He'll be treated with a tapering dose of steroid for chest wall pain. close outpatient follow up. Will return for new or worsening symptoms. Lab Data 06/23/24 23:10 06/23/24 23:10 Radiology Impressions Chest X-Ray 06/23/24 23:41 IMPRESSION: No acute findings. Laboratory Results WBC 7.70 10^3/uL (3.29-11.43) 06/23/24 23:10 RBC 5.69 10^6/uL (3.85-5.65) H 06/23/24 23:10 Hgb 16.50 g/dL (11.27-16.99) 06/23/24 23:10 Hct 49.5 % (37-53) 06/23/24 23:10 MCV 87.0 fl (82-101) 06/23/24 23:10 MCH 29.0 pg (27-33) 06/23/24 23:10 MCHC 33.3 g/dL (30-55) 06/23/24 23:10 RDW 13.4 % (12.1-15.1) 06/23/24 23:10 Plt Count 351 10^3/cmm (157-399) 06/23/24 23:10 MPV 10.4 fL (7.4-10.4) 06/23/24 23:10 Neut % (Auto) 65.7 % 06/23/24 23:10 Lymph % (Auto) 22.9 % 06/23/24 23:10 [place] % (Auto) 9.9 % 06/23/24 23:10 Eos % (Auto) 0.9 % 06/23/24 23:10 Baso % (Auto) 0.5 % 06/23/24 23:10 Neut # (Auto) 5.06 10^3/uL (1.8-7.7) 06/23/24 23:10 Lymph # (Auto) 1.8 10^3/uL (0.8-4.8) 06/23/24 23:10 [place] # (Auto) 0.8 10^3/uL (0.2-0.9) 06/23/24 23:10 Eos # (Auto) 0.1 10^3/uL (0.0-0.8) 06/23/24 23:10 Baso # (Auto) 0.0 10^3/uL (0.0-0.1) 06/23/24 23:10 Nucleated RBC % (auto) 0 % 06/23/24 23:10 Nucleated RBCs # 0.0 /100WBC 06/23/24 23:10 PT 12.60 SECONDS (12.1-14.9) 06/23/24 23:10 INR 0.88 (0.8-1.2) 06/23/24 23:10 APTT 30.8 SECONDS (23.9-36.7) 06/23/24 23:10 Sodium 140 mmol/L (136-145) 06/23/24 23:10 Potassium 3.7 mmol/L (3.5-5.1) 06/23/24 23:10 Chloride 91 mmol/L (98-107) L 06/23/24 23:10 Carbon Dioxide 31 mmol/L (22-29) H 06/23/24 23:10 Anion Gap 21.7 (5-19) H 06/23/24 23:10 BUN 7 mg/dL (8-23) L 06/23/24 23:10 Creatinine 0.8 mg/dL (0.7-1.2) 06/23/24 23:10 GFR Calculation 98.3 mL/min (90-130) 06/23/24 23:10 Glucose 127 mg/dL (65-115) H 06/23/24 23:10 Calculated Osmolality 290 mOsm/kg (285-295) 06/23/24 23:10 Calcium 9.1 mg/dL (8.5-10.5) 06/23/24 23:10 Total Bilirubin 0.6 mg/dL (0.15-1.2) 06/23/24 23:10 AST 14 U/L (0-40) 06/23/24 23:10 ALT 14 U/L (0-41) 06/23/24 23:10 Alkaline Phosphatase 146 U/L (40-130) H 06/23/24 23:10 Troponin T Baseline 11 ng/L (0-15) 06/23/24 23:10 Troponin T 120 Minute 9.05 ng/L (0-15) 06/24/24 01:00 Delta Troponin T -1.95 ABS# (0-10) L 06/24/24 01:00 NT-Pro-B Natriuret Pep 76 pg/mL (0-125) 06/23/24 23:10 Total Protein 6.5 g/dL (6.6-8.7) L 06/23/24 23:10 Albumin 4.2 g/dL (3.5-5.2) 06/23/24 23:10 Globulin 2.3 g/dL (1.3-4.6) 06/23/24 23:10 Coronavirus (PCR) Negative (Negative) 06/24/24 00:35 Influenza A (PCR) Negative (Negative) 06/24/24 00:35 Influenza Type B (PCR) Negative (Negative) 06/24/24 00:35 RSV (PCR) Negative (Negative) 06/24/24 00:35 All radiology interpretation(s) finalized by discharge Discharge Plan Discharge Patient Disposition: Home Clinical Impression: Chest pain Qualifiers: Chest pain type: other chest pain Qualified Code(s): R07.89 - Other chest pain Chronic bronchitis Qualifiers: Chronic bronchitis type: unspecified Qualified Code(s): J42 - Unspecified chronic bronchitis Hypertension Qualifiers: Hypertension type: essential hypertension Qualified Code(s): I10 - Essential (primary) hypertension Condition: Stable Prescriptions: Continued methylprednisolone [Medrol (Cameron)] 4 mg tablets,dose pack See Rx Instructions PO PER PKG DIR Qty: 21 0RF Rx Instructions: PO PER PKG DIR No Action aspirin [Adult Aspirin Regimen] 81 mg tablet,delayed release (DR/EC) 81 mg PO QAM amoxicillin-pot clavulanate 875-125 mg tablet 1 tab PO BID 10 Days Qty: 20 0RF loratadine 10 mg tablet 10 mg PO DAILY Qty: 90 3RF promethazine-DM 6.25-15 mg/5 mL syrup 5 ml PO Q6H PRN (Reason: cough) Qty: 180 0RF levofloxacin 500 mg tablet 500 mg PO DAILY Qty: 7 0RF Spiriva Respimat 1.25 mcg/actuation mist 2 puff inhalation DAILY 30 Days Qty: 4 4RF budesonide-formoterol [Symbicort] 80-4.5 mcg/actuation HFA aerosol inhaler 2 puff INHALATION Q12H 30 Days Qty: 10.2 3RF atorvastatin 40 mg tablet 40 mg PO BEDTIME Qty: 30 3RF fluticasone propionate [Flonase Allergy Relief] 50 mcg/actuation spray,suspension 1 spray intranasal DAILY Qty: 16 0RF Rx Instructions: administer into each nostril metoprolol tartrate 50 mg tablet 50 mg PO BID Qty: 180 1RF albuterol sulfate 2.5 mg /3 mL (0.083 %) solution for nebulization See Rx Instructions .ROUTE .COMPLEX Qty: 180 0RF Dose Instruction: Inhale ONE vial via NEBULIZER FOUR TIMES DAILY NEEDED FOR SHORTNESS OF BREATH OR FOR WHEEZING Rx Instructions: Inhale ONE vial via NEBULIZER FOUR TIMES DAILY NEEDED FOR SHORTNESS OF BREATH OR FOR WHEEZING metformin 500 mg tablet 500 mg PO DAILY Qty: 90 0RF isosorbide mononitrate 60 mg tablet extended release 24 hr See Rx Instructions .ROUTE .COMPLEX Qty: 30 0RF Dose Instruction: TAKE ONE TABLET BY MOUTH DAILY Rx Instructions: TAKE ONE TABLET BY MOUTH DAILY allopurinol 300 mg tablet See Rx Instructions .ROUTE .COMPLEX Qty: 30 0RF Dose Instruction: TAKE ONE TABLET BY MOUTH EVERY MORNING Rx Instructions: TAKE ONE TABLET BY MOUTH EVERY MORNING omeprazole 20 mg capsule,delayed release(DR/EC) See Rx Instructions .ROUTE .COMPLEX Qty: 60 0RF Dose Instruction: TAKE ONE CAPSULE BY MOUTH TWICE DAILY Rx Instructions: TAKE ONE CAPSULE BY MOUTH TWICE DAILY benazepril 20 mg tablet 20 mg PO DAILY Qty: 90 0RF hydrochlorothiazide 25 mg tablet 25 mg PO DAILY Qty: 90 0RF amlodipine 10 mg tablet 10 mg PO QAM Qty: 90 0RF albuterol sulfate 90 mcg/actuation HFA aerosol inhaler 2 inh INHALATION Q6H PRN (Reason: shortness of breath or wheezing) Qty: 6.7 0RF azelastine 137 mcg (0.1 %) aerosol,spray 2 spray INTRANASAL BID Rx Instructions: administer into each nostril nitroglycerin 0.4 mg tablet, sublingual 0.4 mg sublingual Q5M PRN (Reason: chest pain) Qty: 30 3RF Rx Instructions: do not exceed 3 doses per episode montelukast 10 mg tablet 10 mg PO BEDTIME meclizine 25 mg tablet 25 mg PO TID PRN (Reason: dizziness) Qty: 30 0RF Discharge Orders: Discharge ED (Routine); Ordered 06/24/24 Ordered By: Giuseppe Mcgill Referrals: Marleen Finnegan FNP [Primary Care Provider] - 4-7 days Patient Instructions: Bronchitis (Acute) - Adult, Chest Pain (ED), Hypertension (ED), Opioid Safety, Pain Management Activity Restrictions/Additional Instructions: Your laboratory and other studies revealed your chest pain was not related to a heart attack. It is more likely related to hypertension, and potentially your chronic bronchitis. Medication as directed. Take your blood pressure twice daily for the next several days and report numbers to your physician. Other treatment may be needed. Return for worsening chest pain despite treatment, fever, worsening shortness of breath, other concerning symptoms. See your doctor next week. Coding Level of Care Code ED [facility] Justice for Eliana Boyce
--- NOTE | 2024-06-23 23:41 | XRR_ITS ---
PROCEDURE INFORMATION: Exam: XR Chest Exam date and time: 06/23/2024 11:45 PM Age: 63 years old Clinical indication: Chest pressure; Patient HX: C/O chest pain; Additional info: Cp TECHNIQUE: Imaging protocol: Radiologic exam of the chest. Views: 1 view. COMPARISON: CT lung screening [id number] 04/30/2024 9:01 AM FINDINGS: Lungs: Unremarkable. No consolidation. A few minute calcified lung nodules are seen incidentally. Pleural spaces: Unremarkable. No pleural effusion. No pneumothorax. Heart/Mediastinum: Unremarkable. No cardiomegaly. Bones/joints: Unremarkable. XR/XR chest 1V portable [id number] IMPRESSION: No acute findings.
[2024-06-23 23:45] LABS: Basophils % 0.5 %; Eosinophils # 0.1 10^3/uL (0.0-0.8); Eosinophils % 0.9 %; Hematocrit 49.5 % (37-53); Lymphocytes # 1.8 10^3/uL (0.8-4.8); Lymphocytes % 22.9 %; Mean Corpuscular HGB Conc 33.3 g/dL (30-55); Mean Platelet Volume 10.4 fL (7.4-10.4); Monocytes # 0.8 10^3/uL (0.2-0.9); Monocytes % 9.9 %; Neutrophils # 5.06 10^3/uL (1.8-7.7); Neutrophils % 65.7 %; Nucleated Red Blood Cells % 0 %; Platelet Count 351 10^3/cmm (157-399); Red Blood Count 5.69 10^6/uL (3.85-5.65); Red Cell Distribution Width 13.4 % (12.1-15.1)
[2024-06-23 23:57] LABS: INR 0.88 (0.8-1.2)
[2024-06-23 23:58] LABS: Partial Thromboplastin Time 30.8 SECONDS (23.9-36.7)
[2024-06-24 00:03] LABS: Alanine Aminotransferase 14 U/L (0-41); Albumin Level 4.2 g/dL (3.5-5.2); Alkaline Phosphatase 146 U/L (40-130); Anion Gap 21.7 (5-19); Aspartate Amino Transferase 14 U/L (0-40); Blood Urea Nitrogen 7 mg/dL (8-23); Calcium 9.1 mg/dL (8.5-10.5); Carbon Dioxide 31 mmol/L (22-29); Chloride 91 mmol/L (98-107); Creatinine Clr Calc Pharmacy 99.8884; Globulin 2.3 g/dL (1.3-4.6); Glomerular Filtration Rate 98.3 mL/min (90-130); Glucose 127 mg/dL (65-115); Osmolality Calculated 290 mOsm/kg (285-295); Potassium 3.7 mmol/L (3.5-5.1); Sodium 140 mmol/L (136-145); Total Bilirubin 0.6 mg/dL (0.15-1.2); Total Protein 6.5 g/dL (6.6-8.7)
[2024-06-24 00:05] LABS: Troponin(5th) Baseline 11 ng/L (0-15)
[2024-06-24] MEDS: morphine 4 mg/mL SDV 1 mL IVP (00:12)
[2024-06-24] MEDS: nitroglycerin 1 gm/inch oint Pkt 1 INCH TOPICAL (00:12)
[2024-06-24] MEDS: ondansetron 2 mg/ML SDV 2 mL 4 MG IVP (00:13)
[2024-06-24 00:45] LABS: NT Pro B Type Natriuretic Pept 76 pg/mL (0-125)
[2024-06-24 01:24] LABS: Troponin 5 2HR 9.05 ng/L (0-15)
[2024-06-24 01:25] LABS: Troponin 5 2HR Delta -1.95 ABS# (0-10)
[2024-06-24 01:26] LABS: Covid PCR NEGATIVE (Negative); Influenza A NEGATIVE (Negative); Influenza B NEGATIVE (Negative); Respiratory Syncytial Virus Ce NEGATIVE (Negative)
--- NOTE | 2024-06-24 01:41 | ECG_ITS ---
[employer] Test Date: 2024-06-24 Pat Name: Isiah Knowles Department: Room: Gender: Male Document Processor: : 1960 Requested By: Giuseppe Joyce Order Number: [id number] Chun MD: Senait Hartman M.D. Measurements Intervals [place] Rate: 59 P: 40 WI: 259 QRS: 11 QRSD: 112 T: 25 QT: 427 QTc: 424 Interpretive Statements SINUS BRADYCARDIA WITH FIRST DEGREE AV BLOCK POSSIBLE INFERIOR MYOCARDIAL INFARCTION , PROBABLY OLD [30 ms Q WAVE IN II/aVF] Compared to ECG 06/23/2024 23:33:07 Myocardial infarct finding now present Intraventricular conduction delay no longer present T-wave abnormality no longer present Electronically Signed On 06-24-2024 13:34:37 BUSINESS MANAGER by Senait Hartman M.D. [email or web address]
[2024-06-24 02:01] VITALS: BP 150/87; PULSE 87; RESP 18; O2SAT 98
== END 2024-06-24 02:02 | disposition home or self-care (01) ==
PROVIDERS: Emergency Provider Emergency Medicine; PCP Nurse Practitioner Family
DX: R07.89 Other chest pain (principal); J42 Unspecified chronic bronchitis; I10 Essential (primary) hypertension; Z79.82 Long term (current) use of aspirin; Z11.52 Encounter for screening for COVID-19; I25.10 Atherosclerotic heart disease of native coronary artery without angina pectoris; E11.9 Type 2 diabetes mellitus without complications
CPT/HCPCS: 36415; 71045; 80053; 83880; 84484; 85025; 85610; 85730; 87637; 93005; 96374; 96375; 99285; J2270; J2405

== ENCOUNTER 2024-06-24 07:42 | Emergency (ER) | payer MEDICARE, MEDICAID, SELFPAY ==
[2024-06-24 07:51] VITALS: BP 159/75; PULSE 67; RESP 16; TEMP 36.6; O2SAT 94; BMI 22.9
[2024-06-24] MEDS: levoFLOXacin 500 mg Tablet PO (08:22)
[2024-06-24] MEDS: meclizine 25 mg tablet PO (08:22)
--- NOTE | 2024-06-24 09:07 | W.ED.DIZZY ---
HPI - Dizziness General: Chief Complaint: Dizziness Stated Complaint: dizziness Time Seen by Provider: 06/24/24 07:56 History of Present Illness: HPI Narrative: This patient is a 63-year-old white male who presents to the emergency department complaining of dizziness. He states it feels more like a spinning sensation. He is somewhat nauseous with it. No chest pain or shortness of breath. Patient states he was seen earlier this morning here for chest pain. I did review that workup and the workup was normal. He was diagnosed with bronchitis and prescribed Levaquin. Associated symptoms: Reports nausea Related Data Home Medications Medication Instructions Recorded Confirmed aspirin 81 mg tablet,delayed 81 mg PO QAM 08/14/19 03/27/24 release (Adult Aspirin Regimen) azelastine 137 mcg (0.1 %) nasal 2 spray intranasal BID 01/17/21 03/27/24 spray montelukast 10 mg tablet 10 mg PO BEDTIME 03/17/22 03/27/24 Previous Rx's Medication Instructions Recorded albuterol sulfate 90 mcg/actuation 2 inh inhalation Q6H PRN shortness 07/13/19 aerosol inhaler of breath or wheezing #6.7 grams nitroglycerin 0.4 mg sublingual 0.4 mg sublingual Q5M PRN chest 01/18/21 tablet pain #30 tabs budesonide-formoterol HFA 80 2 puff inhalation Q12H 30 days 01/11/22 mcg-4.5 mcg/actuation aerosol #10.2 grams inhaler (Symbicort) tiotropium bromide 1.25 2 puff inhalation DAILY 30 days #4 01/11/22 mcg/actuation mist for inhalation grams (Spiriva Respimat) atorvastatin 40 mg tablet 40 mg PO BEDTIME #30 tabs 01/20/24 fluticasone propionate 50 1 spray intranasal DAILY #16 grams 02/03/24 mcg/actuation nasal spray,suspension (Flonase Allergy Relief) metoprolol tartrate 50 mg tablet 50 mg PO BID #180 tabs 02/07/24 amoxicillin 875 mg-potassium 1 tab PO BID 10 days #20 tabs 02/08/24 clavulanate 125 mg tablet loratadine 10 mg tablet 10 mg PO DAILY #90 tabs 02/08/24 levofloxacin 500 mg tablet 500 mg PO DAILY #7 tabs 03/27/24 promethazine-DM 6.25 mg-15 mg/5 mL 5 ml PO Q6H PRN cough #180 mL 03/27/24 oral syrup albuterol sulfate 2.5 mg/3 mL See Rx Instructions .Route 04/04/24 (0.083 %) solution for nebulization .COMPLEX #180 mL allopurinol 300 mg tablet See Rx Instructions .Route 05/09/24 .COMPLEX #30 tabs isosorbide mononitrate 60 mg See Rx Instructions .Route 05/09/24 tablet,extended release 24 hr .COMPLEX #30 tabs metformin 500 mg tablet 500 mg PO DAILY #90 tabs 05/09/24 omeprazole 20 mg capsule,delayed See Rx Instructions .Route 05/09/24 release .COMPLEX #60 caps amlodipine 10 mg tablet 10 mg PO QAM #90 tabs 05/15/24 benazepril 20 mg tablet 20 mg PO DAILY #90 tabs 05/15/24 hydrochlorothiazide 25 mg tablet 25 mg PO DAILY #90 tabs 05/15/24 meclizine 25 mg tablet 25 mg PO TID PRN dizziness #30 tabs 06/24/24 methylprednisolone 4 mg tablets in See Rx Instructions PO PER PKG DIR 06/24/24 a dose pack (Medrol (Cameron)) #21 ea Allergies Allergy/AdvReac Type Severity Reaction Status Date / Time No Known Allergies Allergy Verified 06/24/24 07:56 Review of Systems General: Reports: 10 or more systems reviewed and unremarkable except in HPI and below GI: Reports: nausea Neuro: Reports: dizziness [facility] ED PFSH: Medical History Chronic bronchitis Atherosclerosis of coronary artery Type 2 diabetes mellitus Chronic frontal sinusitis Chronic vasomotor rhinitis Fracture of triquetrum of left wrist Obstructive sleep apnea Allergic rhinosinusitis Nicotine addiction Allergic rhinosinusitis Nasal obstruction Nasal turbinate hypertrophy Nasal septal deformity Chronic sinusitis Hypertension Hypercholesteremia Surgical History History of sinus surgery H/O sinus surgery Family History Brother , Age 51 Heart attack Social History Smoking and tobacco/nicotine status: never used tobacco/nicotine Alcohol intake: current Alcohol intake frequency: holidays/special occasions only Substance/Drug Use: never Lives independently: Yes Household members: significant other Marital status: Single Current occupational status: disabled Do you think of yourself as: Straight/Heterosexual Current gender identity: Male Physical Exam Const: COMMON NORMALS: no acute distress, patient oriented x3 and no limitations GENERAL APPEARANCE: cooperative and comfortable HENMT: COMMON NORMALS: normocephalic, atraumatic, Normal nasal mucous membranes and turbinates present, moist oral mucous membranes and oropharynx normal HEAD & SCALP: normal to inspection, normocephalic and atraumatic FACE & SINUS: normal facial exam NOSE: Normal nasal mucous membranes and turbinates present Eye: COMMON NORMALS: Equal, round and reactive pupils present, EOMs intact bilaterally and conjunctivae normal GENERAL EYE: appearance normal, both eyes and all related structures CONJUNCTIVA: Yes conjunctivae normal PUPIL: Yes Equal, round and reactive pupils present Neck/C-Spine: COMMON NORMALS: supple and no JVD Chest: COMMONS NORMALS: normal inspection of the chest Resp: COMMON NORMALS: normal respiratory effort and clear to auscultation bilaterally AUSCULTATION: clear to auscultation bilaterally Cardio: COMMON NORMALS: no JVD, regular rate, regular rhythm, No gallops present (Cardio), No murmurs present (Cardio) and No rub (Cardio) RATE: regular rate RHYTHM: regular rhythm GI: COMMON NORMALS: Normal to inspection, nondistended, normoactive bowel sounds present, Soft to palpation and non-tender AUSCULTATION: Yes normoactive bowel sounds PALPATION: Yes Soft to palpation : COMMON NORMALS: Yes no CVA tenderness BLADDER/KIDNEY EXAM: Yes no CVA tenderness Back/Pelvis: COMMON NORMALS: no CVA tenderness and thoracic and lumbar spine normal to inspection Extremity: COMMON NORMALS: normal to inspection Neuro: COMMON NORMALS: patient oriented x3 and CN's II-XII intact bilaterally Psych: COMMON NORMALS: mental status grossly normal, Normal thought process present and cooperative THOUGHT PROCESS: Normal thought process present Skin: COMMON NORMALS: no rashes or lesions noted, turgor normal and no jaundice GENERAL SKIN EXAM: no rashes or lesions noted and turgor normal Course Vital Signs: Vital signs: Vital Signs Temperature 97.8 F 01/05/25 07:51 Pulse Rate 67 06/24/24 07:51 Respiratory Rate 16 06/24/24 07:51 Blood Pressure 159/75 06/24/24 07:51 Pulse Oximetry 94 06/24/24 07:51 Oxygen Delivery Me thod Room Air 06/24/24 07:51 MDM - Dizziness Medical Decision Making Repeat EKG this morning was normal. Patient was given his dose of Levaquin this morning. Also gave him a dose of meclizine. He was discharged in stable condition with a prescription for meclizine. He can start the Levaquin prescription tomorrow. He was concerned about his labile blood pressure. His blood pressure in the emergency department at this time is 159/75 with a heart rate of 60. I recommended he follow-up with his primary care physician for ongoing management of his hypertension. He was discharged in stable condition. No radiology studies performed this visit Discharge Plan Discharge Patient Disposition: Home Clinical Impression: Vertigo Condition: Stable Prescriptions: New meclizine 25 mg tablet 25 mg PO TID PRN (Reason: dizziness) Qty: 30 0RF No Action aspirin [Adult Aspirin Regimen] 81 mg tablet,delayed release (DR/EC) 81 mg PO QAM amoxicillin-pot clavulanate 875-125 mg tablet 1 tab PO BID 10 Days Qty: 20 0RF loratadine 10 mg tablet 10 mg PO DAILY Qty: 90 3RF promethazine-DM 6.25-15 mg/5 mL syrup 5 ml PO Q6H PRN (Reason: cough) Qty: 180 0RF levofloxacin 500 mg tablet 500 mg PO DAILY Qty: 7 0RF Spiriva Respimat 1.25 mcg/actuation mist 2 puff inhalation DAILY 30 Days Qty: 4 4RF budesonide-formoterol [Symbicort] 80-4.5 mcg/actuation HFA aerosol inhaler 2 puff INHALATION Q12H 30 Days Qty: 10.2 3RF atorvastatin 40 mg tablet 40 mg PO BEDTIME Qty: 30 3RF fluticasone propionate [Flonase Allergy Relief] 50 mcg/actuation spray,suspension 1 spray intranasal DAILY Qty: 16 0RF Rx Instructions: administer into each nostril metoprolol tartrate 50 mg tablet 50 mg PO BID Qty: 180 1RF albuterol sulfate 2.5 mg /3 mL (0.083 %) solution for nebulization See Rx Instructions .ROUTE .COMPLEX Qty: 180 0RF Dose Instruction: Inhale ONE vial via NEBULIZER FOUR TIMES DAILY NEEDED FOR SHORTNESS OF BREATH OR FOR WHEEZING Rx Instructions: Inhale ONE vial via NEBULIZER FOUR TIMES DAILY NEEDED FOR SHORTNESS OF BREATH OR FOR WHEEZING metformin 500 mg tablet 500 mg PO DAILY Qty: 90 0RF isosorbide mononitrate 60 mg tablet extended release 24 hr See Rx Instructions .ROUTE .COMPLEX Qty: 30 0RF Dose Instruction: TAKE ONE TABLET BY MOUTH DAILY Rx Instructions: TAKE ONE TABLET BY MOUTH DAILY allopurinol 300 mg tablet See Rx Instructions .ROUTE .COMPLEX Qty: 30 0RF Dose Instruction: TAKE ONE TABLET BY MOUTH EVERY MORNING Rx Instructions: TAKE ONE TABLET BY MOUTH EVERY MORNING omeprazole 20 mg capsule,delayed release(DR/EC) See Rx Instructions .ROUTE .COMPLEX Qty: 60 0RF Dose Instruction: TAKE ONE CAPSULE BY MOUTH TWICE DAILY Rx Instructions: TAKE ONE CAPSULE BY MOUTH TWICE DAILY benazepril 20 mg tablet 20 mg PO DAILY Qty: 90 0RF hydrochlorothiazide 25 mg tablet 25 mg PO DAILY Qty: 90 0RF amlodipine 10 mg tablet 10 mg PO QAM Qty: 90 0RF albuterol sulfate 90 mcg/actuation HFA aerosol inhaler 2 inh INHALATION Q6H PRN (Reason: shortness of breath or wheezing) Qty: 6.7 0RF azelastine 137 mcg (0.1 %) aerosol,spray 2 spray INTRANASAL BID Rx Instructions: administer into each nostril nitroglycerin 0.4 mg tablet, sublingual 0.4 mg sublingual Q5M PRN (Reason: chest pain) Qty: 30 3RF Rx Instructions: do not exceed 3 doses per episode montelukast 10 mg tablet 10 mg PO BEDTIME methylprednisolone [Medrol (Cameron)] 4 mg tablets,dose pack See Rx Instructions PO PER PKG DIR Qty: 21 0RF Rx Instructions: PO PER PKG DIR Discharge Orders: Discharge ED (Routine); Ordered 06/24/24 Ordered By: Avery Parrish Referrals: Marleen Finnegan, BELEM [Primary Care Provider] - Coding Level of Care Code ED 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
[2024-06-24 09:15] VITALS: BP 169/106; PULSE 69; O2SAT 95
== END 2024-06-24 09:17 | disposition home or self-care (01) ==
PROVIDERS: Emergency Provider Emergency Medicine; PCP Nurse Practitioner Family
DX: R42 Dizziness and giddiness (principal); Z79.84 Long term (current) use of oral hypoglycemic drugs; E11.9 Type 2 diabetes mellitus without complications; I10 Essential (primary) hypertension; I25.10 Atherosclerotic heart disease of native coronary artery without angina pectoris
CPT/HCPCS: 99283; J8597

== ENCOUNTER 2024-07-31 00:21 | Emergency (ER) | payer MEDICARE, MEDICAID, SELFPAY ==
[2024-07-31 00:23] VITALS: BP 140/83; PULSE 75; RESP 18; TEMP 36.7; O2SAT 97; BMI 32.7
[2024-07-31 00:29] VITALS: BP 126/74; PULSE 71; RESP 16; O2SAT 97
--- NOTE | 2024-07-31 00:30 | XRR_ITS ---
PROCEDURE INFORMATION: Exam: XR Chest Exam date and time: 07/31/2024 12:33 AM Age: 63 years old Clinical indication: Shortness of breath TECHNIQUE: Imaging protocol: Radiologic exam of the chest. Views: 1 view. COMPARISON: CR (CHEST, ) 06/23/2024 11:45 PM FINDINGS: Lungs: Partially calcified pulmonary nodules and mediastinal lymph nodes noted compatible with prior granulomatous exposure. No consolidation. Pleural spaces: Unremarkable. No pleural effusion. No pneumothorax. Heart/Mediastinum: Unremarkable. No cardiomegaly. Bones/joints: Unremarkable. XR/XR chest 1V portable [id number] IMPRESSION: No acute findings.
--- NOTE | 2024-07-31 00:30 | ECG_ITS ---
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 Measurements Intervals [place] Rate: 73 P: 16 TN: 241 QRS: -4 QRSD: 114 T: 35 QT: 364 QTc: 401 Interpretive Statements SINUS RHYTHM WITH FIRST DEGREE AV BLOCK INFERIOR MYOCARDIAL INFARCTION , PROBABLY OLD [40+ ms Q WAVE AND/OR ST/T ABNORMALITY IN II/aVF] Compared to ECG 06/24/2024 08:15:42 Sinus bradycardia no longer present Myocardial infarct finding still present Electronically Signed On 08-01-2024 17:51:28 BLENDER MACHINE OPERATOR by Senait Hartman M.D. [email or web address]
[2024-07-31 00:40] LABS: Basophils % 0.3 %; Eosinophils # 0.1 10^3/uL (0.0-0.8); Hematocrit 46.2 % (37-53); Lymphocytes # 1.8 10^3/uL (0.8-4.8); Lymphocytes % 28.9 %; Mean Corpuscular HGB Conc 32.9 g/dL (30-55); Mean Corpuscular Hemoglobin 28.8 pg (27-33); Mean Corpuscular Volume 87.5 fl (82-101); Mean Platelet Volume 9.8 fL (7.4-10.4); Monocytes # 0.6 10^3/uL (0.2-0.9); Monocytes % 9.6 %; Neutrophils # 3.76 10^3/uL (1.8-7.7); Neutrophils % 59.9 %; Nucleated Red Blood Cells % 0 %; Platelet Count 290 10^3/cmm (157-399); Red Blood Count 5.28 10^6/uL (3.85-5.65); Red Cell Distribution Width 13.2 % (12.1-15.1); White Blood Count 6.27 10^3/uL (3.29-11.43)
[2024-07-31 00:44] VITALS: PULSE 73; RESP 20; O2SAT 99
--- NOTE | 2024-07-31 00:53 | W.ED.SOB ---
HPI - SOB/Dyspnea General: Chief Complaint: Shortness of Breath/Dyspnea Stated Complaint: short of breath Time Seen by Provider: 07/31/24 00:23 History of Present Illness: HPI Narrative: 63-year-old male with a history of chronic bronchitis, type 2 diabetes, coronary artery disease, tobacco dependence, hypertension and hyperlipidemia who presents emergency room by ambulance with shortness of breath. This has been going on for several days to a couple of weeks. He says he feels like he is fighting for breath. He says he has been tested for COPD multiple times and does not have it. No chest pain. No altered mental status. No fevers. He has had some cough. No lower extremity swelling. No calf pain. No abdominal pain. No vomiting. Related Data Home Medications ?Medication ?Instructions ?Recorded ?Confirmed aspirin 81 mg tablet,delayed 81 mg PO QAM 08/14/19 03/27/24 release (Adult Aspirin Regimen) azelastine 137 mcg (0.1 %) nasal 2 spray intranasal BID 01/17/21 03/27/24 spray montelukast 10 mg tablet 10 mg PO BEDTIME 03/17/22 03/27/24 Previous Rx's ?Medication ?Instructions ?Recorded albuterol sulfate 90 mcg/actuation 2 inh inhalation Q6H PRN shortness 07/13/19 aerosol inhaler of breath or wheezing #6.7 grams nitroglycerin 0.4 mg sublingual 0.4 mg sublingual Q5M PRN chest 01/18/21 tablet pain #30 tabs budesonide-formoterol HFA 80 2 puff inhalation Q12H 30 days 01/11/22 mcg-4.5 mcg/actuation aerosol #10.2 grams inhaler (Symbicort) tiotropium bromide 1.25 2 puff inhalation DAILY 30 days #4 01/11/22 mcg/actuation mist for inhalation grams (Spiriva Respimat) atorvastatin 40 mg tablet 40 mg PO BEDTIME #30 tabs 01/20/24 fluticasone propionate 50 1 spray intranasal DAILY #16 grams 02/03/24 mcg/actuation nasal spray,suspension (Flonase Allergy Relief) metoprolol tartrate 50 mg tablet 50 mg PO BID #180 tabs 02/07/24 amoxicillin 875 mg-potassium 1 tab PO BID 10 days #20 tabs 02/08/24 clavulanate 125 mg tablet loratadine 10 mg tablet 10 mg PO DAILY #90 tabs 02/08/24 levofloxacin 500 mg tablet 500 mg PO DAILY #7 tabs 03/27/24 promethazine-DM 6.25 mg-15 mg/5 mL 5 ml PO Q6H PRN cough #180 mL 03/27/24 oral syrup albuterol sulfate 2.5 mg/3 mL See Rx Instructions .Route 04/04/24 (0.083 %) solution for nebulization .COMPLEX #180 mL allopurinol 300 mg tablet See Rx Instructions .Route 05/09/24 .COMPLEX #30 tabs isosorbide mononitrate 60 mg See Rx Instructions .Route 05/09/24 tablet,extended release 24 hr .COMPLEX #30 tabs metformin 500 mg tablet 500 mg PO DAILY #90 tabs 05/09/24 omeprazole 20 mg capsule,delayed See Rx Instructions .Route 05/09/24 release .COMPLEX #60 caps amlodipine 10 mg tablet 10 mg PO QAM #90 tabs 05/15/24 benazepril 20 mg tablet 20 mg PO DAILY #90 tabs 05/15/24 hydrochlorothiazide 25 mg tablet 25 mg PO DAILY #90 tabs 05/15/24 meclizine 25 mg tablet 25 mg PO TID PRN dizziness #30 tabs 06/24/24 methylprednisolone 4 mg tablets in See Rx Instructions PO PER PKG DIR 06/24/24 a dose pack (Medrol (Cameron)) #21 ea albuterol sulfate 90 mcg/actuation 2 inh inhalation Q4H PRN shortness 07/31/24 aerosol inhaler of breath or wheezing #6.7 grams dexamethasone 6 mg tablet 6 mg PO DAILY 5 days #5 tabs 07/31/24 doxycycline hyclate 100 mg capsule 100 mg PO BID 7 days #14 caps 07/31/24 Allergies Allergy/AdvReac Type Severity Reaction Status Date / Time No Known Allergies Allergy Verified 07/31/24 00:30 Review of Systems Narrative: Constitutional symptoms: Negative except as documented in HPI. Skin symptoms: Negative except as documented in HPI. Eye symptoms: Negative except as documented in HPI. ENMT symptoms: Negative except as documented in HPI. Respiratory symptoms: Negative except as documented in HPI. Cardiovascular symptoms: Negative except as documented in HPI. Gastrointestinal symptoms: Negative except as documented in HPI. Genitourinary symptoms: Negative except as documented in HPI. Musculoskeletal symptoms: Negative except as documented in HPI. Neurologic symptoms: Negative except as documented in HPI. Psychiatric symptoms: Negative except as documented in HPI. Endocrine symptoms: Negative except as documented in HPI. PFSH ED PFSH: Medical History Chronic bronchitis Atherosclerosis of coronary artery Type 2 diabetes mellitus Chronic frontal sinusitis Chronic vasomotor rhinitis Fracture of triquetrum of left wrist Obstructive sleep apnea Allergic rhinosinusitis Nicotine addiction Allergic rhinosinusitis Nasal obstruction Nasal turbinate hypertrophy Nasal septal deformity Chronic sinusitis Hypertension Hypercholesteremia Surgical History History of sinus surgery H/O sinus surgery Family History Brother , Age 51 Heart attack Social History Smoking and tobacco/nicotine status: never used tobacco/nicotine Alcohol intake: current Alcohol intake frequency: holidays/special occasions only Substance/Drug Use: never Lives independently: Yes Household members: significant other Marital status: Single Current occupational status: disabled Do you think of yourself as: Straight/Heterosexual Current gender identity: Male Physical Exam Narrative: EXAM NARRATIVE: General: Alert, no acute distress. Skin: Warm, dry. Head: Normocephalic, atraumatic. Neck: Supple, trachea midline. Eye: Extraocular movements are intact. Ears, nose, mouth and throat: mucosa moist. Cardiovascular: Regular, Normal peripheral perfusion. Respiratory: Lungs are clear to auscultation, respirations are non-labored, breath sounds are equal, Symmetrical chest wall expansion. Gastrointestinal: Soft, Nontender, Non distended Musculoskeletal: Normal ROM, no deformity. Neurological: Alert and oriented, No focal neurological deficit observed. Psychiatric: Cooperative, appropriate mood & affect. Course Vital Signs: Vital signs: Vital Signs Temperature 98.0 F 07/31/24 00:23 Pulse Rate 84 07/31/24 02:15 Respiratory Rate 22 H 07/31/24 02:15 Blood Pressure 134/81 07/31/24 02:15 Pulse Oximetry 96 07/31/24 02:15 Oxygen Delivery Me thod Room Air 07/31/24 00:23 MDM - SOB/Dyspnea Medical Decision Making Differential diagnosis for patient with shortness of breath includes but is not limited to and based on the above HPI, review of systems and physical exam: Pneumonia. Bronchitis. Asthma or COPD with acute exacerbation. Acute coronary syndrome / TN. Pulmonary embolism. Anxiety. Congestive heart failure. Viral infections including influenza and Covid-19. Atrial fibrillation. Anxiety. Pleural effusion. Pneumothorax. Orders placed to evaluate differential diagnosis based on the above differential, HPI and physical exam EKG: Time 12:23 AM. Rate 73. Normal sinus rhythm, No ST-T changes, no ectopy, first degree AV Block, EP Interpretation. This was reviewed and interpreted by myself the ER physician At 12:25 AM. Chest x-ray: No acute process. No infiltrate. No pneumothorax. This was reviewed and interpreted by myself the emergency room physician. I also reviewed the radiology report. Lab Review: Laboratory results were reviewed and interpreted by myself the emergency room physician. No leukocytosis. No anemia. No renal failure. Serial troponins are negative. Flu COVID and RSV are negative. proBNP is negative. No signs of heart failure on chest x-ray either. I reviewed the patient's medical record. Reexamination: Patient remained stable. No increased work of breathing. No altered mental status. No focal motor deficits. Assessment and plan: Bronchitis Shortness of breath Noncardiac chest pain ? Methylprednisolone and breathing treatment in the emergency room. - Discharged home - Discussed plan with patient. Answered any questions. - Evaluation and treatment of this problem were appropriate in the emergency setting. Lab Data 07/31/24 00:37 07/31/24 00:37 Labs/Radiology: Radiology Impressions Chest X-Ray 07/31/24 00:30 IMPRESSION: No acute findings. Laboratory Results WBC 6.27 10^3/uL (3.29-11.43) 07/31/24 00:37 RBC 5.28 10^6/uL (3.85-5.65) 07/31/24 00:37 Hgb 15.20 g/dL (11.27-16.99) 07/31/24 00:37 Hct 46.2 % (37-53) 07/31/24 00:37 MCV 87.5 fl (82-101) 07/31/24 00:37 MCH 28.8 pg (27-33) 07/31/24 00:37 MCHC 32.9 g/dL (30-55) 07/31/24 00:37 RDW 13.2 % (12.1-15.1) 07/31/24 00:37 Plt Count 290 10^3/cmm (157-399) 07/31/24 00:37 MPV 9.8 fL (7.4-10.4) 07/31/24 00:37 Neut % (Auto) 59.9 % 07/31/24 00:37 Lymph % (Auto) 28.9 % 07/31/24 00:37 Hill % (Auto) 9.6 % 07/31/24 00:37 Eos % (Auto) 1.0 % 07/31/24 00:37 Baso % (Auto) 0.3 % 07/31/24 00:37 Neut # (Auto) 3.76 10^3/uL (1.8-7.7) 07/31/24 00:37 Lymph # (Auto) 1.8 10^3/uL (0.8-4.8) 07/31/24 00:37 Hill # (Auto) 0.6 10^3/uL (0.2-0.9) 07/31/24 00:37 Eos # (Auto) 0.1 10^3/uL (0.0-0.8) 07/31/24 00:37 Baso # (Auto) 0.0 10^3/uL (0.0-0.1) 07/31/24 00:37 Nucleated RBC % (auto) 0 % 07/31/24 00:37 Nucleated RBCs # 0.0 /100WBC 07/31/24 00:37 Sodium 139 mmol/L (136-145) 07/31/24 00:37 Potassium 3.1 mmol/L (3.5-5.1) L 07/31/24 00:37 Chloride 98 mmol/L (98-107) 07/31/24 00:37 Carbon Dioxide 29 mmol/L (22-29) 07/31/24 00:37 Anion Gap 15.1 (5-19) 07/31/24 00:37 BUN 7 mg/dL (8-23) L 07/31/24 00:37 Creatinine 0.7 mg/dL (0.7-1.2) 07/31/24 00:37 GFR Calculation 114.6 mL/min (90-130) 07/31/24 00:37 Glucose 141 mg/dL (65-115) H 07/31/24 00:37 Calculated Osmolality 288 mOsm/kg (285-295) 07/31/24 00:37 Lactic Acid 1.5 mmol/L (0.5-2.2) 07/31/24 00:37 Calcium 8.9 mg/dL (8.5-10.5) 07/31/24 00:37 Total Bilirubin 0.8 mg/dL (0.15-1.2) 07/31/24 00:37 AST 16 U/L (0-40) 07/31/24 00:37 ALT 16 U/L (0-41) 07/31/24 00:37 Alkaline Phosphatase 135 U/L (40-130) H 07/31/24 00:37 Troponin T Baseline 11 ng/L (0-15) 07/31/24 00:37 Troponin T 120 Minute 10.39 ng/L (0-15) 07/31/24 02:17 Delta Troponin T -0.61 ABS# (0-10) L 07/31/24 02:17 C-Reactive Protein 6.5 mg/L (0.0-4.9) H 07/31/24 00:37 NT-Pro-B Natriuret Pep 44 pg/mL (0-125) 07/31/24 00:37 Total Protein 6.5 g/dL (6.6-8.7) L 07/31/24 00:37 Albumin 3.9 g/dL (3.5-5.2) 07/31/24 00:37 Globulin 2.6 g/dL (1.3-4.6) 07/31/24 00:37 Coronavirus (PCR) Negative (Negative) 07/31/24 00:37 Influenza A (PCR) Negative (Negative) 07/31/24 00:37 Influenza Type B (PCR) Negative (Negative) 07/31/24 00:37 RSV (PCR) Negative (Negative) 07/31/24 00:37 All radiology interpretation(s) finalized by discharge Discharge Plan Discharge Patient Disposition: Home Clinical Impression: Bronchitis, Tobacco dependence Condition: Stable Prescriptions: New doxycycline hyclate 100 mg capsule 100 mg PO BID 7 Days Qty: 14 0RF dexamethasone 6 mg tablet 6 mg PO DAILY 5 Days Qty: 5 0RF albuterol sulfate 90 mcg/actuation HFA aerosol inhaler 2 inh inhalation Q4H PRN (Reason: shortness of breath or wheezing) Qty: 6.7 0RF Rx Instructions: Please provide patient with a spacer No Action aspirin [Adult Aspirin Regimen] 81 mg tablet,delayed release (DR/EC) 81 mg PO QAM amoxicillin-pot clavulanate 875-125 mg tablet 1 tab PO BID 10 Days Qty: 20 0RF loratadine 10 mg tablet 10 mg PO DAILY Qty: 90 3RF promethazine-DM 6.25-15 mg/5 mL syrup 5 ml PO Q6H PRN (Reason: cough) Qty: 180 0RF levofloxacin 500 mg tablet 500 mg PO DAILY Qty: 7 0RF Spiriva Respimat 1.25 mcg/actuation mist 2 puff inhalation DAILY 30 Days Qty: 4 4RF budesonide-formoterol [Symbicort] 80-4.5 mcg/actuation HFA aerosol inhaler 2 puff INHALATION Q12H 30 Days Qty: 10.2 3RF atorvastatin 40 mg tablet 40 mg PO BEDTIME Qty: 30 3RF fluticasone propionate [Flonase Allergy Relief] 50 mcg/actuation spray,suspension 1 spray intranasal DAILY Qty: 16 0RF Rx Instructions: administer into each nostril metoprolol tartrate 50 mg tablet 50 mg PO BID Qty: 180 1RF albuterol sulfate 2.5 mg /3 mL (0.083 %) solution for nebulization See Rx Instructions .ROUTE .COMPLEX Qty: 180 0RF Dose Instruction: Inhale ONE vial via NEBULIZER FOUR TIMES DAILY NEEDED FOR SHORTNESS OF BREATH OR FOR WHEEZING Rx Instructions: Inhale ONE vial via NEBULIZER FOUR TIMES DAILY NEEDED FOR SHORTNESS OF BREATH OR FOR WHEEZING metformin 500 mg tablet 500 mg PO DAILY Qty: 90 0RF isosorbide mononitrate 60 mg tablet extended release 24 hr See Rx Instructions .ROUTE .COMPLEX Qty: 30 0RF Dose Instruction: TAKE ONE TABLET BY MOUTH DAILY Rx Instructions: TAKE ONE TABLET BY MOUTH DAILY allopurinol 300 mg tablet See Rx Instructions .ROUTE .COMPLEX Qty: 30 0RF Dose Instruction: TAKE ONE TABLET BY MOUTH EVERY MORNING Rx Instructions: TAKE ONE TABLET BY MOUTH EVERY MORNING omeprazole 20 mg capsule,delayed release(DR/EC) See Rx Instructions .ROUTE .COMPLEX Qty: 60 0RF Dose Instruction: TAKE ONE CAPSULE BY MOUTH TWICE DAILY Rx Instructions: TAKE ONE CAPSULE BY MOUTH TWICE DAILY benazepril 20 mg tablet 20 mg PO DAILY Qty: 90 0RF hydrochlorothiazide 25 mg tablet 25 mg PO DAILY Qty: 90 0RF amlodipine 10 mg tablet 10 mg PO QAM Qty: 90 0RF albuterol sulfate 90 mcg/actuation HFA aerosol inhaler 2 inh INHALATION Q6H PRN (Reason: shortness of breath or wheezing) Qty: 6.7 0RF azelastine 137 mcg (0.1 %) aerosol,spray 2 spray INTRANASAL BID Rx Instructions: administer into each nostril nitroglycerin 0.4 mg tablet, sublingual 0.4 mg sublingual Q5M PRN (Reason: chest pain) Qty: 30 3RF Rx Instructions: do not exceed 3 doses per episode montelukast 10 mg tablet 10 mg PO BEDTIME methylprednisolone [Medrol (Cameron)] 4 mg tablets,dose pack See Rx Instructions PO PER PKG DIR Qty: 21 0RF Rx Instructions: PO PER PKG DIR meclizine 25 mg tablet 25 mg PO TID PRN (Reason: dizziness) Qty: 30 0RF Discharge Orders: Discharge ED (Routine); Ordered 07/31/24 Ordered By: Aracelis Mcbride Referrals: Marleen Finnegan, PEDIGREE RESEARCHER [Primary Care Provider] - Discharge Diet: Usual diet Discharge Activity: Increase activity as tolerated Patient Instructions: Acute Bronchitis (ED), Opioid Safety, Pain Management Activity Restrictions/Additional Instructions: Thank you for choosing [facility] for your healthcare needs today. Please realize this is an emergency room and that we are providing you with a medical screening exam and this may not be complete and all inclusive of all the testing and or work up that you may need to determine your ailment or severity of your illness. You have been screened and evaluated and felt safe for discharge. Health conditions do change or evolve sometimes and as such it is important that you follow up with your Primary Doctor to be re checked, 3-5 days is a general good time frame for follow up. You are always welcome to return to the ED for re assessment if your symptoms are worsening or you have new concerns Print Language: Tanzanian Coding Level of Care Code ED Marker Maker for Eliana Boyce
[2024-07-31 01:00] LABS: Lactic Sepsis W/Reflex 1.5 mmol/L (0.5-2.2)
[2024-07-31 01:01] LABS: Troponin(5th) Baseline 11 ng/L (0-15)
[2024-07-31 01:10] LABS: Alanine Aminotransferase 16 U/L (0-41); Albumin Level 3.9 g/dL (3.5-5.2); Alkaline Phosphatase 135 U/L (40-130); Anion Gap 15.1 (5-19); Aspartate Amino Transferase 16 U/L (0-40); Blood Urea Nitrogen 7 mg/dL (8-23); C Reactive Protein 6.5 mg/L (0.0-4.9); Calcium 8.9 mg/dL (8.5-10.5); Carbon Dioxide 29 mmol/L (22-29); Chloride 98 mmol/L (98-107); Creatinine Clr Calc Pharmacy 133.4968; Globulin 2.6 g/dL (1.3-4.6); Glomerular Filtration Rate 114.6 mL/min (90-130); Glucose 141 mg/dL (65-115); NT Pro B Type Natriuretic Pept 44 pg/mL (0-125); Osmolality Calculated 288 mOsm/kg (285-295); Potassium 3.1 mmol/L (3.5-5.1); Sodium 139 mmol/L (136-145); Total Bilirubin 0.8 mg/dL (0.15-1.2); Total Protein 6.5 g/dL (6.6-8.7)
[2024-07-31 01:18] LABS: Covid PCR NEGATIVE (Negative); Influenza A NEGATIVE (Negative); Influenza B NEGATIVE (Negative); Respiratory Syncytial Virus Ce NEGATIVE (Negative)
[2024-07-31 01:30] VITALS: BP 125/78; PULSE 67; RESP 22; O2SAT 95
[2024-07-31 01:45] VITALS: PULSE 65; RESP 25; O2SAT 96
[2024-07-31 02:15] VITALS: BP 134/81; PULSE 84; RESP 22; O2SAT 96
[2024-07-31] MEDS: methylPREDNISolone sod succ 125 mg/2 mL INJ IVP (02:21)
--- NOTE | 2024-07-31 02:24 | ECG_ITS ---
[facility] 2024-07[facility]31 Pat Name: Isiah Knowles Department: Room: Gender: Male Home Health Cna: : 1960 Requested By: Aracelis Wyman Order Number: [id number] Chun MD: Senait Hartman M.D. Measurements Intervals [place] Rate: 68 P: 29 MD: 234 QRS: 14 QRSD: 114 T: 50 QT: 406 QTc: 434 Interpretive Statements SINUS RHYTHM WITH FIRST DEGREE AV BLOCK MODERATE INTRAVENTRICULAR CONDUCTION DELAY [110+ ms QRS DURATION] NONSPECIFIC T-WAVE ABNORMALITY Compared to ECG 07/31/2024 00:25:53 Intraventricular conduction delay now present T-wave abnormality now present Myocardial infarct finding no longer present Electronically Signed On 08-01-2024 18:24:00 GAS STATION SUPERVISOR by Senait Hartman M.D. [email or web address]
[2024-07-31 02:40] LABS: Troponin 5 2HR 10.39 ng/L (0-15); Troponin 5 2HR Delta -0.61 ABS# (0-10)
== END 2024-07-31 03:24 | disposition home or self-care (01) ==
PROVIDERS: Emergency Provider Emergency Medicine; PCP Nurse Practitioner Family
DX: J40 Bronchitis, not specified as acute or chronic (principal); Z11.52 Encounter for screening for COVID-19; Z79.82 Long term (current) use of aspirin; Z79.84 Long term (current) use of oral hypoglycemic drugs; I25.10 Atherosclerotic heart disease of native coronary artery without angina pectoris; E11.9 Type 2 diabetes mellitus without complications; I10 Essential (primary) hypertension; F17.200 Nicotine dependence, unspecified, uncomplicated
CPT/HCPCS: 36415; 71045; 80053; 83605; 83880; 84484; 85025; 86140; 87040; 87637; 93005; 96374; 99285; J2919

== ENCOUNTER 2024-08-14 08:36 | Outpatient (CLI) | payer MEDICARE, MEDICAID, SELFPAY | END 2024-08-14 08:37 | disposition home or self-care (01) | LOC: SLEEP 08:43 | PROVIDERS: PCP Nurse Practitioner Family; Visit Provider Nurse Practitioner Family | DX: G47.34 Idiopathic sleep related nonobstructive alveolar hypoventilation (principal); R06.00 Dyspnea, unspecified | CPT/HCPCS: 94762 ==

== ENCOUNTER 2024-09-06 12:53 | Outpatient (CLI) | payer MEDICARE, MEDICAID, SELFPAY ==
--- NOTE | 2024-09-06 13:01 | USCV_ITS ---
Isiah Knowles Age: 63 Gender: M : 1960 Exam Date: 09/06/2024 13:06 Ordering Phys: Parvin Kilgore HABILITATION TRAINING SPECIALIST HABILITATION TRAINING SPECIALIST Technologist: HANK Exam Location: [facility]_ Indication: dizziness Risk Factors: Previous Vascular Surgery: Right Brachial BP: / Left Brachial BP: / Right Left Velocity (cm/s) Spectral Plaque Velocity (cm/s) Spectral Plaque Syst/Diast Broadening Syst/Diast Broadening 66.40/ 17.00 Prox CCA 67.30 / 22.50 75.20/ 20.50 Mid CCA 61.60 / 21.50 72.00/ 22.80 Distal CCA 59.00 / 21.90 44.10/ 15.40 Prox ICA 50.70 / 20.10 51.50/ 18.50 Mid ICA 49.60 / 19.00 46.40/ 17.10 Distal ICA 50.30 / 19.80 90.80 ECA 84.00 0.60 ICA/CCA 0.90 Antegrade Vertebral Antegrade 37.80/ 10.80 cm/s 34.40/ 11.60 cm/s Tri Subclavian Tri 93.70 135.1 0 FINDINGS Comparison: none available. No significant elevation of systolic or diastolic velocities. Waveforms are normal. Diffuse bilateral scattered calcified plaque and intimal thickening throughout the common carotid arteries and extending through the bifurcation. Antegrade vertebral arteries. CONCLUSIONS Bilateral ICA stenosis less than 50%. Mild carotid atherosclerosis. Dr. Caterina Kohler DO (Electronically Signed) Final Date: 06 September 2024 15:37 S
== END 2024-09-06 12:54 | disposition home or self-care (01) ==
PROVIDERS: PCP Nurse Practitioner Family; Visit Provider Nurse Practitioner Family
DX: R42 Dizziness and giddiness (principal); I65.23 Occlusion and stenosis of bilateral carotid arteries
CPT/HCPCS: 93880

== ENCOUNTER 2024-09-12 12:00 | Outpatient (CLI) | payer MEDICARE, MEDICAID, SELFPAY ==
--- NOTE | 2024-09-12 12:05 | CT_ITS ---
WS: [id number] CT HEAD TECHNIQUE: Noncontrast CT of the head obtained from the skullbase to the vertex. CLINICAL INFORMATION: WEAKNESS/LIGHT HEADEDNESS/NUMBNESS IN FEET COMPARISON: None. DLP: 1042.[address] scans at [facility] use at least one of these dose optimization techniques: automated exposure control; mA and/or kV adjustment per patient size (includes targeted exams where dose is matched to clinical indication); or iterative reconstruction. FINDINGS: No evidence of intracranial hemorrhage or mass effect. Ventricular system and basal cisterns are patent. Mild small vessel changes with mild parenchymal volume loss. No extra-axial fluid collections. No evidence of mass or mass effect. Vascular calcification. Mucosal thickening paranasal sinuses. Small amount of fluid in the LEFT maxillary sinus. Mastoid air cells are well aerated. CT/CT head wo con* [id number] IMPRESSION: 1. No evidence of intracranial hemorrhage or mass effect. 2. Mild small vessel changes with mild parenchymal volume loss. 3. Vascular calcification. 4. Mild mucosal thickening in the paranasal sinuses. 5. No acute intracranial findings.
== END 2024-09-12 12:01 | disposition home or self-care (01) ==
PROVIDERS: PCP Nurse Practitioner Family; Visit Provider Nurse Practitioner Family
DX: R53.1 Weakness (principal); R42 Dizziness and giddiness; R20.0 Anesthesia of skin; R93.0 Abnormal findings on diagnostic imaging of skull and head, not elsewhere classified; G31.89 Other specified degenerative diseases of nervous system; I70.90 Unspecified atherosclerosis; J34.89 Other specified disorders of nose and nasal sinuses; J32.0 Chronic maxillary sinusitis
CPT/HCPCS: 70450

== ENCOUNTER → 2025-03-28 09:30 | Outpatient (BNVA) | payer MEDICARE, MEDICAID, SELFPAY | PROVIDERS: Visit Provider Nurse Practitioner Family | DX: J44.1 Chronic obstructive pulmonary disease with (acute) exacerbation (principal) | CPT/HCPCS: 71046 ==

== ENCOUNTER → 2025-05-13 12:27 | Outpatient (BNVA) | payer MEDICARE, MEDICAID, SELFPAY | PROVIDERS: Visit Provider Nurse Practitioner Family | DX: R31.9 Hematuria, unspecified (principal); J42 Unspecified chronic bronchitis; R30.0 Dysuria | CPT/HCPCS: 80053; 84153; 85025 ==

== ENCOUNTER 2025-05-20 10:41 | Outpatient (CLI) | payer MEDICARE, MEDICAID, SELFPAY | END 2025-05-20 10:42 | disposition home or self-care (01) | PROVIDERS: Visit Provider Nurse Practitioner Family | DX: J42 Unspecified chronic bronchitis (principal); R91.1 Solitary pulmonary nodule | CPT/HCPCS: 81000 ==

== ENCOUNTER 2025-05-30 17:51 | Emergency (ER) | payer MEDICARE, MEDICAID, SELFPAY ==
[2025-05-30 17:53] VITALS: BP 146/82; PULSE 85; RESP 18; TEMP 36.6; O2SAT 98; BMI 30.5
[2025-05-30 18:04] VITALS: BP 133/58; PULSE 83; RESP 20; O2SAT 98
[2025-05-30 18:19] LABS: Hematocrit 44.3 % (37-53); Hemoglobin 15.10 g/dL (11.27-16.99); Mean Corpuscular HGB Conc 34.1 g/dL (30-55); Mean Corpuscular Hemoglobin 29.5 pg (27-33); Mean Corpuscular Volume 86.7 fl (82-101); Nucleated Red Blood Cells % 0 %; Platelet Count 281 10^3/cmm (157-399); Red Blood Count 5.11 10^6/uL (3.85-5.65); White Blood Count 10.81 10^3/uL (3.29-11.43)
[2025-05-30 18:37] LABS: Alanine Aminotransferase 19 U/L (0-41); Albumin Level 3.7 g/dL (3.5-5.2); Alkaline Phosphatase 106 U/L (40-130); Anion Gap 17.4 (5-19); Aspartate Amino Transferase 20 U/L (0-40); Blood Urea Nitrogen 10 mg/dL (8-23); Calcium 8.6 mg/dL (8.5-10.5); Carbon Dioxide 26 mmol/L (22-29); Chloride 100 mmol/L (98-107); Globulin 2.8 g/dL (1.3-4.6); Glucose 226 mg/dL (65-115); Lipase 27 U/L (13-60); Osmolality Calculated 296 mOsm/kg (285-295); Potassium 3.4 mmol/L (3.5-5.1); Sodium 140 mmol/L (136-145); Total Protein 6.5 g/dL (6.6-8.7)
[2025-05-30 18:48] VITALS: RESP 22; O2SAT 97
[2025-05-30] MEDS: ondansetron 2 mg/ML SDV 2 mL 4 MG IVP (18:48)
[2025-05-30] MEDS: morphine 4 mg/mL SDV 1 mL IVP (18:48)
--- NOTE | 2025-05-30 18:49 | CTR_ITS ---
PROCEDURE INFORMATION: Exam: CT Abdomen And Pelvis With Contrast Exam date and time: 05/30/2025 7:26 PM Age: 64 years old Clinical indication: Abdominal pain; Additional info: Rlq abd pain, R flank TECHNIQUE: Imaging protocol: Computed tomography of the abdomen and pelvis with contrast. Total images: 242 Radiation optimization: All CT scans at this facility use at least one of these dose optimization techniques: automated exposure control; mA and/or kV adjustment per patient size (includes targeted exams where dose is matched to clinical indication); or iterative reconstruction. Contrast material: [id number]; Contrast volume: 100 ml; Contrast route: INTRAVENOUS (IV); COMPARISON: 1. CT angio chest PE protcl [id number] 07/10/2021 2:[address] lung screening [id number] 01/16/2021 10:33 AM RADIATION DOSE METRICS: Total DLP (mGy-cm): 922.03 FINDINGS: Lungs: Insofar as lung bases are included within the field of view, no acute pathologic pulmonary process appreciated. Diaphragm: Small hiatal hernia. Liver: Hepatic punctate calcifications, likely sequelae of prior granulomatous infection, not significantly changed. Liver diffusely increased fat content/fatty infiltration. No focal hepatic lesions identified; subtle or isoattenuating/isointense lesions may be obscured. Left liver lobe segment 2 stable coarse benign-type calcification of 1.2 cm diameter, not changed compared with CT 07/10/2021. Gallbladder and biliary ducts: Gallbladder demonstrates layering intraluminal material, compatible with sludge or stones. Gallbladder wall is normal; no pericholecystic fluid or other signs of acute cholecystitis. Pancreas: Pancreas of normal thickness and contour. Spleen: Spleen normal in size and contour. No focal splenic mass identified. Adrenal glands: Adrenal glands are normal. Kidneys and ureters: Likely benign left renal cyst(s) are present, requiring no further evaluation, measuring as large as 3.8 cm diameter. Right ureteropelvic junction stone 3 mm diameter. Mild hydronephrosis. Stomach and bowel: Moderate burden of colonic stool without distension. No pathologic bowel distension or bowel wall thickening. Appendix: Normal appendix. Intraperitoneal space: No pathologic peritoneal fluid. No free peritoneal air. Retroperitoneal space: Incidental retroperitoneal pelvic phleboliths. Vasculature: Moderate scattered vascular calcifications. No major vessel hemodynamically significant narrowing, occlusion, or aneurysm. Lymph nodes: No lymphadenopathy. Urinary bladder: Bladder adequately distended. No abnormality identified. Reproductive: Prostatomegaly. Bones/joints: Moderate generalized degenerative changes of the vertebral column, including multilevel osteophytes, degenerative disc height loss, and facet arthrosis, consistent with patient age. Sacroiliac joint degenerative manifestations. Pubic symphysis mild degenerative changes (osteitis pubis). Bilateral hip mild degenerative change. No intrinsic osseous abnormality identified. Soft tissues: Small volume inguinal canal preperitoneal fat without bowel or peritoneal sac herniation. Soft tissues are normal as visualized, demonstrating no masses or swelling/induration. Ventral abdominal wall midline umbilical-periumbilical fat-containing hernia without inflammatory manifestations. Generalized mild bony proliferative enthesopathy of multiple tendon and ligament insertions, nonspecific. CT/CT abdomen pelvis w con* [id number] IMPRESSION: 1. Right ureteropelvic junction stone 3 mm diameter. Mild hydronephrosis. 2. Gallbladder findings likely represent sludge/small stones; no imaging evidence of cholecystitis. 3. Hepatic stable right liver chronic peripheral-capsular small calcifications (x2) and left liver lobe coarse calcifications, likely sequelae of prior granulomatous infection, not significantly changed 4. Moderate age-appropriate degenerative spinal changes. Other chronic/non-acute findings as described above.
--- NOTE | 2025-05-30 18:50 | W.ED.GENADLT ---
HPI - General Adult General: Chief complaint: Abdominal Pain Stated complaint: severe abd pain n/v Time Seen by Provider: 05/30/25 17:59 History of Present Illness: 64-year-old male with a past medical history of COPD, high blood pressure, high cholesterol, DM presents for chief complaint of right lower quadrant abdominal pain that started around 15:00 this afternoon. It is associated with nausea and vomiting. Bowel movement before coming to the emergency department had no blood. Patient denies diarrhea. Patient denies dysuria, hematuria but he states he is experiencing right sided back/flank pain. Patient denies fever, shortness of breath or chest pain. He denies previous history of abdominal surgeries. Related Data Home Medications ?Medication ?Instructions ?Recorded ?Confirmed aspirin 81 mg tablet,delayed 81 mg PO QAM 08/14/19 05/30/25 release (Adult Aspirin Regimen) montelukast 10 mg tablet 10 mg PO BEDTIME 03/17/22 05/30/25 Previous Rx's ?Medication ?Instructions ?Recorded nitroglycerin 0.4 mg sublingual 0.4 mg sublingual Q5M PRN chest 01/18/21 tablet pain #30 tabs loratadine 10 mg tablet 10 mg PO DAILY #90 tabs 02/08/24 promethazine-DM 6.25 mg-15 mg/5 mL 5 ml PO Q6H PRN cough #180 mL 03/27/24 oral syrup albuterol sulfate 2.5 mg/3 mL See Rx Instructions .Route 04/04/24 (0.083 %) solution for nebulization .COMPLEX #180 mL meclizine 25 mg tablet 25 mg PO TID PRN dizziness #30 tabs 06/24/24 methylprednisolone 4 mg tablets in See Rx Instructions PO PER PKG DIR 06/24/24 a dose pack (Medrol ([place]on)) #21 ea budesonide-formoterol HFA 80 2 puff inhalation Q12H 30 days 03/19/25 mcg-4.5 mcg/actuation aerosol #10.2 grams inhaler (Symbicort) guaifenesin 1,200 mg tablet, 1,200 mg PO BID #30 tabs 03/19/25 extended release 12 hr (Mucinex) prednisone 20 mg tablet 20 mg PO BID #10 tabs 03/19/25 promethazine-DM 6.25 mg-15 mg/5 mL 10 ml PO Q6H PRN cough #240 mL 03/19/25 oral syrup albuterol sulfate 90 mcg/actuation 2 inh inhalation Q4H PRN shortness 03/25/25 aerosol inhaler of breath or wheezing #6.7 grams allopurinol 300 mg tablet See Rx Instructions .Route 03/25/25 .COMPLEX #90 tabs amlodipine 10 mg tablet 10 mg PO QAM #90 tabs 03/25/25 atorvastatin 40 mg tablet 40 mg PO BEDTIME #90 tabs 03/25/25 benazepril 20 mg tablet 20 mg PO DAILY #90 tabs 03/25/25 fluticasone propionate 50 1 spray intranasal DAILY #16 grams 03/25/25 mcg/actuation nasal spray,suspension (Flonase Allergy Relief) hydrochlorothiazide 25 mg tablet 25 mg PO DAILY #90 tabs 03/25/25 isosorbide mononitrate 60 mg See Rx Instructions .Route 03/25/25 tablet,extended release 24 hr .COMPLEX #90 tabs metformin 500 mg tablet 500 mg PO DAILY #90 tabs 03/25/25 metoprolol tartrate 50 mg tablet 50 mg PO BID #180 tabs 03/25/25 omeprazole 20 mg capsule,delayed See Rx Instructions .Route 03/25/25 release .COMPLEX #180 caps prednisone 20 mg tablet See Rx Instructions PO .COMPLEX #9 03/28/25 tabs meclizine 25 mg tablet 25 mg PO BID PRN dizziness #28 tabs 05/13/25 amoxicillin 875 mg-potassium 1 tab PO BID #20 tabs 05/20/25 clavulanate 125 mg tablet prednisone 20 mg tablet 20 mg PO BID #10 tabs 05/20/25 ketorolac 10 mg tablet 10 mg PO Q6H PRN pain 5 days #20 05/30/25 tabs ondansetron HCl 4 mg tablet 4 mg PO Q6H PRN nausea and 05/30/25 vomiting #20 tabs oxycodone 5 mg tablet 5 mg PO Q6H severe pain #12 tabs 05/30/25 Allergies Allergy/AdvReac Type Severity Reaction Status Date / Time No Known Allergies Allergy Verified 05/30/25 17:58 PFS ED PFSH: Medical History (Updated 05/30/25 @ 21:56 by Leticia Stubbs MD) Chronic bronchitis Atherosclerosis of coronary artery Type 2 diabetes mellitus Chronic frontal sinusitis Chronic vasomotor rhinitis Fracture of triquetrum of left wrist Obstructive sleep apnea Allergic rhinosinusitis Nicotine addiction Allergic rhinosinusitis Nasal obstruction Nasal turbinate hypertrophy Nasal septal deformity Chronic sinusitis Hypertension Hypercholesteremia Surgical History History of sinus surgery H/O sinus surgery Family History Brother , Age 51 Heart attack Social History Smoking and tobacco/nicotine status: never used tobacco/nicotine Alcohol intake: current Alcohol intake frequency: holidays/special occasions only Substance/Drug Use: never Lives independently: Yes Household members: significant other Marital status: Single Current occupational status: disabled Do you think of yourself as: Straight/Heterosexual Current gender identity: Male Physical Exam Narrative: EXAM NARRATIVE: Vital signs were reviewed. Patient is alert and oriented. Patient is breathing comfortably, no increased WOB or accessory muscle use. SpO2 is above 95% on RA. Patient has clear lungs b/l, no rhonchi, wheezing or crackles. No hypotension or tachycardia. Abdomen is soft, nondistended. +tenderness in the RLQ. +R CVA tenderness/discomfort w/percussion of the R flank. Patient is moving all extremities, no deformity or gross injury. No lower extremity edema or asymmetry. Course Vital Signs: Vital signs: Vital Signs Temperature 97.8 F 05/30/25 17:53 Pulse Rate 95 05/30/25 20:16 Respiratory Rate 16 05/30/25 20:16 Blood Pressure 178/96 05/30/25 20:16 Pulse Oximetry 95 05/30/25 20:16 Oxygen Delivery Me thod Room Air 05/30/25 20:16 MDM - General Adult Medical Decision Making 64yo M w/cc of RLQ and R flank pain starting at 15:00 this afternoon, suddenly, a/w n/v. Differential diagnosis includes, but is not limited to, pancreatitis, cholecystitis, gastroenteritis, appendicitis, urinary tract infection, pyelonephritis, nephrolithiasis, SBO, diverticulitis, other. On initial exam, patient is hemodynamically stable and nontoxic appearing. Patient was evaluated with CBC, CMP, lipase, UA and CT abd/pelvis. Patient was treated with IV morphine and Zofran. On reassessment, patient still complains of pain and was given additional dose of IV pain medication. Patient has a normal white blood cell count and is afebrile. He is not anemic. Patient does not have any actionable electrolyte abnormalities that need to be corrected in the emergency department. He has normal kidney function liver function and a normal lipase. UA shows hematuria but there does not appear to be infection present. CT scan shows: CT abd/pelvis: IMPRESSION: 1. Right ureteropelvic junction stone 3 mm diameter. Mild hydronephrosis. 2. Gallbladder findings likely represent sludge/small stones; no imaging evidence of cholecystitis. 3. Hepatic stable right liver chronic peripheral-capsular small calcifications (x2) and left liver lobe coarse calcifications, likely sequelae of prior granulomatous infection, not significantly changed 4. Moderate age-appropriate degenerative spinal changes. Other chronic/non-acute findings as described above. Discussed result with patient he was advised on incidental findings on gallbladder sludge. On reassessment, patient is comfortably resting in bed and his pain is under control. Patient is appropriate for outpatient management and follow-up with urology on an outpatient basis. Will provide a referral. Patient was counseled on supportive care at home, given return precautions and discharged in stable condition with recommendation for outpatient follow-up with primary care nurse or doctor. Lab Data 05/30/25 18:10 05/30/25 18:10 Radiology Impressions Abdomen/Pelvis CT 05/30/25 18:49 IMPRESSION: 1. Right ureteropelvic junction stone 3 mm diameter. Mild hydronephrosis. 2. Gallbladder findings likely represent sludge/small stones; no imaging evidence of cholecystitis. 3. Hepatic stable right liver chronic peripheral-capsular small calcifications (x2) and left liver lobe coarse calcifications, likely sequelae of prior granulomatous infection, not significantly changed 4. Moderate age-appropriate degenerative spinal changes. Other chronic/non-acute findings as described above. Laboratory Results WBC 10.81 10^3/uL (3.29-11.43) 05/30/25 18:10 RBC 5.11 10^6/uL (3.85-5.65) 05/30/25 18:10 Hgb 15.10 g/dL (11.27-16.99) 05/30/25 18:10 Hct 44.3 % (37-53) 05/30/25 18:10 MCV 86.7 fl (82-101) 05/30/25 18:10 MCH 29.5 pg (27-33) 05/30/25 18:10 MCHC 34.1 g/dL (30-55) 05/30/25 18:10 RDW 13.6 % (12.1-15.1) 05/30/25 18:10 Plt Count 281 10^3/cmm (157-399) 05/30/25 18:10 MPV 10.1 fL (7.4-10.4) 05/30/25 18:10 Neut % (Auto) 69.1 % 05/30/25 18:10 Lymph % (Auto) 21.5 % 05/30/25 18:10 [place] % (Auto) 8.0 % 05/30/25 18:10 Eos % (Auto) 0.8 % 05/30/25 18:10 Baso % (Auto) 0.3 % 05/30/25 18:10 Neut # (Auto) 7.47 10^3/uL (1.8-7.7) 05/30/25 18:10 Lymph # (Auto) 2.3 10^3/uL (0.8-4.8) 05/30/25 18:10 [place] # (Auto) 0.9 10^3/uL (0.2-0.9) 05/30/25 18:10 Eos # (Auto) 0.1 10^3/uL (0.0-0.8) 05/30/25 18:10 Baso # (Auto) 0.0 10^3/uL (0.0-0.1) 05/30/25 18:10 Nucleated RBC % (auto) 0 % 05/30/25 18:10 Nucleated RBCs # 0.0 /100WBC 05/30/25 18:10 Sodium 140 mmol/L (136-145) 05/30/25 18:10 Potassium 3.4 mmol/L (3.5-5.1) L 05/30/25 18:10 Chloride 100 mmol/L (98-107) 05/30/25 18:10 Carbon Dioxide 26 mmol/L (22-29) 05/30/25 18:10 Anion Gap 17.4 (5-19) 05/30/25 18:10 BUN 10 mg/dL (8-23) 05/30/25 18:10 Creatinine 1.0 mg/dL (0.7-1.2) 05/30/25 18:10 GFR Calculation 75.7 mL/min (90-130) L 05/30/25 18:10 Glucose 226 mg/dL (65-115) H 05/30/25 18:10 Calculated Osmolality 296 mOsm/kg (285-295) H 05/30/25 18:10 Calcium 8.6 mg/dL (8.5-10.5) 05/30/25 18:10 Total Bilirubin 1.1 mg/dL (0.15-1.2) 05/30/25 18:10 AST 20 U/L (0-40) 05/30/25 18:10 ALT 19 U/L (0-41) 05/30/25 18:10 Alkaline Phosphatase 106 U/L (40-130) 05/30/25 18:10 Total Protein 6.5 g/dL (6.6-8.7) L 05/30/25 18:10 Albumin 3.7 g/dL (3.5-5.2) 05/30/25 18:10 Globulin 2.8 g/dL (1.3-4.6) 05/30/25 18:10 Lipase 27 U/L (13-60) 05/30/25 18:10 Urine Color Yellow (Yellow) 05/30/25 20:36 Urine Appearance Clear (CLEAR) 05/30/25 20:36 Urine pH 6.0 (5-7) 05/30/25 20:36 Ur Specific [place] 1.067 (1.005-1.030) H 05/30/25 20:36 Urine Protein Trace (Negative) A 05/30/25 20:36 Urine Glucose (UA) Negative (Normal) 05/30/25 20:36 Urine Ketones Negative (Negative) 05/30/25 20:36 Urine Blood 3+ (Negative) A 05/30/25 20:36 Urine Nitrate Negative (Negative) 05/30/25 20:36 Urine Bilirubin Negative (Negative) 05/30/25 20:36 Urine Urobilinogen 1.0 mg/dL (Negative) 05/30/25 20:36 Ur Leukocyte Esterase Negative (Negative) 05/30/25 20:36 Urine RBC >100 /hpf (0-2) H 05/30/25 20:36 Urine WBC 0-5 /hpf (0-5) 05/30/25 20:36 Ur Squamous Epith Cells 0-5 /hpf (0-5) 05/30/25 20:36 Amorphous Sediment Not Reportable 05/30/25 20:36 Urine Bacteria None seen /hpf (NONE) 05/30/25 20:36 Hyaline Casts 0.40 /lpf 05/30/25 20:36 All radiology interpretation(s) finalized by discharge Discharge Plan Discharge Patient Disposition: Home Clinical Impression: Kidney stone on right side, Hepatic calcification, Sludge in gallbladder Condition: Stable Prescriptions: New ondansetron HCl 4 mg tablet 4 mg PO Q6H PRN (Reason: nausea and vomiting) Qty: 20 0RF oxycodone 5 mg tablet 5 mg PO Q6H Qty: 12 0RF ketorolac 10 mg tablet 10 mg PO Q6H PRN (Reason: pain) 5 Days Qty: 20 0RF No Action aspirin [Adult Aspirin Regimen] 81 mg tablet,delayed release (DR/EC) 81 mg PO QAM loratadine 10 mg tablet 10 mg PO DAILY Qty: 90 3RF promethazine-DM 6.25-15 mg/5 mL syrup 5 ml PO Q6H PRN (Reason: cough) Qty: 180 0RF prednisone 20 mg tablet 20 mg PO BID Qty: 10 0RF promethazine-DM 6.25-15 mg/5 mL syrup 10 ml PO Q6H PRN (Reason: cough) Qty: 240 0RF guaifenesin [Mucinex] 1,200 mg tablet extended release 12hr 1,200 mg PO BID Qty: 30 0RF budesonide-formoterol [Symbicort] 80-4.5 mcg/actuation HFA aerosol inhaler 2 puff INHALATION Q12H 30 Days Qty: 10.2 3RF metformin 500 mg tablet 500 mg PO DAILY Qty: 90 0RF isosorbide mononitrate 60 mg tablet extended release 24 hr See Rx Instructions .ROUTE .COMPLEX Qty: 90 0RF Dose Instruction: TAKE ONE TABLET BY MOUTH DAILY Rx Instructions: TAKE ONE TABLET BY MOUTH DAILY allopurinol 300 mg tablet See Rx Instructions .ROUTE .COMPLEX Qty: 90 0RF Dose Instruction: TAKE ONE TABLET BY MOUTH EVERY MORNING Rx Instructions: TAKE ONE TABLET BY MOUTH EVERY MORNING hydrochlorothiazide 25 mg tablet 25 mg PO DAILY Qty: 90 0RF benazepril 20 mg tablet 20 mg PO DAILY Qty: 90 0RF amlodipine 10 mg tablet 10 mg PO QAM Qty: 90 0RF metoprolol tartrate 50 mg tablet 50 mg PO BID Qty: 180 0RF atorvastatin 40 mg tablet 40 mg PO BEDTIME Qty: 90 0RF albuterol sulfate 90 mcg/actuation HFA aerosol inhaler 2 inh inhalation Q4H PRN (Reason: shortness of breath or wheezing) Qty: 6.7 5RF Rx Instructions: Please provide patient with a spacer omeprazole 20 mg capsule,delayed release(DR/EC) See Rx Instructions .ROUTE .COMPLEX Qty: 180 0RF Dose Instruction: TAKE ONE CAPSULE BY MOUTH TWICE DAILY Rx Instructions: TAKE ONE CAPSULE BY MOUTH TWICE DAILY fluticasone propionate [Flonase Allergy Relief] 50 mcg/actuation spray,suspension 1 spray intranasal DAILY Qty: 16 0RF Rx Instructions: administer into each nostril prednisone 20 mg tablet See Rx Instructions PO .COMPLEX Qty: 9 0RF Rx Instructions: BID X 3 days, once daily X 3 days meclizine 25 mg tablet 25 mg PO BID PRN (Reason: dizziness) Qty: 28 0RF prednisone 20 mg tablet 20 mg PO BID Qty: 10 0RF amoxicillin-pot clavulanate 875-125 mg tablet 1 tab PO BID Qty: 20 0RF albuterol sulfate 2.5 mg /3 mL (0.083 %) solution for nebulization See Rx Instructions .ROUTE .COMPLEX Qty: 180 0RF Dose Instruction: Inhale ONE vial via NEBULIZER FOUR TIMES DAILY NEEDED FOR SHORTNESS OF BREATH OR FOR WHEEZING Rx Instructions: Inhale ONE vial via NEBULIZER FOUR TIMES DAILY NEEDED FOR SHORTNESS OF BREATH OR FOR WHEEZING nitroglycerin 0.4 mg tablet, sublingual 0.4 mg sublingual Q5M PRN (Reason: chest pain) Qty: 30 3RF Rx Instructions: do not exceed 3 doses per episode montelukast 10 mg tablet 10 mg PO BEDTIME methylprednisolone [Medrol ([place]ameron)] 4 mg tablets,dose pack See Rx Instructions PO PER PKG DIR Qty: 21 0RF Rx Instructions: PO PER PKG DIR meclizine 25 mg tablet 25 mg PO TID PRN (Reason: dizziness) Qty: 30 0RF Discharge Orders: Discharge ED (Routine); Ordered 05/30/25 Ordered By: Leticia Stubsb Patient Instructions: Kidney Stones (ED), How to Strain Your Urine (ED), Abdominal Pain (ED), Opioid Safety, Pain Management, Patient Portal & Jelena Instructions Activity Restrictions/Additional Instructions: Please continue to monitor your condition closely at home. Take Toradol 10mg and Tylenol 500-1000mg every six hours for pain and inflammation. For severe breakthrough pain, you may take an oxycodone. If you feel nauseated, you may try Zofran. Stay hydrated. If your condition worsens or additional concerns arise, please return promptly to the emergency department for reassessment. Follow up with urology within one week. Print Language: Maltese Coding Level of Care Code ED Telecommunications Technician for Eliana Boyce
[2025-05-30] MEDS: iohexol 350 mg/mL 500 mL Btl (per mL) IV (19:31)
[2025-05-30] MEDS: HYDROmorphone 0.5 MG/0.5 ML INJ 1 MG IVP (20:13)
[2025-05-30 20:16] VITALS: BP 178/96; PULSE 95; RESP 16; O2SAT 95
[2025-05-30 21:06] LABS: Glucose Urine UA Negative (Normal); Nitrate Urine Negative (Negative)
[2025-05-30 21:11] LABS: Add Urine Microscopic? YES
[2025-05-30 21:17] LABS: Specific Gravity, Urine 1.067 (1.005-1.030)
[2025-05-30 22:29] VITALS: BP 140/71; PULSE 93; O2SAT 98
--- NOTE | 2025-05-31 06:04 | DCPLANNER ---
Referral sent to [facility] Urolog
== END 2025-05-30 22:20 | disposition home or self-care (01) ==
PROVIDERS: Physician Assistant; Emergency Provider Emergency Medicine
DX: N20.0 Calculus of kidney (principal); K76.89 Other specified diseases of liver; K82.8 Other specified diseases of gallbladder; Z79.82 Long term (current) use of aspirin; Z79.84 Long term (current) use of oral hypoglycemic drugs; E11.9 Type 2 diabetes mellitus without complications; I10 Essential (primary) hypertension; I25.10 Atherosclerotic heart disease of native coronary artery without angina pectoris
CPT/HCPCS: 36415; 74177; 80053; 81001; 83690; 85025; 87086; 96374; 96375; 99285; J1171; J1885; J2270; J2405